=== PATIENT | female | born 1965 | race Caucasian/White ===

== ENCOUNTER 2020-01-25 16:31 | Observation (INO) | payer MEDICARE ==
[~2020-01-25] VITALS: Ht 152.4 cm; Wt 57.6 kg
[2020-01-25] MEDS ORDERED: SODIUM CHLORIDE 0.9% 1000ML 1,000 ML IV STA (16:49)
[2020-01-25] MEDS ORDERED: ASPIRIN 81 MG CHEW TAB PO ONE (17:00)
--- OUTSIDE RECORDS SUMMARY | 2020-01-25 17:06 | XMS REPORT | Continuity of Care Document ---
Author Author Mikaela [facility] Address Unknown Phone Unavailable Care Team Providers Care Mails Supervisor Name Role Phone [employer] Unavailable Un available Problems Problem Status Onset Date Classification Date Reported Comments Source Hypertension Active 03/11/2013 [facility] Hyperlipidemia Active 03/11/2013 [facility] Medications Medication Details Route Status Patient Instructions Ordering Provider Order Date Source Ambien 10 MG Oral Tablet (Act stephanie) Active [facility] Allergies, Adverse Reactions, Alerts Substance Category Reaction Severity Reaction type Status Date Reported Comments Source No Known Drug Allergies drug a llergy drug aller gy Active [facility] Immunizations No Data Provided for This Section Results No Data Provided for This Section Pathology Reports No Data Provided for This Section Diagnostic Reports No Data Provided for This Section Consultation Notes No Data Provided for This Section Discharge Summaries No Data Provided for This Section History and Physicals No Data Provided for This Section Vital Signs No Data Provided for This Section Encounters Location Location Details Encounter Type Encounter Number Reason For Visit Attending Provider ADM Date DC Date Status Source AUDIT [id number] 03/11/2013 03/11/2013 [facility] Procedures No Data Provided for This Section Assessment and Plan No Data Provided for This Section Plan of Care No Data Provided for This Section Social History Social History Date Source Marital History - Currently (Active) Current Smoker (305.1); (Active) Being A Social Drinker (Active) 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 03/11/2013 [facility] Functional Status No Data Provided for This Section
--- OUTSIDE RECORDS SUMMARY | 2020-01-25 17:06 | XMS REPORT | Clinical Summary ---
Author Author [facility] Address Unknown Phone Unavailable Care Team Providers Care Director Process Name Role Phone Nuvia Johnston MD PCP Allergies Not on File Medications Not on file Active Problems Not on file Social History Date Tobacco Use Types Packs/Day Years Used Never Assessed Sex Assigned at Date Recorded Not on file Last Filed Vital Signs Not on file Plan of Treatment Health Maintenance Due Date Last Done Comments CERVICAL CANCER SCREENING 1986 BREAST CANCER SCREENING 11/11/2015 COLONOSCOPY SCREENING 11/11/2015 SHINGLES VACCINES (#1) 11/11/2015 INFLUENZA VACCINE 10/19/2019 Results Not on fileafter 01/24/2019 Insurance Type Payer Benefit Subscriber ID Effective Phone Address Plan / Dates Group HMO [employer] MED[employer]ID [employer] [id number] 2017-P [facility]ON[facility] Advance Directives For more information, please contact: [phone] Patient Critical Care Cns Explanation Type Date Recorded Advance Directives, Living Will and Medical Power of Egg Tester
--- OUTSIDE RECORDS SUMMARY | 2020-01-25 17:07 | XMS REPORT | Continuity of Care Document ---
Author Author [facility] t Organization [facility] Address [address] [place] [address] Phone Unavailable Care Team Providers Care Tailoring Teacher Name Role Phone Glen Johnston MD PCP Ervin Perez MA Attphys MARJORIE EUGENE M.D. Attphys Unavailable LEE KAUFFMAN M.D. Attphys Unavailable [facility] [place] Attphys Unavailable SALVATORE ASTUDILLO D.O. 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 Disease Active 2017-12-06 00:00:00 MD Goodwin Encounter for adjustment and management of vascular ac cess device Encounter for adjustment and management of vascular access device Disease Active 2017-12-05 00:00:00 Overview: Added automaticall y from request for surgery [id number] MD Goodwin Malignant neoplasm of breast of unspecified site, fema le Malignant neoplasm of breast of unspecified site, female Disease Active 2017-12-05 00:00:00 Overview: Added automatically from request for surgery [id number] MD Goodwin Thoracic spondylosis without myelopathy Thoracic spondylosis without myelopathy Disease Active 2017-09-06 00:00:00 MD Goodwin Bilateral trochanteric bursitis Bilateral trochanteric bursitis Dis ease Active 2017-07-07 00:00:00 MD Zuniga son Pain in thoracic spine Pain in thoracic spine Disease Active 2017-07-07 00:00:00 MD Goodwin Lumbar radiculopathy Lumbar radiculopathy Disease Active 00:00:00 MD Goodwin Bursitis of right hip Bursitis of right hip Disease Active 09-17-26 00:00:00 Overview: 12/18 Regulatory Import MD Goodwin Neoplasm related pain (acute) (chronic) Neoplasm related rhoda n (acute) (chronic) Disease Active 2016-04-15 00:00:00 MD Goodwin 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 Active 2015-12-17 00:00:00 MD Goodwin 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 Disease Active 2015-11-30 00:00:00 MD Marshall nderson History of Uncontrolled other specified diabetes melli tus with hyperglycemia History of Uncontrolled other specified diabetes mellitus with hyperglycemia Problem Resolved [facility] History of insomnia History of insomnia Problem Resolved [facility] History of Multiparity History of Multiparity Problem Resolved [facility] Flashing light Flashing light Problem Active [facility] Chronic insomnia Chronic insomnia Problem Active [facility] Sinus tachycardia Sinus tachycardia Problem Active [facility] Essential (primary) hypertension Essential (primary) hypertensio n Problem Active [facility] History of chronic back pain History of chronic back pain Problem Active [facility] Neuropathy [facility]athy [facility] Hyperglycemia Hyperglycemia Problem Active [facility] Immunity status testing Immunity status testing Problem Active [facility] Flu vaccine need Flu vaccine need Problem Active [facility] PPD screening test PPD screening test Problem Active [facility] Tinea corporis Tinea corporis Problem Active [facility] BPPV (benign paroxysmal positional vertigo), bilateral BPPV (benign paroxysmal positional vertigo), bilateral Problem Active [facility] Hyperlipidemia Hyperlipidemia Problem Active [facility] Vision problem Vision problem Problem Active [facility] Depressive disorder Depressive disorder Problem Active [facility] Hearing problem, right Hearing problem, right Problem Active [facility] Pulsatile tinnitus Pulsatile tinnitus Problem Active [facility] Depression with anxiety Depression with anxiety Problem Active [facility] Abnormal glucose Abnormal glucose Problem Active [facility] Dizziness Dizziness Problem Active [facility] 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 Problem Active [facility] Vitamin D deficiency Vitamin D deficiency Problem Active [facility] Malignant neoplasm of axillary tail of left female mariola ast Malignant neoplasm of axillary tail of left female breast Problem Active [facility] Nausea and vomiting in adult Nausea and vomiting in adult Problem Active [facility] Anemia, unspecified type Anemia, unspecified type Problem Active [facility] Abnormal TSH Abnormal TSH Problem Active [facility] Headache Head[facility] Hypertension Hype rtension Active 03/11/2013 [facility] Problem Active 2013-03-11 20:18:02 Griffin Vasquez Hyperlipidemia Hype rlipidemia Active 03/11/2013 [facility] Problem Active 2013-03-11 20:18:02 M merrick Vasquez Allergies, Adverse Reactions, Alerts Allergy Name Allergy Type Status Severity Reaction(s) Onset Date Inacti ve Date Treating Clinician Comments Source oxycodone DA Active OR 2018-06-22 00:00:00 [facility] oxycodone DA Active OR 2018-06-21 00:00:00 [facility] No Known Allergies DA Active U 2018-05-20 00:00:00 [facility] OxyCONTIN T12A Allergy to drug (finding) Active [facility] fentanyl Allergy to drug (finding) Active [facility] No Known Drug Allergies No Known Drug Allergies Active Mikaela Vasquez Family History Family Member Diagnosis Comments Start Date Stop Date Source Mother Family history of Hypertension [facility] Mother Family history of Diabetes Mellitus [facility] Mother Family history of Coronary Artery Disease [facility] Mother Family history of Breast Cancer [facility] Mother Family history of diabetes mellitus [facility] Mother Family history of hypertension [facility] Father Family history of Hypertension [facility] Father Family history of Rheumatoid Arthritis [facility] Father Family history of hyperlipidemia [facility] Father Family history of hypertension [facility] Father Family history of cerebrovascular accident (CVA) [facility] Brother Family history of diabetes mellitus [facility] Maternal aunt -Breast cancer MD Dariel mckeon Unknown Family Member Family History 2013-03-11 20:18:02 2 20:18:02 [facility] Social History Social Habit Start Date Stop Date Quantity Comments Source History of tobacco use Cigarette Smoker MD Goodwin Sex Assigned At MD Goodwin Tobacco use and exposure 2017-12-23 00:00:00 2017-12-23 00:00:00 Sunil hoover used MD Goodwin Alcohol intake 2017-12-23 00:00:00 2017-12-23 00:00:00 Current non-drinker of alcohol (finding) MD Goodwin Tobacco Comment 2017-12-06 00:00:00 2017-12-06 00:00:00 Wants to quit 3 a day MD Goodwin Social History 2013-03-11 20:18:02 2013-03-11 20:18:02 [facility] Smoking Status Start Date Stop Date Source Smokes tobacco daily (finding) [facility] Former smoker 2017-12-23 00:00:00 2017-12-23 00:00:00 MD Zuniga son Medications Ordered Medication Name Filled Medication Name Start Date Stop Da te Current Medication? Ordering Clinician Indication Dosage Frequency Signature (SIG) Comments Components Source Sucralfate 1 GM Oral Tablet Sucralfate 1 GM Oral Tablet 2019-12-11 00:00:00 Yes MARJORIE EUGENE M.D. Q0.25D TAKE 1 TAB LET 4 TIMES DAILY, BEFORE MEALS AND AT BEDTIME. [facility] Vitamin D3 1.25 MG (86147 UT) Oral Tablet Vitamin D3 1 .25 MG (29400 UT) Oral Tablet 2019-11-26 00:00:00 Yes MARJORIE EUGENE M.D. TAKE 1 TABLET ONCE A WEEK [facility] Zoledronic Acid 4 MG/100ML Intravenous Solution Zoledr onic Acid 4 MG/100ML Intravenous Solution 2019-11-19 00:00:00 Yes MARJORIE SATTAR M.D. once a month [facility] cloNIDine HCl - 0.1 MG Oral Tablet cloNIDine HCl - 0.1 MG Or al Tablet 2019-11-19 00:00:00 Yes MARJORIE EUGENE M.D. TA KE 1 TABLET DAILY as needed if blood pressure > 150/90 [facility] Omeprazole 20 MG Oral Capsule Delayed Release Omeprazo le 20 MG Oral Capsule Delayed Release 2019-11-19 00:00:00 Yes MARJORIE EUGENE M.D. QD TAKE 1 CAPSULE DAILY EVERY MORNING BEFORE BREAKFAST. [facility] capecitabine (XELODA) 500 mg tablet 2018-01-11 00:00:00 Yes Malignant neoplasm of unspecified site of unspecified female breast 3000mg Take 6 tablets (3,000 mg) by mouth in divided doses. 3 tabs QAM and 3 tabs QPM x 14 days, then none x 7 days. MD Goodwin HYDROcodone-acetaminophen (NORCO) 7.5 mg-325 mg per tablet 2018-01-11 00:00:00 Yes Malignant neoplasm of unspec ified site of unspecified female breast 1{tbl} Take 1 tablet by mouth every 6 (six) hours as needed for moderate pain. MD Goodwin nebivolol (BYSTOLIC) 5 MG tablet 2017-12-29 18:45:26 Yes 5mg Take 5 mg by mouth daily. MD Goodwin lactulose (CHRONULAC) 10 gram/15 mL solution 2017-12-20 00:0 0:00 Yes Malignant neoplasm of unspecified site of unspecified female breast 10g Take 15 mL (10 g) by mouth 2 (two) times a day as needed for constipation. MD Goodwin lidocaine-prilocaine (EMLA) 2.5-2.5% cream 2017-12-06 00:00: 00 Yes Encounter for adjustment and management of vascular access device Apply to Port-A-Cath area 30 to 45 minutes prior to port access as directed (topical anesthetic to the anterior chest only). MD Goodwin IBRANCE 125 mg capsule 2017-11-05 00:00:00 Yes 125mg Take 125 mg by mouth daily. MD Goodwni traMADol (ULTRAM) 50 mg tablet 2017-10-03 00:00:00 Yes Neoplasm related pain (acute) (chronic) 50mg Take 1 tablet (50 mg) by mouth every 6 (six) hours as needed for moderate pain. MD Goodwin Ambien 10 MG Oral Tablet 2013-03-11 20:18:02 Yes (Active) Mikaela Vasquez Buprenorphine 10 MCG/HR Transdermal Patch Weekly Bupre norphine 10 MCG/HR Transdermal Patch Weekly Yes [facility] traMADol HCl - 50 MG Oral Tablet traMADol HCl - 50 MG Oral Tablet Yes TAKE 1 TABLETS BY MOUTH EVERY 12 HOURS NEEDED FOR PAIN [facility] Gabapentin 600 MG Tab (OR) - [id number]_Deactivated Gabapen tin 600 MG Tab (OR) - [id number]_Deactivated Yes 1 TAKE 1 TABLET BEDTIM E [facility] Immunizations Ordered Immunization Name Filled Immunization Name Date Status Comments Source Fluzone Quadrivalent 0.5 ML Intramuscular Suspension 2018-02-22 12:01:00 Completed [facility] Recombivax HB 10 MCG/ML Injection Suspension 2016-07-25 10 :10:00 Completed [facility] Hepatitis B 2016-06-24 14:23:00 Completed [facility] Tubersol 5 UNIT/0.1ML Intradermal Solution 2016-06-21 14:4 3:00 Completed [facility] Tdap (Adacel) 2016-06-21 13:17:00 [facility] Influ[facility] 2016-01-14 16:03:00 [facility] Vital Signs Vital Name Observation Time Observation Value Comments Source Systolic blood pressure 2019-12-11 09:39:00 120 mm[Hg] Loca tion: LUE; Position: Sitting [facility] Diastolic blood pressure 2019-12-11 09:39:00 66 mm[Hg] Loc ation: LUE; Position: Sitting [facility] Body height 2019-12-11 09:39:00 60 [in_us] [facility] Weight 2019-12-11 09:39:00 134.375 [lb_av] [facility] Body mass index (BMI) [Ratio] 2019-12-11 09:39:00 26.24 kg/m2 [facility] Body temperature 2019-12-11 09:39:00 97.4 [degF] Method: Temporal [facility] Heart Rate 2019-12-11 09:39:00 118 /min [facility] Respiratory rate 2019-12-11 09:39:00 16 /min [facility] Systolic blood pressure 2019-11-19 08:13:00 138 mm[Hg] Loca tion: RUE; Position: Sitting [facility] Diastolic blood pressure 2019-11-19 08:13:00 90 mm[Hg] Loc ation: RUE; Position: Sitting [facility] Heart Rate 2019-11-19 08:13:00 116 /min [facility] Body height 2019-11-19 08:13:00 60 [in_us] [facility] Weight 2019-11-19 08:13:00 134.3125 [lb_av] [facility] Body mass index (BMI) [Ratio] 2019-11-19 08:13:00 26.23 kg/m2 [facility] Body temperature 2019-11-19 08:13:00 98 [degF] Method: Temporal [facility] Respiratory rate 2019-11-19 08:13:00 16 /min [facility] BP Systolic 2018-10-05 10:19:00 126 mm[Hg] Location: RUE; Positi on: Sitting [facility] BP Diastolic 2018-10-05 10:19:00 89 mm[Hg] Location: RUE; Positi on: Sitting [facility] Heart Rate 2018-10-05 10:19:00 111 /min Location: R Brachial Artery; [facility] BP Systolic 2018-10-05 10:16:00 147 mm[Hg] Location: RUE; Positi on: Sitting [facility] BP Diastolic 2018-10-05 10:16:00 93 mm[Hg] Location: RUE; Positi on: Sitting [facility] Heart Rate 2018-10-05 10:16:00 109 /min Location: R Brachial Artery; [facility] Height 2018-10-05 10:16:00 60 [in_us] [facility] Weight 2018-10-05 10:16:00 147.5625 [lb_av] [facility] Body Mass Index Calculated 2018-10-05 10:16:00 28.82 kg/m2 [facility] Temperature 2018-10-05 10:16:00 97.8 [degF] Method: Temporal [facility] Respiration Rate 2018-10-05 10:16:00 109 /min [facility] Systolic 2018-07-17 10:22:00 128 mm[Hg] [facility] BP Diastolic 2018-07-17 10:22:00 85 mm[Hg] [facility] Height 2018-07-17 10:22:00 60 [in_us] [facility] Weight 2018-07-17 10:22:00 149.125 [lb_av] [facility] Body Mass Index Calculated 2018-07-17 10:22:00 29.12 kg/m2 [facility] Heart Rate 2018-07-17 10:22:00 80 /min [facility] BP Systolic 2018-06-05 09:30:00 132 mm[Hg] Location: ALESHA Positi on: Sitting [facility] BP Diastolic 2018-06-05 09:30:00 86 mm[Hg] Location: SLY; Positi on: Sitting [facility] Height 2018-06-05 09:30:00 60 [in_us] [facility] Weight 2018-06-05 09:30:00 146.3125 [lb_av] [facility] Body Mass Index Calculated 2018-06-05 09:30:00 28.57 kg/m2 [facility] Temperature 2018-06-05 09:30:00 98.4 [degF] Method: Temporal [facility] Heart Rate 2018-06-05 09:30:00 108 /min [facility] Respiration Rate 2018-06-05 09:30:00 16 /min [facility] BP Systolic 2018-03-26 09:08:00 116 mm[Hg] Location: JOSI Positi on: Sitting [facility] BP Diastolic 2018-03-26 09:08:00 78 mm[Hg] Location: [place]; Pos[place] on: Sitting [facility] Height 2018-03-26 09:08:00 60 [in_us] [facility] Weight 2018-03-26 09:08:00 149.25 [lb_av] [facility] Body Mass Index Calculated 2018-03-26 09:08:00 29.15 kg/m2 [facility] Temperature 2018-03-26 09:08:00 98.1 [degF] Method: Temporal [facility] Heart Rate 2018-03-26 09:08:00 98 /min [facility] Respiration Rate 2018-03-26 09:08:00 12 /min [facility] BP Systolic 2018-02-22 09:18:00 139 mm[Hg] Location: AL[place]HA Positi on: Sitting [facility] BP Diastolic 2018-02-22 09:18:00 88 mm[Hg] Location: SLY; Positi on: Sitting [facility] Height 2018-02-22 09:18:00 60 [in_us] [facility] Weight 2018-02-22 09:18:00 153.3125 [lb_av] [facility] Body Mass Index Calculated 2018-02-22 09:18:00 29.94 kg/m2 [facility] Temperature 2018-02-22 09:18:00 98.1 [degF] Method: Temporal [facility] Heart Rate 2018-02-22 09:18:00 76 /min [facility] Respiration Rate 2018-02-22 09:18:00 16 /min [facility] Procedures Procedure Date / Time Performed Performing Clinician Sourc e [Q] FECAL GLOBIN BY IMMUNOCHEMISTRY 2019-12-04 00:00:00 [facility] [QL] TSH, 3RD GENERATION 2019-11-26 00:00:00 [facility] [QL] CBC (INCLUDES DIFF/PLT) 2019-11-26 00:00:00 [facility] [Q] IRON, TIBC AND FERRITIN PANEL 2019-11-26 00:00:00 [facility] [QL] VITAMIN B12/FOLATE, SERUM PANEL 2019-11-26 00:00:00 [facility] [QL] CBC (INCLUDES DIFF/PLT) 2019-11-20 00:00:00 [facility] [Q] IRON, TIBC AND FERRITIN PANEL 2019-11-20 00:00:00 [facility] [QL] VITAMIN B12/FOLATE, SERUM PANEL 2019-11-20 00:00:00 [facility] [Q] FECAL GLOBIN BY IMMUNOCHEMISTRY 2019-11-20 00:00:00 [facility] [QL] TSH, 3RD GENERATION W/REFLEX TO FT4 2019-11-20 00:00:00 [facility] [QL] CBC (INCLUDES DIFF/PLT) 2019-11-19 00:00:00 [facility] [QL] CMP W/EGFR 2019-11-19 00:00:00 [facility] [QL] TSH, 3RD GENERATION W/REFLEX TO FT4 2019-11-19 00:00:00 [facility] [QL] HEMOGLOBIN A1c 2019-11-19 00:00:00 [facility] [QL] VITAMIN D, 25-HYDROXY, LC/MS/MS 2019-11-19 00:00:00 [facility] [QL] URINALYSIS, COMPLETE W/REFLEX TO CULTURE 2019-11-19 00:00:0 0 [facility] MRA and MRV Brain wo contrast [id number] 2018-07-17 00:00:00 [facility] History of Tubal Ligation [facility] History of Dilation And Curettage [facility] History of Breast Surgery Mastectomy [facility] Plan of Care Planned Activity Planned Date Details Comments Source Future Scheduled Test 2020-01-01 00:00:00 [QL] TSH, 3RD GENE RATION W/REFLEX TO FT4 [code = [QL] TSH, 3RD GENERATION W/REFLEX TO FT4] [facility] Diagnostic Test Pending 2019-12-04 00:00:00 [Q] FECAL GLOBIN BY IMMUNOCHEMISTRY [code = [Q] FECAL GLOBIN BY IMMUNOCHEMISTRY] [facility] Future Scheduled Test 2019-10-19 00:00:00 INFLUENZA VACCINE [code = INFLUENZA VACCINE] [facility] Scheduled Test 2015-11-11 00:00:00 BREAST CANCER SCRE ENING [code = BREAST CANCER SCREENING] [facility] Scheduled Test 2015-11-11 00:00:00 COLONOSCOPY SCREEN ING [code = COLONOSCOPY SCREENING] [facility] Scheduled Test 2015-11-11 00:00:00 SHINGLES VACCINES (#1) [code = SHINGLES VACCINES (#1)] [facility] Future Scheduled Test 1986 00:00:00 Screening for melany gnant neoplasm of cervix (procedure) [code = 940957823] [facility] Encounters Start Date/Time End Date/Time Encounter Type Admission Type Attendi [facility] Facility Care Department Encounter ID Source 2019-12-11 10:00:00 2019-12-11 10:00:00 Appointment; MARJORIE EUGENE M.D. SATTAR, BEENA, M.D. [facility] [id number] [facility] 2019-11-19 08:00:00 2019-11-19 08:00:00 Appointment; MARJORIE EUGENE M.D. SATTAR, BEENA, M.D. [facility] [id number] [facility] 2018-10-05 10:30:00 2018-10-05 10:30:00 Appointment; MARJORIE EUGENE M.D. SATTAR, BEENA, M.D. [facility] [id number] [facility] 2018-10-05 10:30:00 2018-10-05 10:30:00 Appointment; MARJORIE EUGENE M.D. SATTAR, BEENA, M.D. [facility] [id number] [facility] 2018-07-17 09:30:00 2018-07-17 09:30:00 Appointment; LEE KAUFFMAN M.D. BYRD, MICHAEL, M.D. [facility] Otorhinolaryngology [place] [address] [place] [address] Physicians 2018-06-25 09:00:00 2018-06-25 09:00:00 Appointment; MARJORIE EUGENE M.D. SATTAR, BEENA, M.D. [facility] [id number] [facility] 2018-06-05 09:30:00 2018-06-05 09:30:00 Appointment; MARJORIE EUGENE M.D. SATTAR, BEENA, M.D. [facility] [id number] [facility] 2018-03-26 09:00:00 2018-03-26 09:00:00 Appointment; MARJORIE EUGENE M.D. SATTAR, BEENA, M.D. [facility] [id number] [facility] 2018-02-22 09:15:00 2018-02-22 09:15:00 Appointment; MARJORIE EUGENE M.D. SATTAR MARJORIE, M.D. [facility] [id number] [facility] 2016-08-19 08:30:00 2016-08-19 08:30:00 Appointment; MARJORIE EUGENE M.D. SATTAR, BEENA, M.D. [facility] [id number] [facility] 2016-07-25 08:00:00 2016-07-25 08:00:00 Appointment; MARJORIE EUGENE M.D. SATTAR, BEENA, M.D. [facility] [id number] [facility] 2016-07-08 08:30:00 2016-07-08 08:30:00 Appointment; MARJORIE EUGENE M.D. SATTAR, BEENA, M.D. [facility] [id number] [facility] 2016-06-30 10:00:00 2016-06-30 10:00:00 [facility] [id number] [facility] 2016-06-24 07:45:00 2016-06-24 07:45:00 Appointment; MARJORIE EUGENE M.D. SATTAR, BEENA, M.D. [facility] [id number] [facility] 2016-06-21 13:30:00 2016-06-21 13:30:00 Appointment; MARJORIE EUGENE M.D. SATTAR, BEENA, M.D. [facility] [id number] [facility] 2016-05-27 08:30:00 2016-05-27 08:30:00 Appointment; MARJORIE EUGENE M.D. SATTAR, BEENA, M.D. [facility] [id number] [facility] 2016-04-15 13:30:00 2016-04-15 13:30:00 Appointment; MARJORIE EUGENE M.D. SATTAR, BEENA, M.D. [facility] UTP [id number] [facility] 2016-03-24 09:45:00 2016-03-24 09:45:00 Appointment; SALVATORE ASTUDILLO D.O. YEH, SHAO-CHUN, D.O. UTP UTP [id number] [facility] 2013-03-11 14:18:02 2013-03-11 14:18:[address] [id number] Results Test Description Test Time Test Comments Results Result Comments Source CBC W/MANUAL DIFF 2019-12-24 16:47:00 Test Item WHITE BLOOD CELL (test code = WBC) 4.14 x10 3/uL 4.5-11.0 L RED BLOOD CELL (test code = RBC) 2.98 x10 6/uL 3.54-5.02 L HEMOGLOBIN (test code = HGB) 8.6 g/dL 11.0-15.0 L HEMATOCRIT (test code = HCT) 27.2 % 33.0-45.0 L MEAN CELL VOLUME (test code = MCV) 91.3 fL 81.0-99.0 N MEAN CELL HGB (test code = MCH) 28.9 pg 27.0-33.0 N MEAN CELL HGB CONCETRATION (test code = MCHC) 31.6 g/dL 33.0-37. 0 L RED CELL DISTRIBUTION WIDTH CV (test code = RDW) 17.8 % 11.5- 14.5 H RED CELL DISTRIBUTION WIDTH SD (test code = RDW-SD) 58.5 fL 37 .0-54.0 H PLATELET COUNT (test code = PLT) 135 x10 3/uL 150-400 L MEAN PLATELET VOLUME (test code = MPV) 10.8 fL 7.0-9.0 H SEGMENTED NEUTROPHILS (test code = SEG) 45.9 % 37-69 N BAND NEUTROPHIL (test code = BAND) 1.8 % 0.0-10.0 N LYMPHOCYTE (test code = LYMPH) 45.0 % 23-55 N MONOCYTE (test code = MON) 5.5 % 0-10 N BASOPHIL (test code = BASO) 0.9 % 0.0-2.0 N METAMYELOCYTE (test code = META) 0.9 % 0.0-0.0 H POLYCHROMASIA (test code = POLC) SLIGHT POIKILOCYTOSIS (test code = POIK) SLIGHT ANISOCYTOSIS (test code = ANISO) 1+ MICROCYTOSIS (test code = MICR) 1+ MACROCYTOSIS (test code = MACR) FEW ELLIPTOCYTES (test code = ELL) FEW OVALOCYTES (test code = OVAL) FEW PLATELET ESTIMATE (test code = PLTEST) Slightly Decreased THOUSAND ADEQUATE PLATELET MORPHOLOGY (test code = PLTMORPH) LARGE PLATELETS FEW LARGE PLTS SEEN CBC W/MANUAL [id number] 16:01:00* Test Item Value Reference Range Interpretation Comments WHITE BLOOD CELL (test code = WBC) 4.14 x10 3/uL 4.5-11.0 L RED BLOOD CELL (test code = RBC) 2.98 x10 6/uL 3.54-5.02 L HEMOGLOBIN (test code = HGB) 8.6 g/dL 11.0-15.0 L HEMATOCRIT (test code = HCT) 27.2 % 33.0-45.0 L MEAN CELL VOLUME (test code = MCV) 91.3 fL 81.0-99.0 N MEAN CELL HGB (test code = MCH) 28.9 pg 27.0-33.0 N MEAN CELL HGB CONCETRATION (test code = MCHC) 31.6 g/dL 33.0-37. 0 L RED CELL DISTRIBUTION WIDTH CV (test code = RDW) 17.8 % 11.5- 14.5 H RED CELL DISTRIBUTION WIDTH SD (test code = RDW-SD) 58.5 fL 37 .0-54.0 H PLATELET COUNT (test code = PLT) 135 x10 3/uL 150-400 L MEAN PLATELET VOLUME (test code = MPV) 10.8 fL 7.0-9.0 H BAND NEUTROPHIL (test code = BAND) % 0.0-10.0 ANISOCYTOSIS (test code = ANISO) PLATELET ESTIMATE (test code = PLTEST) THOUSAND ADEQUATE - US ABDOMEN [id number] 08:31:00 Name: ANTONIO BAUMAN [facility] : 1965 Age/S: 54 / F [address] [place] [address] Unit #: [id number] Loc: [place] [address] Phys: Lizzy Aparicio MD Acct: [id number] Dis Date: Status: REG CLI PHONE #: [phone] Exam Date: 12/09/2019822 FAX #: [phone] Reason: NAUSEA,RIGHT FLANK PAIN EXAMS: CPT CODE: [id number] US ABDOMEN COMPLETE 44029 PROCEDURE: ABDOMEN ULTRASOUND CLINICAL INDICATION: Right flank pain, nausea, history breast cancer COMPARISON: CT abdomen pelvis 10/28/2019. TECHNIQUE: Real time sonographic imaging is obtained of the abdomen with limited doppler evaluation. FINDINGS: LIVER: There are at least 3 hypoechoic liver lesions compatible with metastatic disease, largest posterior right lobe of the liver measures 3.8 cm in diameter. BILE DUCTS: The intrahepatic and extrahepatic bile ducts are not dilated with the common bile duct measuring 6.7 mm. GALLBLADDER: Surgically removed. PANCREAS: The visualized pancreas is un remarkable. SPLEEN: The spleen is unremarkable. KIDN EYS: The right kidney measures 10.8 cm in length. The left kidney measures 10.7 cm in length. There is normal renal contour and morphology, with no rmal parenchymal echotexture. There is no hydronephrosis. AO RTA AND INFERIOR VENA CAVA: Visualized portions are unremarkable. IMPRESSION: 1. Cholecystectomy. 2. Liver metastases. SL: [id number] at 0831 Reported and signed by: Pancho Trevino M.D. PAGE 1 Signed Report (CONTINUED) Name: ANTONIO BAUMAN [facility] : 1965 Age/S: 54 / F [address] [place] [address] Blvd Unit #: [id number] Loc: [place] [address] Phys: Lizzy Aparicio MD Acct: [id number] Dis Date: Status: REG CLI PHONE #: [phone] Exam Date: 12/09/2019822 FAX #: [phone] Reason: NAUSEA,RIGHT FLANK PAIN EXAMS: CPT CODE: [id number] US ABDOMEN COMPLETE 14837 < Continued> CC: Lizzy Aparicio MD; Marjorie Eugene MD Technologist: Patsy Cardozo RDMS(AB)(OB) Trnscb Date/Time: 12/09/2019 (830) t.ETG Orig Print D/T: S: 12/09/2019 (0834) Probe: PAGE 2 Signed Report [Q] FECAL GLOBIN BY [id number] 00:00:00* Test Item Value Reference Range Interpretation Comments FECAL GLOBIN BY IMMUNOCHEMISTRY (test code = 64554-7) See Comment FECAL GLOBIN BY IMMUNOCHEMISTRY Micro Number: [id number] Test Status: Final Specimen Source: INSURE (TM) FOBT TEST CARD Specimen Quality: Adequate Fecal Globin: Not Detected [facility][Q] IRON, TIBC AND FERRITIN [id number] 14:26:00* Test Item Value Reference Range Interpretation Comments IRON, TOTAL (test code = IRON, TOTAL) 143 {mcg/dl} 45-160 N IRON BINDING CAPACITY (test code = IRON BINDING CAPACITY) 27 5 {mcg/dL ca} 250-450 N % SATURATION (test code = % SATURATION) 52 {% CALC} 16-45 FERRITIN (test code = FERRITIN) 1620 ng/ml 16-232 [facility][QL] CBC (INCLUDES DIFF/PLT)2019-12-02 14:26:00* Test Item Value Reference Range Interpretation Comments WHITE BLOOD CELL COUNT (test code = WHITE BLOOD CELL COUNT) 5.4 {Thousand/u} 3.8-10.8 N RED BLOOD CELL COUNT (test code = RED BLOOD CELL COUNT) 3.25 {Million/uL} 3.80-5.10 HEMOGLOBIN; Below Low Threshold (test code = 30953-2) 9.0 g/dl 11.7-15.5 HEMATOCRIT; Below Low Threshold (test code = 4544-3) 27.3 % 3 5.0-45.0 MCV; Normal (test code = 787-2) 84.0 fL 80.0-100.0 N MCHC; Normal (test code = 73647-5) 33.0 g/dl 32.0-36.0 N RDW; Above High Threshold (test code = 788-0) 15.8 % 11.0-15. 0 PLATELET COUNT; Normal (test code = 777-3) 236 {Thousand/u} 140-400 N MPV; Normal (test code = 29722-8) 10.2 fL 7.5-12.5 N ABSOLUTE NEUTROPHILS (test code = ABSOLUTE NEUTROPHILS) 2786 {cells/uL} 8382-4995 N ABSOLUTE LYMPHOCYTES (test code = ABSOLUTE LYMPHOCYTES) 2047 {cells/uL} 850-3900 N ABSOLUTE MONOCYTES (test code = ABSOLUTE MONOCYTES) 389 {cells/uL} 200-950 N ABSOLUTE EOSINOPHILS (test code = ABSOLUTE EOSINOPHILS) 119 {cells/ uL} 15-500 N ABSOLUTE BASOPHILS (test code = ABSOLUTE BASOPHILS) 59 {cells/uL} 0 -200 N NEUTROPHILS (test code = NEUTROPHILS) 51.6 % N LYMPHOCYTES (test code = LYMPHOCYTES) 37.9 % N MONOCYTES; Normal (test code = 76168-9) 7.2 % N EOSINOPHILS; Normal (test code = 17231-9) 2.2 % N BASOPHILS; Normal (test code = 17039-7) 1.1 % N COMMENT(S) (test code = COMMENT(S)) See Comment Review of peripheral smear confirmsautomated results. [facility][QL] VITAMIN B12/FOLATE, SERUM [id number] 14:26:00* Test Item Value Reference Range Interpretation Comments VITAMIN B12 (test code = VITAMIN B12) 333 pg/ml 200-1100 N Please Note: Although the reference range for ltumjhaD09 is 200-1100 pg/mL, it has been reported that between5 and 10% of patients with values between 200 and 400pg/mL may experience neuropsychiatric and hematologicabnormalities due to occult B12 deficiency; less than 1%of patients with values above 400 pg/mL will have symptoms. FOLATE, SERUM (test code = FOLATE, SERUM) 6.2 ng/ml N Reference Range Low: <3.4 Borderline: 3.4-5.4 Normal: >5.4 [facility][QL] CMP [id number] 09:38:00* Test Item Value Reference Range Interpretation Comments GLUCOSE; Normal (test code = 1547-9) 98 mg/dl 65-99 N Fasting reference interval UREA NITROGEN (BUN) (test code = UREA NITROGEN (BUN)) 15 mg/dl 7-25 N CREATININE (test code = CREATININE) 0.72 mg/dl 0.50-1.05 N For patients >49 years of age, the reference limitfor Creatinine is approximately 13% higher for peopleidentified as -English. eGFR NON-AFR. CYMRO (test code = eGFR NON-AFR. CYMRO) 95 {ML/MIN/1.7} > OR = 60 N eGFR (test code = eGFR ) 11 0 {ML/MIN/1.7} > OR = 60 N BUN/CREATININE RATIO (test code = BUN/CREATININE RATIO) NOT APPLICA BLE 6-22 SODIUM (test code = SODIUM) 138 mmol/L 135-146 N POTASSIUM (test code = POTASSIUM) 4.3 mmol/L 3.5-5.3 N CHLORIDE (test code = CHLORIDE) 104 mmol/L 98-110 N CARBON DIOXIDE (test code = CARBON DIOXIDE) 24 mmol/L 20-32 N CALCIUM (test code = CALCIUM) 9.4 mg/dl 8.6-10.4 N PROTEIN, TOTAL (test code = PROTEIN, TOTAL) 7.0 g/dl 6.1-8.1 N ALBUMIN (test code = ALBUMIN) 4.0 g/dl 3.6-5.1 N GLOBULIN (test code = GLOBULIN) 3.0 {G/DL CALC} 1.9-3.7 N ALBUMIN/GLOBULIN RATIO (test code = ALBUMIN/GLOBULIN RATIO) 1.3 {CALC} 1.0-2.5 N BILIRUBIN, TOTAL; Normal (test code = 15148-7) 0.5 mg/dl 0.2-1.2 N ALKALINE PHOSPHATASE (test code = ALKALINE PHOSPHATASE) 141 u/l 37-153 N AST; Normal (test code = 1916-6) 24 u/l 10-35 N ALT; Below Low Threshold (test code = 1742-6) 5 u/l 6-29 [facility][QL] URINALYSIS, COMPLETE W/REFLEX TO CULTURE 2019-11-19 09:38:00* Test Item Value Reference Range Interpretation Comments COLOR; Normal (test code = 5778-6) DARK YELLOW YELLOW N APPEARANCE (test code = APPEARANCE) TURBID CLEAR A SPECIFIC GRAVITY; Normal (test code = 2965-2) 1.031 1.001-1. 035 N PH; Normal (test code = 2756-5) < OR = 5.0 5.0-8.0 N GLUCOSE; Normal (test code = 1547-9) NEGATIVE NEGATIVE N BILIRUBIN; Normal (test code = 54972-7) NEGATIVE NEGATIVE N Verified by repeat analysis. KETONES; Abnormal (test code = 30595-3) TRACE NEGATIVE A OCCULT BLOOD; Normal (test code = 94189-4) NEGATIVE NEGATIVE N PROTEIN; Abnormal (test code = 93168-0) 1+ NEGATIVE A NITRITE (test code = NITRITE) NEGATIVE NEGATIVE N LEUKOCYTE ESTERASE (test code = LEUKOCYTE ESTERASE) NEGATIVE NE GATIVE N WBC; Normal (test code = 6690-2) 0-5 < OR = 5 N RBC; Normal (test code = 789-8) NONE SEEN < OR = 2 N SQUAMOUS EPITHELIAL CELLS (test code = 11362-4) 0-5 < OR = 5 BACTERIA; Abnormal (test code = 630-4) FEW NONE SEEN A AMORPHOUS SEDIMENT; Abnormal (test code = 8246-1) MANY NONE OR FEW A HYALINE CAST; Abnormal (test code = 27380-0) 0-1 NONE SEEN A COMMENTS (test code = 82746-3) FEW MUCOUS THREADS NOTE (test code = NOTE) See Below This urine was analyzed for the presence of WBC, RBC, bacteria, casts, and other formed elements. Only those elements seen were reported. [facility][Q] REFLEXIVE URINE [id number] 09:38:00* Test Item Value Reference Range Interpretation Comments REFLEXIVE URINE CULTURE (test code = REFLEXIVE URINE C ULTURE) NO CULTURE INDICATED [facility][QL] CBC (INCLUDES DIFF/PLT)2019-11-19 09:38:00* Test Item Value Reference Range Interpretation Comments WHITE BLOOD CELL COUNT (test code = WHITE BLOOD CELL COUNT) 4.6 {Thousand/u} 3.8-10.8 N RED BLOOD CELL COUNT (test code = RED BLOOD CELL COUNT) 3.75 {Million/uL} 3.80-5.10 HEMOGLOBIN; Below Low Threshold (test code = 71237-5) 10.2 g/dl 11.7-15.5 HEMATOCRIT; Below Low Threshold (test code = 4544-3) 31.8 % 3 5.0-45.0 MCV; Normal (test code = 787-2) 84.8 fL 80.0-100.0 N MCHC; Normal (test code = 72288-5) 32.1 g/dl 32.0-36.0 N RDW; Above High Threshold (test code = 788-0) 15.3 % 11.0-15. 0 PLATELET COUNT; Normal (test code = 777-3) 300 {Thousand/u} 140-400 N MPV; Normal (test code = 80165-0) 9.8 fL 7.5-12.5 N ABSOLUTE NEUTROPHILS (test code = ABSOLUTE NEUTROPHILS) 2217 {cells/uL} 2442-2865 N ABSOLUTE LYMPHOCYTES (test code = ABSOLUTE LYMPHOCYTES) 1849 {cells/uL} 850-3900 N ABSOLUTE MONOCYTES (test code = ABSOLUTE MONOCYTES) 336 {cells/uL} 200-950 N ABSOLUTE EOSINOPHILS (test code = ABSOLUTE EOSINOPHILS) 138 {cells/ uL} 15-500 N ABSOLUTE BASOPHILS (test code = ABSOLUTE BASOPHILS) 60 {cells/uL} 0 -200 N NEUTROPHILS (test code = NEUTROPHILS) 48.2 % N LYMPHOCYTES (test code = LYMPHOCYTES) 40.2 % N MONOCYTES; Normal (test code = 30625-1) 7.3 % N EOSINOPHILS; Normal (test code = 00613-3) 3.0 % N BASOPHILS; Normal (test code = 28074-7) 1.3 % N [facility][QL] TSH, 3RD GENERATION W/REFLEX TO [id number] 09:38:00* Test Item Value Reference Range Interpretation Comments TSH, 3RD GENERATION W/REFLEX TO FT4 (fermin t code = TSH, 3RD GENERATION W/REFLEX TO FT4) 5.06 {MIU/L} Reference Range > or = 20 Years 0.40-4.50 Ranges First trimester 0.26-2.66 Second trimester 0.55-2.73 Third trimester 0.43-2.91 [facility][QL] T4, [id number] 09:38:00* Test Item Value Reference Range Interpretation Comments T4, FREE (test code = T4, FREE) 1.2 ng/dl 0.8-1.8 N [facility][QL] VITAMIN D, 25-HYDROXY, LC/MS/[id number] 09:38:00* Test Item Value Reference Range Interpretation Comments VITAMIN D,25-OH,TOTAL,IA (test code = VITAMIN D,25-OH,TOTAL,IA) 21 ng/ml 30-100 Vitamin D Status 25-OH Vitamin D : Deficiency: <20 ng/mLInsufficiency: 20 - 29 ng/mLOptimal: > or = 30 ng/mL For 25-OH Vitamin D testing on patients on D2-supplementation and patients for whom quantitation of D2 and D3 fractions is required, the QuestAssureD()25-OH VIT D, (D2,D3), LC/MS/MS is recommended: order code 96876 (patients >2yrs).See Note 1 Note 1 For additional information, please refer to http://[email or web address]/faq/NGB615 (This link is being provided for informational/educational purposes only.) [facility][QL] HEMOGLOBIN [id number] 09:38:00* Test Item Value Reference Range Interpretation Comments HEMOGLOBIN A1c; Above High Threshold (test code = 4548-4) 6.2 {% of total} <5.7 For someone without known diabetes, a he moglobin A1c value between 5.7% and 6.4% is consistent withprediabetes and should be confirmed with a follow-up test. For someone with known diabetes, a value <7%indicates that their diabetes is well controlled. U5gjsuxpsn should be individualized based on duration ofdiabetes, age, comorbid conditions, and otherconsiderations. This assay result is consistent with an increased riskof diabetes. Currently, no consensus exists regarding use ofhemoglobin A1c for diagnosis of diabetes for children. [facility][QL] MICROALBUMIN, RANDOM URINE (W/CREATININE) 2019-11-19 09:38:00* Test Item Value Reference Range Interpretation Comments CREATININE, RANDOM URINE (test code = CREATININE, RANDOM URINE) TNP TEST NOT PERFORMED Specimen has been discarded. MICROALBUMIN (test code = MICROALBUMIN) TNP TEST NOT PERFORMED Specimen has been discarded. [facility]- MRI BRAIN WO/W [id number] 13:09:00 FAX: Lizzy Small MD [phone] [place]: St: REG FAX: Marjorie Cantor MD [phone] Name: ANTONIO BAUMAN [facility] : 1965 Age/S: 53/F [address] [place] [address] Unit #: [id number] Loc: [place] [address] Phys: Lizzy Aparicio MD Acct: [id number] Dis Date: Status: REG CLI PHONE #: [phone] Exam Date: 11/08/2019 1225 FAX #: [phone] Reason: BREAST CANCER, DIZZIN ESS, NAUSEA EXAMS: CPT CODE: [id number] MRI BRAIN WO/W CONT 74399 MRI brain without and with contrast 11/08/2019 HIST ORY: Breast cancer, dizziness, nausea PROCEDURE: Multiplanar multi sequence imaging of the brain is performed without and with contrast. 13 mL of gadolinium were injected intravenously Comparison is m desmond to 05/21/2018 FINDINGS: No acute hemorrhage, midline shift, ext ra-axial fluid collection, or hydrocephalus is present. The visualized ma stoid air cells are clear. Mild bilateral maxillary mucosal thickening is noted. There is no paranasal sinus air-fluid level. No significant area of abnormal increased FLAIR signal is identified. There is no bloo dilma artifact on the heme sequence to suggest remote hemorrhage. Cranioce rvical junction and corpus callosum are within normal limits. No abnormal enhancement is present on post contrast imaging. Diffusion-weighted imag ing demonstrates no acute ischemic event. No evidence for acute infarct i s present. IMPRESSION: No acute intracranial abnormality . No abnormal enhancement. SL: [id number] at 1309 Reported and signed b y: Beto Watson M.D. CC: Lizzy Aparicio MD; Marjorie Eugene MD Technologist: RT Vanessa(R)(MR) Trnscrd Date/Time/By: 11/08/2019 (0678) : By: [email or web address] Orig P rint D/T: S: 11/08/2019 (7067) PAGE 1 Signed Report - NM BONE WHOLE [id number] 11:10:00 FAX: Lizzy Small MD [phone] [place]: St: REG FAX: Marjorie Cantor MD [phone] Name: BAUMANANTONIO [facility] : 1965 Age/S: 53/F [address] [place] [address] Unit #: [id number] Loc: [place] [address] Phys: Lizzy Aparicio MD Acct: [id number] Dis Date: Status: REG CLI PHONE #: [phone] Exam Date: 10/28/2019 1059 FAX #: [phone] Reason: MALIG NEOPLASM OF UPPER-OUTER QUADRANT EXAMS: CPT CODE: [id number] NM BONE WHOLE BODY 28663 Nuclear medicine whole-body bone scan 10/28/2019 HISTORY: Malignant neoplasm of breast PROCEDURE: After the intravenous injection of 25 mCi of technetium 99m HDP, whole body anterior and posterior projection imaging was performed followed by spot images of the ribs and pelvis Comparison is made to 06/13/2019 FINDINGS: Abnormal uptake involving the proximal left humerus is not significantly changed. Uptake involving the mid right humerus is unchanged. Abnormal activity involving the bilateral ribs is unchanged. Abnormal activity involving the proximal right femur is unchanged. Increased activity involving the proximal tibia bilaterally is not significantly changed. Abnormal a ctivity overlying the left ilium is unchanged. IMPRESSION: Stable exam. Stable metastatic disease disease involving proximal left humerus, mid right humerus, bilateral ribs, proximal right femur, proximal tibia bilaterally, and left iliac bone. No new metastatic l esion identified. SL: [id number] Electr onically Signed by Aria Watson on 020 at 1110 Reported and signed by: Beto Watson M.D. CC: Lizzy Aparicio MD; Marjorie Eugene MD Technologist: Vandana Miller, RT(N) [employer]LEACH [employer]ILER FILLER; ... Tr nscrd Date/Time/By: 10/28/2019 (1110) : By: [email or web address] Orig Print D/T: S: 10/28/2019 (1113) PAGE 1 Elsa d Report - CT CHEST [id number] 11:03:00 Name: ANTONIO BAUMAN : 1965 Age/S: 53 / F [address] [place] [address] Unit #: [id number] Loc: [place] [address] Phys: Marilyn Aparicio MD Acct: [id number] Di s Date: Status: REG CLI PHONE #: Exam Date: 10/28/2019916 FAX #: Reason: MALIG NEOPLASM OF UPPER-OUTER QUADRANT EXAMS: CPT CODE: [id number] CT CHEST W/CO NTRAST 50156 CT CHEST, ABDOMEN AND PEL VIS WITH CONTRAST AND MULTIPLANAR REFORMATS 10/28/2019. INDIC ATION: Malignant neoplasm of the upper outer quadrant of the left breast. History of mastectomy. COMPARISON: [facility] chest/abdomen/pelvis CT , abdomen CT 02/25/2019 and 3 prior chest and abdomen CT studies judy ing back to 11/22/2018 and reference in a separate PACS station.. TECHNIQUE: Helical imaging was performed diaphragm through the symphys is with axial and coronal reformations obtained. IV CONTRAST: 100 mL Isovu e-300. GI CONTRAST: 500 of Omnipaque 240 DLP: 380 mGy-cm FINDINGS: CHEST: The lungs are clear. There are no pleural effusions. No distinct pulmonary nodules or masses are seen. Healed left mastectomy with no signs of local recurrence and evidence of external left breast prosthesis. Left axillary and subpectoral lymph node dissection. No sign s of axillary, subpectoral, supraclavicular, hilar, mediastinal or interna l mammary adenopathy. No contralateral breast lesions are seen by CT. Wide spread blastic skeletal metastatic disease is identified involving the ent kaley visualized axial and appendicular skeleton with no visible pathologic fracture. The right-sided chest port terminates at the level of the cavoat rial junction. SOLID ORGANS: There is interval decrease in size an d conspicuity of bilobar hypodense liver lesions with index comparison chi er lesions as described below, - Right liver lobe posterior subcapsular segment 6 (3, 98): 11 mm (previously 13 mm). - Right chi er lobe posterior liver segment 7 (3, 86): 11 mm (previously 14 mm). - Left lateral liver segment 2 (3, 67): 10 mm (previously 12 mm). - Right liver segment 5 (3, 89): 14 mm (previously 14 mm). A previous 7 m m hypodense right liver lesion in segment 6 is almost inconspicuous in the current study. Patent portal circulation. No cirrhotic change. Cholecystectomy without biliary dilatation. The spleen, pancreas, adre nal glands and kidneys show no gross focal abnormality. PAGE 1 Signed Report (CONTINUED) Name: ANTONIO BAUMAN : 1965 Age/S: 53 / F [address] [place] [address] Unit #: [id number] Loc: [place] [address] Phys: Lizzy Aparicio MD Acct: [id number] Dis Date: tus: REG CLI PHONE #: [phone] Exam Date : 10/28/2019916 FAX #: [phone] Reason: MALIG NE OPLASM OF UPPER-OUTER QUADRANT EXAMS: CPT CODE: [id number] CT CHEST W/CONTRAST 03017 <Continued> BOWEL: Nonobstructive bowel gas pattern without pneumatosis or portal venous air. Normal caliber appendix with no thickening or inflammation. Colonic diverticulosis without signs of diverticulitis. PERITONEUM: No free intraperitoneal fluid or air. No adenopathy or peritoneal implants. RETROPERITONEUM: No adenopathy. Severe aortoiliac atherosclerosis without aneurysm. PELVIS: No pelvic adenopathy, mass or free fluid. No rectal lesions. The compressed bladder with no filling defects or diverticula. MUSCULOSKELETAL: Extensive blastic skeletal metastatic disease is again noted involving the visualized axial and appendicular skeleton with no pathologic fracture. IMPRESSION: 1. Overall slight improvement of bilobar liver metastases. 2. Grossly stable extensive blastic skeletal metastases. No pathologic fracture. 3. Healed left mastectomy and left axillary/subpectoral lymphadenectomy. No signs of local recurrence. 4. Atheroscle rosis. 5. Cholecystectomy. 6. Colonic diverticulosis. ____ CT imaging performed at this location utilizes radiation dos e optimization techniques which include one or more of the following: -Automated exposure control -Adjustment of the mA and/or kV accord ing to patient size -Use of iterative reconstruction technique SL: [id number] at 1103 Reported and signed by: Misael Ha M.D. PAGE 2 Signed Report (CONTINUED) Name: ANTONIO BAUMAN : 1965 Age/S: 53 / F [address] [place] [address] Unit #: [id number] Loc: [place] [address] Phys: Magen Aparicio MD Acct: [id number] Dis Date: Status: REG CLI PHONE #: [phone] Exam Date: 10/28/2019916 FAX #: [phone] Reason: MALIG NEOPLASM OF UPPER-OUTER QUADRANT EXAMS: CPT CODE: [id number] CT CHEST W/CONT RAST 44321 <Continued> CC: Lizzy Aparicio MD; Marjorie Eugene MD Technologist:Ko Sun, RT(R)(CT); Ros CTDI: DLP: Trnscb Date/Time: 10/28/2019 (110) t.SDR.ERR2 Orig Print D/T: S: 10/28/2019 (1106) PAGE 3 Signed Report - CT ABD PELVIS [id number] 11:03:00 Name: ANTONIO BAUMAN : 1965 Age/S: 53 / F [address] [place] [address] Unit #: [id number] Loc: [place] [address] Phys: Lizzy Aparicio MD Acct: [id number] Dis Date: Status: REG CLI PHONE #: [phone] Exam Date: 10/28/2019916 FAX #: [phone] Reason: MALIG NEOPLASM OF UPPER-OUTER QUADRANT EXAMS: CPT CODE: [id number] CT ABD PELVIS W/CONT 07378 CT CHEST, ABDOMEN AND PELVIS WITH CONTRAST AND MULTIPLANAR REFORMATS 10/28/2019. INDICATION: Malignant neoplasm of the upper outer quadrant of the left breast. History of mastectomy. COMPARISON: [facility] chest/abdomen/pelvis CT 04/18/2019, abdomen CT 02/25/2019 and 3 prior chest and abdomen CT studies dating back to 11/22/2018 and reference in a separate PACS station.. TECHNIQUE: Helical imaging was performed diaphragm through the symphysis with axial and coronal reformations obtained. IV CONTRAST: 100 mL Isovue- 300. GI CONTRAST: 500 of Omnipaque 240 DLP: 380 mGy-cm FINDINGS: CHEST: The lungs are clear. There are no pleural effusions. No distinct pulmonary nodules or masses are seen. Healed left mastectomy with no signs of local recurrence and evidence of external left breast prosthesis. Left axillary and subpectoral lymph node dissection. No signs of axillary, subpectoral, supraclavicular, hilar, mediastinal or internal mammary adenopathy. No contralateral breast lesions are seen by CT. Wide spread blastic skeletal metastatic disease is identified involving the ent kaley visualized axial and appendicular skeleton with no visible pathologic fracture. The right-sided chest port terminates at the level of the cavoat rial junction. SOLID ORGANS: There is interval decrease in size an d conspicuity of bilobar hypodense liver lesions with index comparison chi er lesions as described below, - Right liver lobe posterior subcapsular segment 6 (3, 98): 11 mm (previously 13 mm). - Right chi er lobe posterior liver segment 7 (3, 86): 11 mm (previously 14 mm). - Left lateral liver segment 2 (3, 67): 10 mm (previously 12 mm). - Right liver segment 5 (3, 89): 14 mm (previously 14 mm). A previous 7 m m hypodense right liver lesion in segment 6 is almost inconspicuous in the current study. Patent portal circulation. No cirrhotic change. Cholecystectomy without biliary dilatation. The spleen, pancreas, adre nal glands and kidneys show no gross focal abnormality. PAGE 1 Signed Report (CONTINUED) Name: ANTONIO BAUMAN [facility] : 1965 Age/S: 53 / F [address] [place] [address] Unit #: [id number] Loc: [place] [address] Phys: Lizzy Aparicio MD Acct: [id number] Dis Date: tus: REG CLI PHONE #: [phone] Exam Date : 10/28/2019 0917 FAX #: [phone] Reason: MALIG NE OPLASM OF UPPER-OUTER QUADRANT EXAMS: CPT CODE: [id number] CT ABD PELVIS W/CONT 15496 <Continued> BOWEL: Nonobstructive bowel gas pattern without pneumatosis or portal venous air. Normal caliber appendix with no thickening or inflammation. Colonic diverticulosis without signs of diverticulitis. PERITONEUM: No free intraperitoneal fluid or air. No adenopathy or peritoneal implants. RETROPERITONEUM: No adenopathy. Severe aortoiliac atherosclerosis without aneurysm. PELVIS: No pelvic adenopathy, mass or free fluid. No rectal lesions. The compressed bladder with no filling defects or diverticula. MUSCULOSKELETAL: Extensive blastic skeletal metastatic disease is again noted involving the visualized axial and appendicular skeleton with no pathologic fracture. IMPRESSION: 1. Overall slight improvement of bilobar liver metastases. 2. Grossly stable extensive blastic skeletal metastases. No pathologic fracture. 3. Healed left mastectomy and left axillary/subpectoral lymphadenectomy. No signs of local recurrence. 4. Atheroscle rosis. 5. Cholecystectomy. 6. Colonic diverticulosis. ____ CT imaging performed at this location utilizes radiation dos e optimization techniques which include one or more of the following: -Automated exposure control -Adjustment of the mA and/or kV accord ing to patient size -Use of iterative reconstruction technique SL: [id number] at 1103 Reported and signed by: Misael Ha M.D. PAGE 2 Signed Report (CONTINUED) Name: ANTONIO BAUMAN [facility] : 1965 Age/S: 53 / F [address] [place], [place] [address]vd Unit #: [id number] Loc: [place] [address] Phys: Magen Aparicio MD Acct: [id number] Dis Date: Status: REG CLI PHONE #: Exam Date: 10/28/2019 09 FAX #: [phone] Reason: MALIG NEOPLASM OF UPPER-OUTER QUADRANT EXAMS: CPT CODE: [id number] CT ABD PELVIS W /CONT 23645 <Continued> CC: Lizzy Aparicio MD; Marjorie Eugene MD Technologist:Ko Sun, RT(R)(CT); Ros CTDI: DLP: Trnscb Date/Time: 10/28/2019 (1103) tJO [email or web address] Orig Print D/T: S: 10/28/2019 (2740) PAGE 3 Signed Report - NM BONE WHOLE [id number] 16:02:00 FAX: Lizzy Small MD [phone] [place]: St: REG FAX: Marjorie Cantor MD [phone] Name: ANTONIO BAUMAN [facility] : 1965 Age/S: 53/F [address] [place] [address] Unit #: [id number] Loc: [place] [address] Phys: Lizzy Aparicio MD Acct: [id number] Dis Date: Status: REG CLI PHONE #: [phone] Exam Date: 06/13/2019 1535 FAX #: [phone] Reason: BREAST CANCER. EXAMS: CPT CODE: [id number] NM BONE WHOLE BODY [id number] Nuclear whole body bone scan: HISTORY: Breast canc er, left upper arm pain. COMPARISON: Bone scan 11/20/2018, left carolina barrett 06/13/2019, abdomen pelvis CT 02/25/2019. TECHNIQUE: Patie nt was injected IV right forearm with 25 mCi 99m technetium HDP. A whole- body bone scan was performed in anterior and posterior projection. Magnif ied spot images of the chest, abdomen and pelvis were performed. FINDINGS: Focal increased uptake is noted in the proximal left humerus were x-ray shows Heterogeneous density suggesting a metastatic lesion. A vague focus of increased uptake is again noted in the proximal right fem ur. Mildly heterogeneous uptake in bilateral ribs is again found cabrales ggesting metastatic disease which is unchanged from prior. Symmetric incr eased uptake in each proximal tibia is likely degenerative in nature. Jeanine ors study described photopenia in the midthoracic spine from radiation tae nge. This photopenic area is still present but less apparent. No other n ew focus of abnormal uptake to suggest additional metastatic disease. Bot h kidneys function normally. IMPRESSION: 1. New f ocus of increased activity proximal left humerus compatible with metasta tic disease. 2. Stable mildly heterogeneous appearance to the ribs and minimal uptake proximal right femur that suggests metastatic disease. SL: [id number] at 1602 Reported and sig kristine by: Pancho Trevino M.D. CC: Lizzy Aparicio MD; Marjorie Eugene MD Technologist: GLADIS GrahamT (N)(CT); ... Trnscrd Date/Time/By: 06/13/2019 (3698) : By: [email or web address].[email or web address] Orig Print D/T : S: 06/13/2019 (7266) PAGE 1 Sig kristine Report - XR HUMERUS 2 + V [id number] 11:48:00 FAX: Lizzy Small MD [phone] [place]: St: REG FAX: Marjorie Cantor MD [phone] Name: ANTONIO BAUMAN [facility] : 1965 Age/S: 53/F [address] [place] [address] Blvd Unit #: [id number] Loc: [place] [address] Phys: Lizzy Aparicio MD Acct: [id number] Dis Date: Status: REG CLI PHONE #: [phone] Exam Date: 06/13/2019 1133 FAX #: [phone] Reason: M79.622, C50.412, BREAST CANCER. EXAMS: CPT CODE: [id number] XR HUMERUS 2 + [place] [address] Study: - XR HUMERUS 2 + V LT 06/13/2019 11:14 AM Patient Name: ANTONIO BAUMAN MR: [id number] : 1965; Age: 53 years y/o Female Ordering Physician: Lizzy Aparicio MD Clinical Indication: M79.622, C50.412, BREAST CANCER. Comparison: October 16, 2018 LEFT HUMERUS, 2 views: No acute fracture or malalignment. Nonspecific sclerotic changes within the left proximal humeral metaphysis and humeral shaft Surgical clips in the left axillary region and lateral chest wall. IMPRESSION: 1. No acute fracture or malalignment. 2. Nonspecific sclerotic changes within the left proximal humerus, similar to prior exam. Differential diagnosis includes metastasis and bone infarcts. This area demonstrated increased radiotracer activity on the November 2018 bone scan. If indicated, repeat bone scan to assess for persistent activity may be performed. SL: [id number] at 1148 Reported and signed by: Kunal Arciniega M.D. CC: Lizzy Aparicio MD; Marjorie Eugene MD Technologist: RT Antonio(R) Trnscrd Date/Time/By: 06/13/2019 (1148) : By: [email or web address] Orig Print D/T: S: 06/13/2019 (0180) PAGE 1 Signed Report CBC W/AUTO [id number] 09:24:00* Test Item Value Reference Range Interpretation Comments WHITE BLOOD CELL (test code = WBC) 2.80 x10 3/uL 4.5-11.0 L RED BLOOD CELL (test code = RBC) 2.43 x10 6/uL 3.54-5.02 L HEMOGLOBIN (test code = HGB) 7.5 g/dL 11.0-15.0 L HEMATOCRIT (test code = HCT) 25.1 % 33.0-45.0 L MEAN CELL VOLUME (test code = MCV) 103.3 fL 81.0-99.0 H MEAN CELL HGB (test code = MCH) 30.9 pg 27.0-33.0 N MEAN CELL HGB CONCETRATION (test code = MCHC) 29.9 g/dL 33.0-37. 0 L RED CELL DISTRIBUTION WIDTH CV (test code = RDW) 19.7 % 11.5- 14.5 H RED CELL DISTRIBUTION WIDTH SD (test code = RDW-SD) 75.2 fL 37 .0-54.0 H PLATELET COUNT (test code = PLT) 230 x10 3/uL 150-400 N MEAN PLATELET VOLUME (test code = MPV) 12.6 fL 7.0-9.0 H NEUTROPHIL % (test code = NT%) 52.5 % 56.0-77.0 L IMMATURE GRANULOCYTE % (test code = IG%) 3.6 % 0.0-2.0 H LYMPHOCYTE % (test code = LY%) 35.0 % 14.0-32.0 H MONOCYTE % (test code = MO%) 8.2 % 4.8-9.0 N EOSINOPHIL % (test code = EO%) 0.0 % 0.3-3.7 L BASOPHIL % (test code = BA%) 0.7 % 0.0-2.0 N NUCLEATED RBC % (test code = NRBC%) 6.8 % 0-0 H NEUTROPHIL # (test code = NT#) 1.47 x10 3/uL 2.0-7.6 L IMMATURE GRANULOCYTE # (test code = IG#) 0.10 x10 3/uL 0.00-0.03 H LYMPHOCYTE # (test code = LY#) 0.98 x10 3/uL 1.0-3.8 L MONOCYTE # (test code = MO#) 0.23 x10 3/uL 0.1-0.8 N EOSINOPHIL # (test code = EO#) 0.00 x10 3/uL 0.0-0.2 N BASOPHIL # (test code = BA#) 0.02 x10 3/uL 0.0-0.2 N NUCLEATED RBC # (test code = NRBC#) 0.19 x10 3/uL 0.0-0.1 H MANUAL DIFF REQUIRED (test code = MDIFF) NO BASIC METABOLIC [id number] 07:48:00* Test Item Value Reference Range Interpretation Comments SODIUM (test code = NA) 141 mEq/L 134-147 N POTASSIUM (test code = K) 4.2 mEq/L 3.4-5.0 N CHLORIDE (test code = CL) 115 mEq/L 100-108 H CARBON DIOXIDE (test code = CO2) 20 mEq/L 21-33 L ANION GAP (test code = GAP) 10 0-20 N GLUCOSE (test code = GLU) 198 mg/dL 70-110 H BLOOD UREA NITROGEN (test code = BUN) 12 mg/dL 7-18 N GLOMERULAR FILTRATION RATE (test code = GFR) 87.5 90-95 L Units of measure = ml/min/1.73 m2 CREATININE (test code = CREAT) 0.7 mg/dL 0.6-1.3 N CALCIUM (test code = CA) 8.1 mg/dL 8.0-10.5 N CBC W/AUTO [id number] 06:07:00* Test Item Value Reference Range Interpretation Comments WHITE BLOOD CELL (test code = WBC) 2.41 x10 3/uL 4.5-11.0 L RED BLOOD CELL (test code = RBC) 2.29 x10 6/uL 3.54-5.02 L HEMOGLOBIN (test code = HGB) 7.1 g/dL 11.0-15.0 L HEMATOCRIT (test code = HCT) 23.5 % 33.0-45.0 L MEAN CELL VOLUME (test code = MCV) 102.6 fL 81.0-99.0 H MEAN CELL HGB (test code = MCH) 31.0 pg 27.0-33.0 N MEAN CELL HGB CONCETRATION (test code = MCHC) 30.2 g/dL 33.0-37. 0 L RED CELL DISTRIBUTION WIDTH CV (test code = RDW) 19.8 % 11.5- 14.5 H RED CELL DISTRIBUTION WIDTH SD (test code = RDW-SD) 74.4 fL 37 .0-54.0 H PLATELET COUNT (test code = PLT) 171 x10 3/uL 150-400 N MEAN PLATELET VOLUME (test code = MPV) 11.3 fL 7.0-9.0 H MANUAL DIFF REQUIRED (test code = MDIFF) YES WBC [id number] 06:07:00* Test Item Value Reference Range Interpretation Comments SEGMENTED NEUTROPHILS (test code = SEG) 34.5 % 37-69 L LYMPHOCYTE (test code = LYMPH) 46.4 % 23-55 N MONOCYTE (test code = MON) 15.5 % 0-10 H BASOPHIL (test code = BASO) 0.9 % 0.0-2.0 N MYELOCYTE (test code = MYELO) 0.9 % 0.0-0.0 H PROMYELOCYTE (test code = PROM) 1.8 % 0-0 H NUCLEATED RED BLOOD CELL (test code = NRBC) 10.9 % POLYCHROMASIA (test code = POLC) 1+ POIKILOCYTOSIS (test code = POIK) 1+ ANISOCYTOSIS (test code = ANISO) 2+ MICROCYTOSIS (test code = MICR) 1+ MACROCYTOSIS (test code = MACR) 1+ TEAR DROP CELLS (test code = TEAR) FEW ELLIPTOCYTES (test code = ELL) FEW SCHISTOCYTES (test code = JING) FEW PLATELET ESTIMATE (test code = PLTEST) Adequate THOUSAND ADEQUATE PLATELET MORPHOLOGY (test code = PLTMORPH) LARGE PLATELETS GIANT PLTS SEEN CBC W/AUTO [id number] 06:01:00* Test Item Value Reference Range Interpretation Comments WHITE BLOOD CELL (test code = WBC) 2.41 x10 3/uL 4.5-11.0 L RED BLOOD CELL (test code = RBC) 2.29 x10 6/uL 3.54-5.02 L HEMOGLOBIN (test code = HGB) 7.1 g/dL 11.0-15.0 L HEMATOCRIT (test code = HCT) 23.5 % 33.0-45.0 L MEAN CELL VOLUME (test code = MCV) 102.6 fL 81.0-99.0 H MEAN CELL HGB (test code = MCH) 31.0 pg 27.0-33.0 N MEAN CELL HGB CONCETRATION (test code = MCHC) 30.2 g/dL 33.0-37. 0 L RED CELL DISTRIBUTION WIDTH CV (test code = RDW) 19.8 % 11.5- 14.5 H RED CELL DISTRIBUTION WIDTH SD (test code = RDW-SD) 74.4 fL 37 .0-54.0 H PLATELET COUNT (test code = PLT) 171 x10 3/uL 150-400 N MEAN PLATELET VOLUME (test code = MPV) 11.3 fL 7.0-9.0 H MANUAL DIFF REQUIRED (test code = MDIFF) YES WBC [id number] 06:01:00* Test Item Value Reference Range Interpretation Comments ANISOCYTOSIS (test code = ANISO) PLATELET ESTIMATE (test code = PLTEST) THOUSAND ADEQUATE CBC W/AUTO [id number] 06:01:00* Test Item Value Reference Range Interpretation Comments WHITE BLOOD CELL (test code = WBC) 2.41 x10 3/uL 4.5-11.0 L RED BLOOD CELL (test code = RBC) 2.29 x10 6/uL 3.54-5.02 L HEMOGLOBIN (test code = HGB) 7.1 g/dL 11.0-15.0 L HEMATOCRIT (test code = HCT) 23.5 % 33.0-45.0 L MEAN CELL VOLUME (test code = MCV) 102.6 fL 81.0-99.0 H MEAN CELL HGB (test code = MCH) 31.0 pg 27.0-33.0 N MEAN CELL HGB CONCETRATION (test code = MCHC) 30.2 g/dL 33.0-37. 0 L RED CELL DISTRIBUTION WIDTH CV (test code = RDW) 19.8 % 11.5- 14.5 H RED CELL DISTRIBUTION WIDTH SD (test code = RDW-SD) 74.4 fL 37 .0-54.0 H PLATELET COUNT (test code = PLT) 171 x10 3/uL 150-400 N MEAN PLATELET VOLUME (test code = MPV) 11.3 fL 7.0-9.0 H MANUAL DIFF REQUIRED (test code = MDIFF) YES WBC [id number] 06:01:00* Test Item Value Reference Range Interpretation Comments ANISOCYTOSIS (test code = ANISO) PLATELET ESTIMATE (test code = PLTEST) THOUSAND ADEQUATE CBC W/AUTO [id number] 05:41:00* Test Item Value Reference Range Interpretation Comments WHITE BLOOD CELL (test code = WBC) 2.41 x10 3/uL 4.5-11.0 L RED BLOOD CELL (test code = RBC) 2.29 x10 6/uL 3.54-5.02 L HEMOGLOBIN (test code = HGB) 7.1 g/dL 11.0-15.0 L HEMATOCRIT (test code = HCT) 23.5 % 33.0-45.0 L MEAN CELL VOLUME (test code = MCV) 102.6 fL 81.0-99.0 H MEAN CELL HGB (test code = MCH) 31.0 pg 27.0-33.0 N MEAN CELL HGB CONCETRATION (test code = MCHC) 30.2 g/dL 33.0-37. 0 L RED CELL DISTRIBUTION WIDTH CV (test code = RDW) 19.8 % 11.5- 14.5 H RED CELL DISTRIBUTION WIDTH SD (test code = RDW-SD) 74.4 fL 37 .0-54.0 H PLATELET COUNT (test code = PLT) 171 x10 3/uL 150-400 N MEAN PLATELET VOLUME (test code = MPV) 11.3 fL 7.0-9.0 H NEUTROPHIL % (test code = NT%) % 56.0-77.0 LYMPHOCYTE % (test code = LY%) % 14.0-32.0 NEUTROPHIL # (test code = NT#) x10 3/uL 2.0-7.6 LYMPHOCYTE # (test code = LY#) x10 3/uL 1.0-3.8 MANUAL DIFF REQUIRED (test code = MDIFF) BASIC METABOLIC [id number] 05:05:00* Test Item Value Reference Range Interpretation Comments SODIUM (test code = NA) 142 mEq/L 134-147 N POTASSIUM (test code = K) 4.4 mEq/L 3.4-5.0 CHLORIDE (test code = CL) 114 mEq/L 100-108 H CARBON DIOXIDE (test code = CO2) 22 mEq/L 21-33 N ANION GAP (test code = GAP) 10 0-20 N GLUCOSE (test code = GLU) 66 mg/dL 70-110 L BLOOD UREA NITROGEN (test code = BUN) 11 mg/dL 7-18 GLOMERULAR FILTRATION RATE (test code = GFR) 104.6 90-95 H Units of measure = ml/min/1.73 m2 CREATININE (test code = CREAT) 0.6 mg/dL 0.6-1.3 CALCIUM (test code = CA) 7.6 mg/dL 8.0-10.5 L RESPIRATORY VIRUS PANEL [id number] 18:34:00* Test Item Value Reference Range Interpretation Comments RSV A PCR (test code = RSV A) Negative Negative RSV B PCR (test code = RSV B) Negative Negative INFLUENZA A (test code = FLUAPCR) Negative Negative INFLUENZA A SUBTYPE H1 (test code = FLUAH1) Negative Negative INFLUENZA A SUBTYPE H3 (test code = FLUAH3) Negative Negative INFLUENZA B (test code = FLUBPCR) Negative Negative PARAINFLUENZA TYPE 1 PCR (test code = PIF1) Negative Negative PARAINFLUENZA TYPE 2 PCR (test code = PIF2) Negative Negative PARAINFLUENZA TYPE 3 PCR (test code = PIF3) Negative Negative PARAINFLUENZA TYPE 4 PCR (test code = PIF4) Negative Negative RHINOVIRUS PCR (test code = RHINO) Negative Negative METAPNEUMOVIRUS PCR (test code = METAPNEU) Negative Negative ADENOVIRUS PCR (test code = ADENOPCR) Negative Negative BORDETELLA PERTUSSIS DNA PCR (test code = BORDPERDNA) Negative Negative B PARAPERTUSSIS BY PCR (test code = BPARAPCR) Negative Negative BORDETELLA HOLMESII (test code = BORDHOLM) Negative Negative Testing was performed using nucleic acid amplificationincluding Bordetella parapertussis/brochiseptica, Bordetella holmesii, and Bordetella pertussis. COMPLEMENT BETA C1 (test code = COMBC1) RVP Comment Comment Testing was performed using nucleic acid amplificationincluding influenza A, influenza A H1, influenza A H3,influenza B, RSV-A, RSV-B, Adenovirus, HumanMetapneumovirus, Parainfluenza 1,2,3 and 4, Rhinovirus, Bordetella parapertussis/brochiseptica, Bordetella holmesii, and Bordetella pertussis. - CT ABD PELVIS [id number] 18:22:00 Name: ANTONIO BAUMAN [facility] : 1965 Age/S: 53 / F [address] [place] [address] Unit #: [id number] Loc: [place] [address] Phys: Clarice Briggs HYDRAULIC ROCKBREAKER OPERATOR Acct: [id number] Dis Date: Status: ADM IN PHONE #: [phone] Exam Date: 02/25/2019 175 FAX #: [phone] Reason: Abdominal pain and diarrhea EXAMS: CPT CODE: [id number] CT ABD PELVIS W/CONT 71258 Clinical Indication: Abdominal pain and diarrhea Comparison: None TECHNIQUE: Helical imaging was performed after injection of IV contrast, from the lung base through the symphysis with multiplanar reformations obtained. IV CONTRAST: 100 mL of Isovue-300 GI CONTRAST: Oral contrast was administered. DLP: 253 mGy-cm FINDINGS: CT ABDOMEN AND PELVIS WITH CONTRAST: LUNG BASE: The lung bases are clear. LIVER: The liver contains multiple hypodense lesions scattered throughout the liver measuring up to 1.5 cm. The portal vein is normal in caliber. BILIARY TREE: The common bile duct is normal in caliber without evidence of filling defects. GALLBLADDER: The gallbladder has been surgically resected. PANCREAS: The pancreas is unremarkable. The pancreatic duct is normal in caliber. SPLEEN: The spleen is normal in size and there are no parenchymal abnormalities. ADRENALS: The right adrenal gland is unremarkable. The left adrenal g land is unremarkable. KIDNEYS: The kidneys demonstrates normal con trast enhancement. There are no masses. There is no evidence of renal or u reteral calculi. There is no evidence of hydronephrosis. BOW EL: The visualized portion of the esophagus is unremarkable. The stomach is unremarkable. A small hiatal hernia is present. The small bowel is no rmal in caliber and there is no evidence of masses or obstruction. The col on is normal in caliber without any masses. APPENDIX: The appendix is unremarkable. PAGE 1 Signed Report (CONTINUED) Name: ANTONIO BAUMAN : 1965 Age/S: 53 / F [address] [place] [address] Unit #: [id number] Loc: [place] [address] Phys: Clarice Briggs HYDRAULIC ROCKBREAKER OPERATOR Acct: [id number] Dis Date: Status: ADM IN PHONE #: [phone] Exam Date: 02/25/20191750 FAX #: [phone] Reason: Abdominal pain and diarrhea EXAMS: CPT CODE: [id number] CT ABD PELVIS W/CONT 15154 < Continued> PELVIS: There are no pelvic masses. The urinary bladder is unremarkable. The uterus and ovaries are unremarkable. PERITONEUM: There is no evidence for free intraperitoneal fluid or air. SOFT TISSUES: The soft tissues are unremarkable. There is no evidence of masses or hernias. LYMPH NODES: There is no evidence of mesenteric, retroperitoneal, or inguinal lymphadenopathy. VASCULATURE: The abdominal aorta is normal in caliber. The branches of the abdominal aorta are widely patent. MUSCULOSKELETAL: Sclerotic lesions are seen throughout the pelvis, femurs, ribs and spine.. IMPRESSION: 1. Numerous hypodense lesions throughout the liver. Finding is suspicious for metastatic disease. Recommend MRI abdomen for further evaluation. 2. Extensive sclerotic lesions throughout the bones. Finding is consistent with metastatic disease. 3. A small hiatal hernia. 4. Cholecystectomy. 5. Normal appendix. SL: LANVU-H at 1822 Reported and signed by: Musa Victoria M.D. CC: Carlos Byrd MD; Clarice Briggs HYDRAULIC ROCKBREAKER OPERATOR; Marjorie Eugene MD Technologist:Marzena Lawrence, RT(R)(CT) CTDI: DLP: Trnscb Date/Time: 02/25/2019 (1821) t.SDR.LNV Orig Print D/T: S: 02/25/2019 (1824) PAGE 2 Signed Report UA RFLX MICR CULT IF [id number] 14:29:00* Test Item Value Reference Range Interpretation Comments UA COLOR (test code = COLU) BAL YEL/STRAW A UA APPEARANCE (test code = APPU) SL CLOUDY CLEAR UA GLUCOSE DIPSTICK (test code = DGLUU) NEGATIVE NEGATIVE UA BILIRUBIN DIPSTICK (test code = BILU) NEGATIVE NEGATIVE UA KETONE DIPSTICK (test code = KETU) TRACE NEGATIVE A UA SPECIFIC GRAVITY (test code = SGU) 1.024 1.005-1.030 N UA BLOOD DIPSTICK (test code = SARAH) NEGATIVE NEGATIVE UA PH DIPSTICK (test code = LA) 5.0 5.0-7.0 N UA PROTEIN DIPSTICK (test code = PROU) NEGATIVE NEGATIVE UA UROBILINIOGEN DIPSTICK (test code = URO) 0.2 mg/dL 0.2-1.0 UA NITRITE DIPSTICK (test code = KENZIE) NEGATIVE NEGATIVE UA LEUKOCYTE ESTERASE DIPSTICK (test code = LEUU) NEGATIVE NEGA TIVE UA WBC (test code = WBCU) 4-9 WBC/HPF 0-3 A UA RBC (test code = RBCU) 4-10 RBC/HPF 0-3 UA WBC NO REFLEX (test code = WBCUCL) 4-9 WBC/HPF 0-3 A UA BACTERIA (test code = BACU) TRACE /HPF NONE SEEN UA SQUAMOUS CELLS (test code = SQU) 0-5 /HPF NONE SEEN UA HYALINE CAST (test code = HYALU) 6-10 /LPF NONE SEEN UA MUCUS (test code = MUCU) 4+ /LPF NONE SEEN A Indication for culture: Sev. Sepsis-no other srcSpecimen Description: CLEAN CATCHCOMPREHENSIVE METABOLIC [id number] 14:27:00* Test Item Value Reference Range Interpretation Comments SODIUM (test code = NA) 138 mEq/L 134-147 N POTASSIUM (test code = K) 3.4 mEq/L 3.4-5.0 N CHLORIDE (test code = CL) 107 mEq/L 100-108 N CARBON DIOXIDE (test code = CO2) 27 mEq/L 21-33 N ANION GAP (test code = GAP) 7 0-20 N GLUCOSE (test code = GLU) 100 mg/dL 70-110 N BLOOD UREA NITROGEN (test code = BUN) 15 mg/dL 7-18 N GLOMERULAR FILTRATION RATE (test code = GFR) 65.5 90-95 L Units of measure = ml/min/1.73 m2 CREATININE (test code = CREAT) 0.9 mg/dL 0.6-1.3 N TOTAL PROTEIN (test code = PROT) 6.9 g/dL 6.4-8.2 N ALBUMIN (test code = ALB) 3.50 g/dL 3.4-5.0 N CALCIUM (test code = CA) 8.8 mg/dL 8.0-10.5 N BILIRUBIN TOTAL (test code = BILT) 0.6 MG/DL <1.5 N SGOT/AST (test code = AST) 27 IUnit/L 15-37 N SGPT/ALT (test code = ALT) 18 IUnit/L 15-65 N ALKALINE PHOSPHATASE TOTAL (test code = ALKP) 67 IUnit/L 20-125 N COMPREHENSIVE METABOLIC [id number] 14:24:00* Test Item Value Reference Range Interpretation Comments SODIUM (test code = NA) 138 mEq/L 134-147 N POTASSIUM (test code = K) 3.4 mEq/L 3.4-5.0 N CHLORIDE (test code = CL) 107 mEq/L 100-108 N CARBON DIOXIDE (test code = CO2) 27 mEq/L 21-33 N ANION GAP (test code = GAP) 7 0-20 N GLUCOSE (test code = GLU) 100 mg/dL 70-110 N BLOOD UREA NITROGEN (test code = BUN) 15 mg/dL 7-18 N GLOMERULAR FILTRATION RATE (test code = GFR) 90-95 CREATININE (test code = CREAT) mg/dL 0.6-1.3 TOTAL PROTEIN (test code = PROT) g/dL 6.4-8.2 ALBUMIN (test code = ALB) g/dL 3.4-5.0 CALCIUM (test code = CA) 8.8 mg/dL 8.0-10.5 N BILIRUBIN TOTAL (test code = BILT) MG/DL <1.5 SGOT/AST (test code = AST) IUnit/L 15-37 SGPT/ALT (test code = ALT) IUnit/L 15-65 ALKALINE PHOSPHATASE TOTAL (test code = ALKP) IUnit/L 20-125 CBC W/AUTO [id number] 14:17:00* Test Item Value Reference Range Interpretation Comments WHITE BLOOD CELL (test code = WBC) 3.74 x10 3/uL 4.5-11.0 L RED BLOOD CELL (test code = RBC) 3.16 x10 6/uL 3.54-5.02 L HEMOGLOBIN (test code = HGB) 9.8 g/dL 11.0-15.0 L HEMATOCRIT (test code = HCT) 31.8 % 33.0-45.0 L MEAN CELL VOLUME (test code = MCV) 100.6 fL 81.0-99.0 H MEAN CELL HGB (test code = MCH) 31.0 pg 27.0-33.0 N MEAN CELL HGB CONCETRATION (test code = MCHC) 30.8 g/dL 33.0-37. 0 L RED CELL DISTRIBUTION WIDTH CV (test code = RDW) 19.8 % 11.5- 14.5 H RED CELL DISTRIBUTION WIDTH SD (test code = RDW-SD) 71.2 fL 37 .0-54.0 H PLATELET COUNT (test code = PLT) 247 x10 3/uL 150-400 N MEAN PLATELET VOLUME (test code = MPV) 12.1 fL 7.0-9.0 H NEUTROPHIL % (test code = NT%) 38.3 % 56.0-77.0 L IMMATURE GRANULOCYTE % (test code = IG%) 1.6 % 0.0-2.0 N LYMPHOCYTE % (test code = LY%) 42.2 % 14.0-32.0 H MONOCYTE % (test code = MO%) 17.1 % 4.8-9.0 H EOSINOPHIL % (test code = EO%) 0.0 % 0.3-3.7 L BASOPHIL % (test code = BA%) 0.8 % 0.0-2.0 N NUCLEATED RBC % (test code = NRBC%) 7.0 % 0-0 H NEUTROPHIL # (test code = NT#) 1.43 x10 3/uL 2.0-7.6 L IMMATURE GRANULOCYTE # (test code = IG#) 0.06 x10 3/uL 0.00-0.03 H LYMPHOCYTE # (test code = LY#) 1.58 x10 3/uL 1.0-3.8 N MONOCYTE # (test code = MO#) 0.64 x10 3/uL 0.1-0.8 N EOSINOPHIL # (test code = EO#) 0.00 x10 3/uL 0.0-0.2 N BASOPHIL # (test code = BA#) 0.03 x10 3/uL 0.0-0.2 N NUCLEATED RBC # (test code = NRBC#) 0.26 x10 3/uL 0.0-0.1 H MANUAL DIFF REQUIRED (test code = MDIFF) NO TROPONIN-I [id number] 13:54:00* Test Item Value Reference Range Interpretation Comments TROPONIN-I RAPID (test code = TROPIRAP) 0.02 ng/mL 0.00-0.08 N Performed by certified carbon paper machine operator at [facility] Negative: <= 0.08 Positive: >= 0.09An elevated troponin value alone is not sufficient todiagnose a myocardial infarction. Rather, the patient sclinical presentation (history, physical exam) and ECGshould be used in conjunction with troponin in thediagnostic evaluation of suspected myocardial infarction. Aserial sampling protocol is recommended to facilitate the identification of temporal changes in troponin levels characteristic of OR. LACTIC ACID [id number] 13:48:00* Test Item Value Reference Range Interpretation Comments LACTIC ACID POC (test code = LACTP) 1.8 MMOL/L 0.90-1.70 H Performed by certified carbon paper machine operator at [facility] - XR CHEST 1 [id number] 13:30:00 FAX: Maycol Lawton MD [phone] [place]: St: REG FAX: Marjorie Cantor MD [phone] Name: ANTONIO BAUMAN [facility] : 1965 Age/S: 53/F [address] [place] [address] Unit #: [id number] Loc: [place] [address] Phys: Maycol Lawton MD Acct: [id number] Dis Date: Status: REG ER PHONE #: [phone] Exam Date: 02/25/2019 1325 FAX #: [phone] Reason: tachycardia / diarrhea / ?sepsis EXAMS: CPT CODE: [id number] XR CHEST 1 V 07584 Exam: Chest radiograph frontal view Indication: 53-year-old female with tachycardia, diarrhea. Possible sepsis. Comparison: Chest radiograph from view on 05/20/2018. Technique: Chest radiograph frontal view Findings: The cardiomediastinal silhouette is within normal limits. There is a rig ht chest port with the tip projecting over the upper aspect of the right a trium. There are surgical clips projecting over the left breast and left axilla. There are surgical clips projecting of the gallbladder fossa. No focal airspace consolidation. No pleural effusion. No pneumothorax. No acute osseous abnormality. Impression: No acute cardiop ulmonary disease. SL: [id number] at 1330 Reported and signed by: Parag Scott M.D. CC: Maycol Lawton MD; Marjorie Eugene MD Technologist: Mick Jolly, RT(R); Hanane AmezcuaRT(R) Trnutrd Date/Time/By: 019 (1330) : By: [email or web address] Orig Print D/T: S: 02/25/2019 (9621) PAGE 1 Signed Report - NM BONE WHOLE [id number] 15:25:00 FAX: Lizzy Small MD [phone] [place]: St: REG FAX: Marjorie Cantor MD [phone] Name: ANTONIO BAUMAN [facility] : 1965 Age/S: 53/F [address] [place] [address] Unit #: [id number] Loc: [place] [address] Phys: Lizzy Aparicio MD Acct: [id number] Dis Date: Status: REG CLI PHONE #: [phone] Exam Date: 11/20/2018 1104 FAX #: [phone] Reason: C50.412 BREAST CANCER EXAMS: CPT CODE: [id number] [place] BONE WHOLE BODY 77948 WHOLE BODY BONE SCAN: HISTORY: Breast cancer. COMPARISON EXAMS: Whole-body bone scan of June 2018. Left humerus series of 10/16/2018. Previous MRI of the lumbar spine of June 2018. TECHNIQUE: Following intravenous injection of 25 mCi 99m technetium HDP, anterior and posterior whole-body images were obtained after 2 hour d elay. In addition, multiple anterior and posterior spot planar views were obtained of the pelvis and thorax. FINDINGS: There has been marked improvement in the appearance of the bone scan since June 2018. Only mil dly heterogeneous activity is identified in several of the ribs. The patho logical uptake in multiple lumbar vertebrae is no longer identified. There is a photopenic region of uptake in the midthoracic spine which may repre sent a region of previous radiation treatment. Mildly asymme trical activity is present in the proximal right femoral neck, with decrea se in intensity compared to the prior exam. No new regions of pathological uptake. IMPRESSION: 1. Marked improvement in the appear ance of the bone scan compatible with treatment response of multiple ske letal metastatic lesions. 2. Only mildly heterogeneous activity is ident ified in the ribs and proximal right femur. 3. Region of photope ferd uptake in the midthoracic region may represent postradiation changes . 4. No new abnormalities. SL:01 E lectronically Signed by Aria Zambrano on 11/20/2018 at 1525 Reported and signed by: Anders Zambrano M.D. CC: Lizzy Aparicio MD; Marjorie Eugene MD Technologist: JEANMARIE Graham (N)(CT); ... Tr [facility] Date/Time/By: 11/20/2018 (9194) : By: Caity/Caity Orig Print D/T: S: 11/20/2018 (7449) PAGE 1 Elsa d Report - XR HUMERUS 2 + V [id number] 12:34:00 FAX: Lizzy Small MD [phone] [place]: St: PRE FAX: Marjorie Cantor MD [phone] Name: ANTONIO BAUMAN [facility] : 1965 Age/S: 52/F [address] [place] [address] Blvd Unit #: [id number] Loc: [place] [address] Phys: Lizzy Aparicio MD Acct: [id number] Dis Date: Status: PRE CLI PHONE #: [phone] Exam Date: 10/16/2018 1223 FAX #: [phone] Reason: L HUMERUS PAIN, BREAS T CANCER METS TO BONE EXAMS: CPT CODE: [id number] XR HUMERUS 2 + [place] [address] Left humerus radiograph October 16, 2018. COMPARISON: None. CLINICAL HISTORY: 52-year-old female with left arm pain, hi story of metastatic breast cancer. Discussion: AP and lateral view of the left humerus submitted on 2 radiographs. Multiple surgical clips are seen in the chest wall. Diffuse sclerosis is seen in the left humeral pro ximal metaphysis. No sclerotic lesions are seen. IMPRESSION: Dif fuse sclerotic change throughout the proximal left humeral metaphysis. at 1234 Reported and signed by: Chana Sweeney M.D. CC: Lizzy Aparicio MD; Marjorie Eugene MD Technologist: Hanane AmezcuaRT(R) Trnscrd Date/Time/By: (0490) : By: Madan Orig Print D/T: S: 10/16/2018 (6119) PAGE 1 Signed Report - DUP VEIN [id number] 15:02:00 Name: ANTONIO BAUMAN [facility] : 1965 Age/S: 52 / F [address] [place] [address] Blvd Unit #: [id number] Loc: [place] [address] Phys: Lizzy Aparicio MD Acct: [id number] Dis Date: Status: REG CLI PHONE #: [phone] Exam Date: 08/23/2018 1338 FAX #: [phone] Reason: C50.412 BREAST CANCER EXAMS: CPT CODE: [id number] DUP VEIN MAXIMINO 66999 PROCEDURE: BILATERAL LOWER EXTREMITY VENOUS ULTRASOUND INDICATION: Leg edema. Previous history of breast cancer COMPARISON: None. TECHNIQUE: Sonographic evaluation of the bilateral lower extremity veins was per formed using high resolution B-mode, pulse and color Doppler imaging. FINDINGS: RIGHT: The common femoral, femoral, pop liteal and visualized calf veins are patent. Normal venous waveforms. The saphenofemoral junction is unremarkable. LEFT: The com mon femoral, femoral, popliteal and visualized calf veins are patent. Norm al venous waveforms. The saphenofemoral junction is unremarkable. IMPRESSION: No deep venous thrombosis. SL:0 1 at 1502 Rep orted and signed by: Med Escalante M.D. CC: Lizzy Aparicio MD; Marjorie Eugene MD Technologist: Vinnie Sanders RDMS (AB) (OB) Trnscb Date/Time: 08/23/2018 (8662) Juan R Orig Print D/T: S: 08/23/2018 (7834) Probe: PAGE 1 Signed Report - XR L-SPINE 2/3 [id number] 10:15:00 FAX: Lizzy Small MD [phone] [place]: St: REG FAX: Marjorie Cantor MD [phone] Name: ANTONIO BAUMAN EVER [facility] : 1965 Age/S: 52/F [address] [place] [address] Unit #: [id number] Loc: [facility] [address] Phys: Lizzy Aparicio MD Acct: [id number] Dis Date: Status: REG CLI PHONE #: [phone] Exam Date: 06/26/2018 0835 FAX #: [phone] Reason: M54.5 PERSISTENT LOW BACK PAIN EXAMS: CPT CODE: [id number] XR L-SPINE 2/3 VIEWS 49355 LUMBAR SPINE, 3VIEWS,06/26/2018 : COMPARISON: MRI elyssa mbar spine dated June 26, 2018 and bone scan dated June 19, 2018 CLINICAL HISTORY:M54.5 PERSISTENT LOW BACK PAIN FINDINGS: There are 5 lumbar type vertebral bodies. The lumbar s pine was in anatomic alignment. No significant disc space narrowin g noted. No acute fracture or dislocation is seen in the lumbar sp ine. However, there is minimal wedging of the inferior endplate of T11. There is no bony retropulsion. Diffuse osteoblastic f oci are seen involving every lumbar vertebra as well as portions of the sa jose. Findings are consistent with diffuse osteoblastic metastases. Surgical clips noted in the right upper quadrant of the abdomen. 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 at 1015 Reported and signed by: Alexandra Ospina M.D. CC: Lizzy Aparicio MD; Marjorie Eugene MD Technologist: RT Antonio(R) Trnscrd Date/Time/By: 06/26/2018 (1015) : By: [email or web address] Orig Print D/T: S: (0006) PAGE 1 Signed Rep ort - XR PELVIS 1/2 [id number] 09:46:00 FAX: Lizzy Small MD [phone] [place]: St: REG FAX: Marjorie Cantor MD [phone] Name: ANTONIO BAUMAN [facility] : 1965 Age/S: 52/F [address] [place] [address] Unit #: [id number] Loc: [facility] [place] [address] Phys: Lizzy Aparicio MD Acct: [id number] Dis Date: Status: REG CLI PHONE #: [phone] Exam Date: 06/26/2018 0836 FAX #: [phone] Reason: M54.5 PERSISTENT LOW BACK PAIN EXAMS: CPT CODE: [id number] XR PELVIS 1/2 VIEWS 64184 PELVIS AP VIEW 06/26/2018 COMPARISON: Bone scan date d June 19, 2018 CLINICAL HISTORY: M54.5 PERSISTENT LOW BACK PAIN. HISTORY OF BREAST CANCER. FINDINGS: No acute fracture or di slocation is noted. Focal sclerotic area is seen in the medial asp ect of the right iliac wing, adjacent to the right SI joint. There are al so focal sclerotic areas in the left lateral iliac wing,the proximal right femoral neck and right inferior pubic ramus No bony destru ction is seen. CONCLUSION: Multiple sclerotic/blastic foci as desc ribed, suspicious for osteoblastic metastases. at 0946 Report ed and signed by: Oziel Ospina M.D. CC: Lizzy Aparicio MD; Marjorie Eugene MD Technologist: Apurva Burton RT(R) Trnscrd Date/Time/By: 06/26/2018 (0963) : By: [email or web address] Orig Print D/T: S: 06/26/2018 (9681) PAGE 1 Signed Report - MRI L-SPINE W WO [id number] 09:10:00 FAX: Lizzy Small MD [phone] [place]: St: REG FAX: Marjorie Cantor MD [phone] Name: ANTONIO BAUMAN [facility] : 1965 Age/S: 52/F [address] [place] [address] Unit #: [id number] Loc: [place] [address] Phys: Lizzy Aparicio MD Acct: [id number] Dis Date: Status: REG CLI PHONE #: [phone] Exam Date: 06/26/2018 08 FAX #: [phone] Reason: C50.412 BREAST CA EXAMS: CPT CODE: [id number] MRI L-SPINE W WO CON 89491 Study: - MRI L-SPINE W WO CON 06/26/2018 7:08 AM Patient Name: ANTONIO BAUMAN MR: [id number] : 1965; Age: 52 years y/o Female Ordering Physician: Lizzy Aparicio MD Clinical Indication: C50.412 BREAST CA Comparison: None TECHNIQUE: Multiplanar T1, T2, and STIR weighted noncontrast MRI of the lumbar spine was performed on the 1.5 Brooke magnet. Post-contrast sequences were also obtained. Contrast: Dotarem 13 mL FINDINGS: ALIGNMENT AND GENERAL ASSESSMENT: Five lumbar type ve rtebral bodies are assumed for purpose of this dictation with conus medull marvin termination at L1-L2. Heterogeneous bone marrow signal is seen throug hout the lower thoracic, lumbar, and sacral spines. Diffuse T1 hyp ointensity and enhancement are noted within the T10-L4 vertebral bodies. T1 hyperintensity with multiple scattered foci of T1 hypointensity and enh ancement are noted within the L5 vertebral body and sacrum No fractu re or significant height loss No spinal canal stenosis. DISC SPACES: L1-L2: No significant disc protrusion, spinal canal narro wing, or neural foraminal narrowing. L2-L3: No significant d isc protrusion, spinal canal narrowing, or neural foraminal narrowing. L3-L4: No significant disc protrusion, spinal canal narrowing, or neural foraminal narrowing. L4-L5: Symmetric disc bulge and ever ular fissure without foraminal or canal stenosis. PAGE 1 Signed Report (CONTINUED) FAX: Marilyn Small MD [phone] [place]: St: REG FAX: Marjorie Cantor MD [phone] Name: MITULANTONIO EVER [facility] : 1965 Age/S: 52/F [address] [place] [address] Unit #: [id number] Loc: [place] [address] Phys: Lizzy Aparicio MD Acct: [id number] Dis Date: Status: REG CLI PHONE #: [phone] Exam Date: 06/26/2018 0807 FAX #: [phone] Reason: C50.412 BREAST CA EXAMS: CPT CODE: [id number] MRI L-SPINE W WO CON 78181 <Continued> L5-S1: Symmetric disc bulge and annular fissure without foraminal or canal stenosis. IMPRESSION: Diffuse osseous metastases. No spinal cord compression, epidural dise ase, or pathologic fracture. SL: [id number] at 091 0 Reported and signed by: Kunal Arciniega M.D. CC: Lizzy Aparicio MD; Marjorie Eugene MD Technol ogist: Merced Contreras RT(R)(MR) Trnscrd Date/Time/ By: 06/26/2018 (09) : By: [email or web address] Orig Print D/T: S: 06/26/2018 (0 795) PAGE 2 Signed Report - US GUIDANCE [facility] [id number] 13:15:00 FAX: Lizzy Small MD [phone] [place]: St: PRE FAX: Marjorie Cantor MD [phone] Name: ANTONIO BAUMAN [facility] : 1965 Age/S: 52/F [address] [place] [address] Blvd Unit #: [id number] Loc: [place] [address] Phys: Lizzy Aparicio MD Acct: [id number] Dis Date: Status: PRE [facility] PHONE #: [phone] Exam Date: 06/22/2018 1043 FAX #: [phone] Reason: VASCULAR ACCESS FOR P AC PLACEMENT EXAMS: CPT CODE: [id number] US GUIDANCE [facility] ACCESS 40126 PROCEDURE: Placement of tunneled chest port catheter usin g ultrasound and fluoroscopic guidance. INDICATION: Breast c ancer. COMPARISON: None. TECHNICAL: Fluorosco pic time was 0.5 minutes. Reference Air Kerma Dose 2 mGy. M ODERATE SEDATION: I supervised moderate sedation during this procedure. T he patient was monitored by nurse using automated blood pressure, EKG and pulse oximetry. The moderate sedation record is permanently stored in the hospital information system. The personal supervised moderate sedation carlos e was 32 minutes. Medications administered: 1 mg of IV Versed and 50 micro grams of IV Fentanyl. PROCEDURE: The procedure, risks , benefits and alternatives were discussed. Informed consent was obtained. Timeout was performed prior to the procedure. All elements of maximal sterile barrier technique were performed. The right neck and u pper anterior chest was sterilely prepped and draped. 1% lidocaine was use d for local anesthesia. Ultrasound was used to evaluate potential venous a ccess sites. Patency of the internal jugular vein was confirmed. Realtime ultrasound was used to visualize vascular needle entry into the internal j ugular vein. Ultrasound imaging of the needle puncture was obtained for pe rmanent recording and reporting. The guidewire was advanced centrally. The port pocket was created in the subclavicular chest region. Pocket was irrigated with antibiotic solution. The port catheter was tu nneled from the pocket superiorly to the neck puncture site. The catheter was cut to the appropriate length and advanced intravascularly through a p eel-away sheath in the internal jugular vein. The sheath was removed, and a final radiograph was obtained. The neck incision was closed with Dermabo nd and Steri-Strips. The port pocket were closed using absorbable suture, Dermabond Steri-Strips. The catheter was flushed with heparinized s edwardo. A sterile dressing was applied. PAGE 1 Signed Report (CONTINUED) FAX: Lizzy Small MD [phone] [place]: St: PRE FAX: Marjorie Cantor MD [phone] -- Ervin trevor: ANTONIO BAUMAN [facility] [place] : 1965 Age/S: 52/F [address] [place] [address] Unit #: [id number] Loc: [place] [address] Phys: Magen Aparicio MD Acct: [id number] Dis D ate: Status: PRE [facility] PHONE #: Exam Date: 06/22/2018 1043 FAX #: Reason: VASCULAR ACCESS FOR PAC PLACEMENT EXAMS: CPT CODE: [id number] [facility] G[facility]ANCE [facility] ACCESS 51281 <Continued> FINDINGS: Successful placement of a tunneled right internal jugular port catheter using ultrasound and fluoroscopic guidance. The final radiograph demonstrates the tip of the catheter to be located in the upper right atrium. There were no evident complications and the patient had no complaints. IMPRESSION: 1. Successful placement of a tunneled right chest port catheter using ultrasound and fluoroscopic guidance. 2. The port catheter is ready for immediate use. at 1315 Reported and signed by: Michael Scherer D.O. CC: Lizzy Aparicio MD; Marjorie Eugene MD Technologist: Christiana Rowley RT(R) Trnutrd Date/Time/By: 06/22/2018 (7718) : By: [email or web address] Orig Print D/T: S: 06/22/2018 (1649) PAGE 2 Signed Report - FLUORO GUID CTRL [facility] [id number] 13:15:00 FAX: Lizzy Small MD [phone] [place]: St: PRE FAX: Marjorei Cantor MD [phone] Name: ANTONIO BAUMAN [facility] Wiliam Jasso : 1965 Age/S: 52/F [address] [place] [address] Unit #: [id number] Loc: [place] [address] Phys: Lizzy Aparicio MD Acct: [id number] Dis Date: Status: PRE SDC PHONE #: [phone] Exam Date: 06/22/2018 1043 FAX #: [phone] Reason: PAC PLACEMENT FOR CHEMOTHERAPY EXAMS: CPT CODE: [id number] FLUORO GUID CTRL ACC DEV 93355 PROCEDURE: Placement of tunneled chest port catheter using ultrasound and fluoroscopic guidance. INDICATION: Breast cancer. COMPARISON: None. TECHNICAL: Fluoroscopic time was 0.5 minutes. Reference Air Kerma Dose 2 mGy. MODERATE SEDATION: I supervised moderate sedation during this procedure. The patient was monitored by nurse using automated blood pressure, EKG and pulse oximetry. The moderate sedation record is permanently stored in the hospital information system. The personal supervised moderate sedation carlos e was 32 minutes. Medications administered: 1 mg of IV Versed and 50 micro grams of IV Fentanyl. PROCEDURE: The procedure, risks , benefits and alternatives were discussed. Informed consent was obtained. Timeout was performed prior to the procedure. All elements of maximal sterile barrier technique were performed. The right neck and u pper anterior chest was sterilely prepped and draped. 1% lidocaine was use d for local anesthesia. Ultrasound was used to evaluate potential venous a ccess sites. Patency of the internal jugular vein was confirmed. Realtime ultrasound was used to visualize vascular needle entry into the internal j ugular vein. Ultrasound imaging of the needle puncture was obtained for pe rmanent recording and reporting. The guidewire was advanced centrally. The port pocket was created in the subclavicular chest region. Pocket was irrigated with antibiotic solution. The port catheter was tu nneled from the pocket superiorly to the neck puncture site. The catheter was cut to the appropriate length and advanced intravascularly through a p eel-away sheath in the internal jugular vein. The sheath was removed, and a final radiograph was obtained. The neck incision was closed with Dermabo nd and Steri-Strips. The port pocket were closed using absorbable suture, Dermabond Steri-Strips. The catheter was flushed with heparinized s edwardo. A sterile dressing was applied. PAGE 1 Signed Report (CONTINUED) FAX: Y Lizzy Aparicio MD [place]: St: PRE FAX: Marjorie Cantor MD [phone] -- N trevor: MITULANTONIOKAMRYN CURTIS [facility] : 1965 Age/S: 52/F [address] [place] [address] Unit #: [id number] Loc: [place] [address] Phys: Magen Aparicio MD Acct: [id number] Dis D ate: Status: PRE SDC PHONE #: Exam Date: 06/22/2018 1043 FAX #: [phone] Reason: PAC PLACEMENT FOR CHEMOTHERAPY EXAMS: CPT CODE: [id number] FLUORO GUID CT RL ACC DEV 56364 <Continued> FINDINGS: Successful placement of a tunneled right internal jugular port catheter using ultrasound and fluoroscopic guidance. The final radiograph demonstrates the tip of the catheter to be located in the upper right atrium. There were no evident complications and the patient had no complaints. IMPRESSION: 1. Successful placement of a tunneled right chest port catheter using ultrasound and fluoroscopic guidance. 2. The port catheter is ready for immediate use. at 1315 Reported and signed by: Michael Scherer D.O. CC: Lizzy Aparicio MD; Marjorie Eugene MD Technologist: Christiana Rowley RT(R) Trnscrd Date/Time/By: 06/22/2018 (0076) : By: [email or web address] Orig Print D/T: S: 06/22/2018 (7386) PAGE 2 Signed Report CBC W/AUTO DIFF 2018-06-22 10:21:00* Test Item Value Reference Range Interpretation Comments WHITE BLOOD CELL (test code = WBC) 2.61 x10 3/uL 4.5-11.0 L RED BLOOD CELL (test code = RBC) 3.53 x10 6/uL 3.54-5.02 L HEMOGLOBIN (test code = HGB) 10.6 g/dL 11.0-15.0 L HEMATOCRIT (test code = HCT) 32.4 % 33.0-45.0 L MEAN CELL VOLUME (test code = MCV) 91.8 fL 81.0-99.0 N MEAN CELL HGB (test code = MCH) 30.0 pg 27.0-33.0 N MEAN CELL HGB CONCETRATION (test code = MCHC) 32.7 g/dL 33.0-37. 0 L RED CELL DISTRIBUTION WIDTH CV (test code = RDW) 17.6 % 11.5- 14.5 H RED CELL DISTRIBUTION WIDTH SD (test code = RDW-SD) 58.2 fL 37 .0-54.0 H PLATELET COUNT (test code = PLT) 273 x10 3/uL 150-400 N MEAN PLATELET VOLUME (test code = MPV) 10.9 fL 7.0-9.0 H NEUTROPHIL % (test code = NT%) 35.0 % 56.0-77.0 L IMMATURE GRANULOCYTE % (test code = IG%) 0.4 % 0.0-2.0 N LYMPHOCYTE % (test code = LY%) 59.0 % 14.0-32.0 H MONOCYTE % (test code = MO%) 3.4 % 4.8-9.0 L EOSINOPHIL % (test code = EO%) 1.1 % 0.3-3.7 N BASOPHIL % (test code = BA%) 1.1 % 0.0-2.0 N NUCLEATED RBC % (test code = NRBC%) 0.0 % 0-0 N NEUTROPHIL # (test code = NT#) 0.91 x10 3/uL 2.0-7.6 L IMMATURE GRANULOCYTE # (test code = IG#) 0.01 x10 3/uL 0.00-0.03 N LYMPHOCYTE # (test code = LY#) 1.54 x10 3/uL 1.0-3.8 N MONOCYTE # (test code = MO#) 0.09 x10 3/uL 0.1-0.8 L EOSINOPHIL # (test code = EO#) 0.03 x10 3/uL 0.0-0.2 N BASOPHIL # (test code = BA#) 0.03 x10 3/uL 0.0-0.2 N NUCLEATED RBC # (test code = NRBC#) 0.00 x10 3/uL 0.0-0.1 N MANUAL DIFF REQUIRED (test code = MDIFF) NO SLIDE REVIEWED, CONSISTENT WITH AUTO DIFF. HCG SERUM [id number] 09:39:00* Test Item Value Reference Range Interpretation Comments HCG SERUM QUAL (test code = HCGQL) SERUM NEGATIVE NEGATIVE NO RED TOP IN LAB [facility] 06/22/18 0904PROTHROMBIN [id number] 07:58:00* Test Item Value Reference Range Interpretation Comments PROTHROMBIN TIME PATIENT (test code = PTP) 10.6 SECONDS 9.3-12.9 N INTERNATIONAL NORMAL RATIO (test code = INR) 0.9 0.8-1.2 N TARGET INR BY INDICATION Indication INR1. Prophylaxis of venous thrombosis 2.0 - 3.0 (orthopedic surgery), Prophylaxis of venous thrombosis (other than high-risk surgery), Treatment of Deep Vein Thrombosis/Pulmonary Embolism, Prevention of systemic embolism - Tissue heart valves, Acute Myocardial Infarction (to prevent systemic embolism), Valvular heart disease, Atrial Fibrillation, Bileaflet mechanical valve in aortic position.2. Mechanical prosthetic valves (high risk), 2.5 - 3.5 Presence of Lupus Anticoagulant or Antiphospholipid Antibodies, Prevention of systemic embolism - Acute Myocardial Infarction (to prevent recurrent infarct). THROMBOPLASTIN TIME [id number] 07:58:00* Test Item Value Reference Range Interpretation Comments THROMBOPLASTIN TIME PARTIAL (test code = PTT) 26.6 Seconds 25.0-39. 5 N Therapeutic Range: 61.8-83.8 Sec Effective 04/17/2013 CBC W/AUTO [id number] 07:53:00* Test Item Value Reference Range Interpretation Comments WHITE BLOOD CELL (test code = WBC) 2.61 x10 3/uL 4.5-11.0 L RED BLOOD CELL (test code = RBC) 3.53 x10 6/uL 3.54-5.02 L HEMOGLOBIN (test code = HGB) 10.6 g/dL 11.0-15.0 L HEMATOCRIT (test code = HCT) 32.4 % 33.0-45.0 L MEAN CELL VOLUME (test code = MCV) 91.8 fL 81.0-99.0 N MEAN CELL HGB (test code = MCH) 30.0 pg 27.0-33.0 N MEAN CELL HGB CONCETRATION (test code = MCHC) 32.7 g/dL 33.0-37. 0 L RED CELL DISTRIBUTION WIDTH CV (test code = RDW) 17.6 % 11.5- 14.5 H RED CELL DISTRIBUTION WIDTH SD (test code = RDW-SD) 58.2 fL 37 .0-54.0 H PLATELET COUNT (test code = PLT) 273 x10 3/uL 150-400 N MEAN PLATELET VOLUME (test code = MPV) 10.9 fL 7.0-9.0 H LYMPHOCYTE % (test code = LY%) % 14.0-32.0 MANUAL DIFF REQUIRED (test code = MDIFF) - NM BONE WHOLE [id number] 16:49:00 FAX: Lizzy Small MD [phone] [place]: St: REG FAX: Marjorie Cantor MD [phone] Name: MITULANTONIOKAMRYN CURTIS [facility] : 1965 Age/S: 52/F [address] [place] [address] Unit #: [id number] [facility] [address] Phys: Lizzy Aparicio MD Acct: [id number] Dis Date: Status: REG CLI PHONE #: [phone] Exam Date: 06/19/2018 1028 FAX #: [phone] Reason: C50.412 BREAST CANCER EXAMS: CPT CODE: [id number] NM BONE WHOLE BODY 00468 Nuclear medicine whole-body bone scan 07/07/2018 HI STORY: Breast cancer PROCEDURE: After the intravenous injection of 25 mCi of technetium 99m HDP, whole body anterior and posterior projectio n imaging was performed followed by spot images of the chest and pelvis. No prior bone scans available for comparison FINDINGS : Abnormal activity within the right L4 vertebral body is noted. There is abnormal activity within the L1 vertebral body as well as the T7-T12 vert ebral bodies. Mild activity within the mid left humerus is noted. Mild a ctivity within the mid right humerus is noted. Increased activity within the proximal left femur is noted. There is increased activity within the proximal right femur. Abnormal activity involving the calvarium is noted. Increased activity within the left lateral ribs is noted. There is phys iologic activity within the kidneys and urinary bladder. I MPRESSION: Metastatic disease involving bilateral proximal femurs, mid h umerus bilaterally, lower thoracic spine, L1, L4, left lateral ribs, and calvarium. SL: BM-H Electronical ly Signed by Aria Watson on 06/19/2018 at 4157 Reported and signed by: Beto srivastava M.D. CC: Lizzy Aparicio MD; Marjorie Eugene MD Technologist: Melissa Alaniz RT(N)(CT)(PET) Trnscrd D ate/Time/By: 06/19/2018 (4225) : By: [email or web address] Orig Print D/T: S: 04/2018 (7928) PAGE 1 Signed Repor t CBC W/AUTO [id number] 09:42:00* Test Item Value Reference Range Interpretation Comments WHITE BLOOD CELL (test code = WBC) 2.95 x10 3/uL 4.5-11.0 L RED BLOOD CELL (test code = RBC) 3.03 x10 6/uL 3.54-5.02 L HEMOGLOBIN (test code = HGB) 9.2 g/dL 11.0-15.0 L HEMATOCRIT (test code = HCT) 29.0 % 33.0-45.0 L MEAN CELL VOLUME (test code = MCV) 95.7 fL 81.0-99.0 N MEAN CELL HGB (test code = MCH) 30.4 pg 27.0-33.0 N MEAN CELL HGB CONCETRATION (test code = MCHC) 31.7 g/dL 33.0-37. 0 L RED CELL DISTRIBUTION WIDTH CV (test code = RDW) 14.3 % 11.5- 14.5 N RED CELL DISTRIBUTION WIDTH SD (test code = RDW-SD) 48.9 fL 37 .0-54.0 N PLATELET COUNT (test code = PLT) 269 x10 3/uL 150-400 N MEAN PLATELET VOLUME (test code = MPV) 10.8 fL 7.0-9.0 H NEUTROPHIL % (test code = NT%) 36.6 % 56.0-77.0 L IMMATURE GRANULOCYTE % (test code = IG%) 1.7 % 0.0-2.0 N LYMPHOCYTE % (test code = LY%) 51.2 % 14.0-32.0 H MONOCYTE % (test code = MO%) 9.2 % 4.8-9.0 H EOSINOPHIL % (test code = EO%) 0.3 % 0.3-3.7 N BASOPHIL % (test code = BA%) 1.0 % 0.0-2.0 N NUCLEATED RBC % (test code = NRBC%) 0.7 % 0-0 H NEUTROPHIL # (test code = NT#) 1.08 x10 3/uL 2.0-7.6 L IMMATURE GRANULOCYTE # (test code = IG#) 0.05 x10 3/uL 0.00-0.03 H LYMPHOCYTE # (test code = LY#) 1.51 x10 3/uL 1.0-3.8 N MONOCYTE # (test code = MO#) 0.27 x10 3/uL 0.1-0.8 N EOSINOPHIL # (test code = EO#) 0.01 x10 3/uL 0.0-0.2 N BASOPHIL # (test code = BA#) 0.03 x10 3/uL 0.0-0.2 N NUCLEATED RBC # (test code = NRBC#) 0.02 x10 3/uL 0.0-0.1 N MANUAL DIFF REQUIRED (test code = MDIFF) NO BASIC METABOLIC [id number] 08:26:00* Test Item Value Reference Range Interpretation Comments SODIUM (test code = NA) 142 mEq/L 134-147 N POTASSIUM (test code = K) 4.1 mEq/L 3.4-5.0 N CHLORIDE (test code = CL) 115 mEq/L 100-108 H CARBON DIOXIDE (test code = CO2) 23 mEq/L 21-33 N ANION GAP (test code = GAP) 8 0-20 N GLUCOSE (test code = GLU) 77 mg/dL 70-110 N BLOOD UREA NITROGEN (test code = BUN) 12 mg/dL 7-18 N GLOMERULAR FILTRATION RATE (test code = GFR) 129.6 90-95 H Units of measure = ml/min/1.73 m2 CREATININE (test code = CREAT) 0.5 mg/dL 0.6-1.3 L CALCIUM (test code = CA) 7.7 mg/dL 8.0-10.5 L - MRI BRAIN WO/W [id number] 20:19:00 FAX: Skinny Linares [phone] [place]: St: ADM FAX: Clarice Whitfield NP [phone] FAX: Marjorie Catnor MD [phone] Name: ANTONIO BAUMAN [facility] : 1965 Age/S: 52/F [address] [place] [address] Unit #: [id number] Loc: G.524 [place] [address] Phys: Clarice Briggs NP Acct: [id number] Dis Date: Status: ADM IN ONE #: [phone] Exam Date: 05/21/20181932 FAX #: [phone] Reason: LLE numbness and tingling EXAMS: CPT CODE: [id number] MR I BRAIN WO/W CONT 01725 BRAIN MRI WITH AND WITHOUT CONTRAST 05/21/2018 AT 1909 HOURS. CLINICAL HISTORY: Le ft upper/lower extremity numbness and tingling. Nausea and vomiting. Mariola ast cancer history. COMPARISON STUDIES: Head CT from earlier today at 0724 hours. ADMINISTERED CONTRAST: 13 mL of Gadavist intraveno usly. FINDINGS: Full and complete multiplanar T1, T2, T2*, FLAIR a nd diffusion-weighted sequences of the brain and cerebellum were obtained with and without IV contrast. There are no signs of intracr anial hemorrhage, acute infarction, cerebral edema, hydrocephalus, mass oc cupying lesion, midline shift or intra or extra-axial fluid collections. T he sella and orbits are grossly unremarkable. Normal flow-voids are seen i n the anterior and posterior cerebral arterial circulation as well as the venous sinuses. No abnormal intracranial enhancement. Variegated T1 bone marrow signal is identified involving the skull, clivus and visualized up per cervical spine. No corresponding signal abnormality is seen by T2 and DWI sequences. A small mucoid retention cyst is seen along the pos terior aspect of the right maxillary sinus. Mild ethmoid and right fronta l sinus mucosal thickening. Clear mastoid air cells. IMPRESSION : 1. No acute intracranial finding. No signs of acute ischemia or hemorrhage. 2. Variegated marrow signal involving the skull, clivus a nd visualized upper cervical spine. Consider bone scan correlation to as sess for red marrow hyperplasia and to exclude early calvarial metastati c disease. 3. Otherwise no signs of intracranial metastasis. 4. Chronic inflammatory sinus disease. SL: ER-H * * at 2019 Reported and sign ed by: Misael Ha M.D. PAGE 1 Signed R dm (CONTINUED) FAX: Skinny Linares [place]: St: ADM FAX: Clarice Whitfield NP [phone] FA X: Marjorie Cantor MD [phone] Name: ANTONIO BAUMAN [facility] : 1965 Age/S: 52/F [address] [place] [address] Unit #: [id number] Loc: G.[address] [place] [address] Phys: Clarice Briggs NP Acct: [id number] Dis Date: Status: ADM IN PHONE #: [phone] Exam Date: 06/2018 FAX #: [phone] Reason: LLE numbness a nd tingling EXAMS: CPT CODE: [id number] MRI BRAIN WO/W CONT 70 553 <Continued> CC: Skinny Rios MD; Clarice Briggs NP; Marjorie Eugene MD Technologist: RT Bryanna(R)(CT) Trnscrd Date/Time/By: 05/21/2018 (2018) : By: [email or web address] Orig Print D/T: S: 05/21/2018 (2022) PAGE 2 Signed Report CBC W/AUTO [id number] 09:14:00* Test Item Value Reference Range Interpretation Comments WHITE BLOOD CELL (test code = WBC) 2.90 x10 3/uL 4.5-11.0 L RED BLOOD CELL (test code = RBC) 3.06 x10 6/uL 3.54-5.02 L HEMOGLOBIN (test code = HGB) 9.3 g/dL 11.0-15.0 L HEMATOCRIT (test code = HCT) 29.0 % 33.0-45.0 L MEAN CELL VOLUME (test code = MCV) 94.8 fL 81.0-99.0 N MEAN CELL HGB (test code = MCH) 30.4 pg 27.0-33.0 N MEAN CELL HGB CONCETRATION (test code = MCHC) 32.1 g/dL 33.0-37. 0 L RED CELL DISTRIBUTION WIDTH CV (test code = RDW) 14.1 % 11.5- 14.5 N RED CELL DISTRIBUTION WIDTH SD (test code = RDW-SD) 47.8 fL 37 .0-54.0 N PLATELET COUNT (test code = PLT) 250 x10 3/uL 150-400 N MEAN PLATELET VOLUME (test code = MPV) 10.8 fL 7.0-9.0 H MANUAL DIFF REQUIRED (test code = MDIFF) YES WBC [id number] 09:14:00* Test Item Value Reference Range Interpretation Comments SEGMENTED NEUTROPHILS (test code = SEG) 35.5 % 37-69 L LYMPHOCYTE (test code = LYMPH) 56.4 % 23-55 H REACTIVE LYMPH (test code = RELYMPH) 3.6 % EOSINOPHIL (test code = EOS) 1.8 % 0.0-4.0 N BASOPHIL (test code = BASO) 0.9 % 0.0-2.0 N MYELOCYTE (test code = MYELO) 1.8 % 0.0-0.0 H TEAR DROP CELLS (test code = TEAR) FEW PLATELET ESTIMATE (test code = PLTEST) Adequate THOUSAND ADEQUATE PLATELET MORPHOLOGY (test code = PLTMORPH) GIANT PLATELETS CBC W/AUTO [id number] 09:09:00* Test Item Value Reference Range Interpretation Comments WHITE BLOOD CELL (test code = WBC) 2.90 x10 3/uL 4.5-11.0 L RED BLOOD CELL (test code = RBC) 3.06 x10 6/uL 3.54-5.02 L HEMOGLOBIN (test code = HGB) 9.3 g/dL 11.0-15.0 L HEMATOCRIT (test code = HCT) 29.0 % 33.0-45.0 L MEAN CELL VOLUME (test code = MCV) 94.8 fL 81.0-99.0 N MEAN CELL HGB (test code = MCH) 30.4 pg 27.0-33.0 N MEAN CELL HGB CONCETRATION (test code = MCHC) 32.1 g/dL 33.0-37. 0 L RED CELL DISTRIBUTION WIDTH CV (test code = RDW) 14.1 % 11.5- 14.5 N RED CELL DISTRIBUTION WIDTH SD (test code = RDW-SD) 47.8 fL 37 .0-54.0 N PLATELET COUNT (test code = PLT) 250 x10 3/uL 150-400 N MEAN PLATELET VOLUME (test code = MPV) 10.8 fL 7.0-9.0 H MANUAL DIFF REQUIRED (test code = MDIFF) YES WBC [id number] 09:09:00* Test Item Value Reference Range Interpretation Comments ANISOCYTOSIS (test code = ANISO) PLATELET ESTIMATE (test code = PLTEST) THOUSAND ADEQUATE CBC W/AUTO [id number] 09:09:00* Test Item Value Reference Range Interpretation Comments WHITE BLOOD CELL (test code = WBC) 2.90 x10 3/uL 4.5-11.0 L RED BLOOD CELL (test code = RBC) 3.06 x10 6/uL 3.54-5.02 L HEMOGLOBIN (test code = HGB) 9.3 g/dL 11.0-15.0 L HEMATOCRIT (test code = HCT) 29.0 % 33.0-45.0 L MEAN CELL VOLUME (test code = MCV) 94.8 fL 81.0-99.0 N MEAN CELL HGB (test code = MCH) 30.4 pg 27.0-33.0 N MEAN CELL HGB CONCETRATION (test code = MCHC) 32.1 g/dL 33.0-37. 0 L RED CELL DISTRIBUTION WIDTH CV (test code = RDW) 14.1 % 11.5- 14.5 N RED CELL DISTRIBUTION WIDTH SD (test code = RDW-SD) 47.8 fL 37 .0-54.0 N PLATELET COUNT (test code = PLT) 250 x10 3/uL 150-400 N MEAN PLATELET VOLUME (test code = MPV) 10.8 fL 7.0-9.0 H MANUAL DIFF REQUIRED (test code = MDIFF) YES WBC [id number] 09:09:00* Test Item Value Reference Range Interpretation Comments ANISOCYTOSIS (test code = ANISO) PLATELET ESTIMATE (test code = PLTEST) THOUSAND ADEQUATE - CT HEAD/BRAIN W/O [id number] 07:51:00 Name: ANTONIO BAUMAN [facility] : 1965 Age/S: 52 / F [address] [place] [address] Unit #: [id number] Loc: [place] [address] Phys: Clarice Briggs 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 Comparison: None TECHNIQUE: CT images were obtained from the foramen magnum to the vertex without the use of intravenous contrast on a multidetector CT. Axial, coronal and sagittal reformats created. Total exam DLP: 861.4 mGy-cm. DLP means dose length product, a radiation dose metric that does not report individual patient dose, but is a reference value related to the radiation output of the scanner used for this exam. FINDINGS: CALVARIUM AND SCALP: No acute fracture, or destructive osseous lesion. No scalp hematoma. VENTRICLES AND SULCI: Normal in size and configuration for the patient's age. EXTRA-AXIAL SPACES: No acute extra axial hemorrhage, fluid collection or mass effect. Incidental partially empty sella. BRAIN PARENCHYMA: The larsen-white differe ntiation and deep larsen nuclei are maintained. There is no acute parenchyma l hemorrhage. There is no mass effect, midline shift or edema. The pineal, sellar, brainstem, cerebellum and skull base regions appear unremarkable. PARANASAL SINUSES AND MASTOID AIR CELLS: Mild mucosal thickenin g of the ethmoid air cells. Paranasal sinuses are otherwise unremarkable. The mastoid air cells are clear. IMPRESSION: No acute intracranial abnormality. If th ere is further concern for intracranial pathology or acute stroke, MRI o f the brain may be performed for complete assessment. SL: [id number] PAGE 1 Signed Report (CONTINUED) Name: ANTONIO BAUMAN [facility] : 1965 Age/S: 52 / F [address] [place] [address] Blvd Unit #: [id number] Loc: [place] [address] Phys: Clarice Briggs NP Acc t: [id number] Dis Date: Status: ADM IN PHONE #: [phone] Exam Date: 05/21/2018 180 FAX #: [phone] Reason: Left sided numbness and tingling EXAMS: CPT CODE: [id number] HEAD/BRAIN W/O CONT 55617 <Continued> at 0751 Reported and signed by: Jelani Escobar M.D. CC: Clarice cantrell NP; Rachel Giron DO; Marjorie Eugene MD Technologist:RT Harpreet(R)(CT) CTDI: DLP: Trnscb Date/Time: 05/21/2018 (075) Alicia [email or web address] Orig Print D/T: S: 05/21/2018 (075) CTDI: DLP: PAGE 2 Signed Report BASIC METABOLIC [id number] 07:39:00* Test Item Value Reference Range Interpretation Comments SODIUM (test code = NA) 140 mEq/L 134-147 N POTASSIUM (test code = K) 3.9 mEq/L 3.4-5.0 N CHLORIDE (test code = CL) 111 mEq/L 100-108 H CARBON DIOXIDE (test code = CO2) 23 mEq/L 21-33 ANION GAP (test code = GAP) 10 0-20 N GLUCOSE (test code = GLU) 74 mg/dL 70-110 BLOOD UREA NITROGEN (test code = BUN) 11 mg/dL 7-18 N GLOMERULAR FILTRATION RATE (test code = GFR) 105.0 90-95 H Units of measure = ml/min/1.73 m2 CREATININE (test code = CREAT) 0.6 mg/dL 0.6-1.3 N CALCIUM (test code = CA) 7.6 mg/dL 8.0-10.5 L CBC W/AUTO [id number] 07:06:00* Test Item Value Reference Range Interpretation Comments WHITE BLOOD CELL (test code = WBC) 2.90 x10 3/uL 4.5-11.0 L RED BLOOD CELL (test code = RBC) 3.06 x10 6/uL 3.54-5.02 L HEMOGLOBIN (test code = HGB) 9.3 g/dL 11.0-15.0 L HEMATOCRIT (test code = HCT) 29.0 % 33.0-45.0 L MEAN CELL VOLUME (test code = MCV) 94.8 fL 81.0-99.0 N MEAN CELL HGB (test code = MCH) 30.4 pg 27.0-33.0 N MEAN CELL HGB CONCETRATION (test code = MCHC) 32.1 g/dL 33.0-37. 0 L RED CELL DISTRIBUTION WIDTH CV (test code = RDW) 14.1 % 11.5- 14.5 N RED CELL DISTRIBUTION WIDTH SD (test code = RDW-SD) 47.8 fL 37 .0-54.0 N PLATELET COUNT (test code = PLT) 250 x10 3/uL 150-400 N MEAN PLATELET VOLUME (test code = MPV) 10.8 fL 7.0-9.0 H LYMPHOCYTE % (test code = LY%) % 14.0-32.0 MANUAL DIFF REQUIRED (test code = MDIFF) [id number] 17:29:00* Test Item Value Reference Range Interpretation Comments PHOSPHOROUS (test code = PHOS) 2.7 mg/dL 2.5-4.9 N [id number] 17:29:00* Test Item Value Reference Range Interpretation Comments MAGNESIUM (test code = MAG) 2.50 mg/dL 1.8-2.4 H [id number] 17:06:00* Test Item Value Reference Range Interpretation Comments UA COLOR (test code = COLU) YELLOW YEL/STRAW UA APPEARANCE (test code = APPU) CLEAR CLEAR UA GLUCOSE DIPSTICK (test code = DGLUU) NEGATIVE NEGATIVE UA BILIRUBIN DIPSTICK (test code = BILU) NEGATIVE NEGATIVE UA KETONE DIPSTICK (test code = KETU) NEGATIVE NEGATIVE UA SPECIFIC GRAVITY (test code = SGU) 1.005 1.005-1.030 N UA BLOOD DIPSTICK (test code = SARAH) NEGATIVE NEGATIVE UA PH DIPSTICK (test code = LA) 8.0 5.0-7.0 H UA PROTEIN DIPSTICK (test code = PROU) NEGATIVE NEGATIVE UA UROBILINIOGEN DIPSTICK (test code = URO) 0.2 mg/dL 0.2-1.0 UA NITRITE DIPSTICK (test code = KENZIE) NEGATIVE NEGATIVE UA LEUKOCYTE ESTERASE DIPSTICK (test code = LEUU) NEGATIVE NEGA TIVE UA WBC (test code = WBCU) 0-3 WBC/HPF 0-3 UA RBC (test code = RBCU) 0-3 RBC/HPF 0-3 UA BACTERIA (test code = BACU) NONE SEEN /HPF NONE SEEN UA SQUAMOUS CELLS (test code = SQU) 6-10 /HPF NONE SEEN A COMPREHENSIVE METABOLIC [id number] 16:16:00* Test Item Value Reference Range Interpretation Comments SODIUM (test code = NA) 137 mEq/L 134-147 N POTASSIUM (test code = K) 3.8 mEq/L 3.4-5.0 N CHLORIDE (test code = CL) 103 mEq/L 100-108 N CARBON DIOXIDE (test code = CO2) 31 mEq/L 21-33 N ANION GAP (test code = GAP) 7 0-20 N GLUCOSE (test code = GLU) 132 mg/dL 70-110 H BLOOD UREA NITROGEN (test code = BUN) 13 mg/dL 7-18 N GLOMERULAR FILTRATION RATE (test code = GFR) 105.0 90-95 H Units of measure = ml/min/1.73 m2 CREATININE (test code = CREAT) 0.6 mg/dL 0.6-1.3 N TOTAL PROTEIN (test code = PROT) 7.5 g/dL 6.4-8.2 N ALBUMIN (test code = ALB) 3.60 g/dL 3.4-5.0 N CALCIUM (test code = CA) 8.6 mg/dL 8.0-10.5 N BILIRUBIN TOTAL (test code = BILT) 0.60 mg/dL 0.0-1.0 N SGOT/AST (test code = AST) 23 IUnit/L 15-37 N SGPT/ALT (test code = ALT) 18 IUnit/L 15-65 N ALKALINE PHOSPHATASE TOTAL (test code = ALKP) 67 IUnit/L 20-125 N [id number] 16:16:00* Test Item Value Reference Range Interpretation Comments LIPASE (test code = LIP) 136 IUnit/L 73-393 N COMPREHENSIVE METABOLIC [id number] 16:10:00* Test Item Value Reference Range Interpretation Comments SODIUM (test code = NA) 137 mEq/L 134-147 N POTASSIUM (test code = K) 3.8 mEq/L 3.4-5.0 N CHLORIDE (test code = CL) 103 mEq/L 100-108 N CARBON DIOXIDE (test code = CO2) 31 mEq/L 21-33 N ANION GAP (test code = GAP) 7 0-20 N GLUCOSE (test code = GLU) 132 mg/dL 70-110 H BLOOD UREA NITROGEN (test code = BUN) 13 mg/dL 7-18 N GLOMERULAR FILTRATION RATE (test code = GFR) 105.0 90-95 H Units of measure = ml/min/1.73 m2 CREATININE (test code = CREAT) 0.6 mg/dL 0.6-1.3 N TOTAL PROTEIN (test code = PROT) g/dL 6.4-8.2 ALBUMIN (test code = ALB) 3.60 g/dL 3.4-5.0 N CALCIUM (test code = CA) 8.6 mg/dL 8.0-10.5 N BILIRUBIN TOTAL (test code = BILT) mg/dL 0.0-1.0 SGOT/AST (test code = AST) 23 IUnit/L 15-37 N SGPT/ALT (test code = ALT) 18 IUnit/L 15-65 N ALKALINE PHOSPHATASE TOTAL (test code = ALKP) IUnit/L 20-125 [id number] 16:10:00* Test Item Value Reference Range Interpretation Comments LIPASE (test code = LIP) 136 IUnit/L 73-393 N PROTHROMBIN [id number] 16:06:00* Test Item Value Reference Range Interpretation Comments PROTHROMBIN TIME PATIENT (test code = PTP) 11.6 SECONDS 9.3-12.9 N INTERNATIONAL NORMAL RATIO (test code = INR) 1.0 0.8-1.2 N TARGET INR BY INDICATION Indication INR1. Prophylaxis of venous thrombosis 2.0 - 3.0 (orthopedic surgery), Prophylaxis of venous thrombosis (other than high-risk surgery), Treatment of Deep Vein Thrombosis/Pulmonary Embolism, Prevention of systemic embolism - Tissue heart valves, Acute Myocardial Infarction (to prevent systemic embolism), Valvular heart disease, Atrial Fibrillation, Bileaflet mechanical valve in aortic position.2. Mechanical prosthetic valves (high risk), 2.5 - 3.5 Presence of Lupus Anticoagulant or Antiphospholipid Antibodies, Prevention of systemic embolism - Acute Myocardial Infarction (to prevent recurrent infarct). THROMBOPLASTIN TIME [id number] 16:06:00* Test Item Value Reference Range Interpretation Comments THROMBOPLASTIN TIME PARTIAL (test code = PTT) 32.2 Seconds 25.0-39. 5 N Therapeutic Range: 61.8-83.8 Sec Effective 04/17/2013 CBC W/AUTO [id number] 15:54:00* Test Item Value Reference Range Interpretation Comments WHITE BLOOD CELL (test code = WBC) 3.07 x10 3/uL 4.5-11.0 L RED BLOOD CELL (test code = RBC) 3.75 x10 6/uL 3.54-5.02 N HEMOGLOBIN (test code = HGB) 11.5 g/dL 11.0-15.0 N HEMATOCRIT (test code = HCT) 35.4 % 33.0-45.0 N MEAN CELL VOLUME (test code = MCV) 94.4 fL 81.0-99.0 N MEAN CELL HGB (test code = MCH) 30.7 pg 27.0-33.0 N MEAN CELL HGB CONCETRATION (test code = MCHC) 32.5 g/dL 33.0-37. 0 L RED CELL DISTRIBUTION WIDTH CV (test code = RDW) 13.8 % 11.5- 14.5 N RED CELL DISTRIBUTION WIDTH SD (test code = RDW-SD) 46.6 fL 37 .0-54.0 N PLATELET COUNT (test code = PLT) 289 x10 3/uL 150-400 N MEAN PLATELET VOLUME (test code = MPV) 10.5 fL 7.0-9.0 H NEUTROPHIL % (test code = NT%) 44.9 % 56.0-77.0 L IMMATURE GRANULOCYTE % (test code = IG%) 0.7 % 0.0-2.0 N LYMPHOCYTE % (test code = LY%) 49.5 % 14.0-32.0 H MONOCYTE % (test code = MO%) 3.6 % 4.8-9.0 L EOSINOPHIL % (test code = EO%) 0.3 % 0.3-3.7 N BASOPHIL % (test code = BA%) 1.0 % 0.0-2.0 N NUCLEATED RBC % (test code = NRBC%) 0.7 % 0-0 H NEUTROPHIL # (test code = NT#) 1.38 x10 3/uL 2.0-7.6 L IMMATURE GRANULOCYTE # (test code = IG#) 0.02 x10 3/uL 0.00-0.03 N LYMPHOCYTE # (test code = LY#) 1.52 x10 3/uL 1.0-3.8 N MONOCYTE # (test code = MO#) 0.11 x10 3/uL 0.1-0.8 N EOSINOPHIL # (test code = EO#) 0.01 x10 3/uL 0.0-0.2 N BASOPHIL # (test code = BA#) 0.03 x10 3/uL 0.0-0.2 N NUCLEATED RBC # (test code = NRBC#) 0.02 x10 3/uL 0.0-0.1 N MANUAL DIFF REQUIRED (test code = MDIFF) NO - XR CHEST 1 [id number] 15:47:00 FAX: Rachel Giron DO [place]: St: REG Name: ATNONIO RICHARDS [facility] [place] : [birth year] Age/S: 52/F [address] [place] [address] Unit #: [id number] Loc: [place] [address] Phys: Rachel Giron DO Acct: [id number] Dis Date: Status: REG ER PHONE #: [phone] Exam Date: 05/20/2018 1523 FAX #: [phone] Reason: vomiting pain EXAMS: CPT CODE: [id number] XR CHEST 1 V 67930 CHEST, SINGLE VIEW H ISTORY: Chest pain and vomiting No comparison. FIN DINGS: The lungs are clear. The heart size and pulmonary vasculari ty are within normal limits. Previous left mastectomy and left axillary lymph node dissection. IMPRESSION: No act stephanie process. SL:01 Electronicall y Signed by Aria Escalante on 05/20/2018 at 1540 Reported and signed by: Med rosenberg M.D. CC: Rachel Giron DO Technologist: RT Nikkie(Zack) T rnsjodie Date/Time/By: 05/20/2018 (2739) : By: Juan R Orig Print D/T: S: 05/20/2018 (6758) PAGE 1 Sign ed Report
--- NOTE | 2020-01-25 17:49 | Emergency Department Note ---
History of Present Illnes History of Present Illness Chief Complaint: Chest Pain History of Present Illness This is a 54 year old female PATIENT IN FROM HOME WITH COMPLAINTS OF C HEST PAIN OFF AND ON X 3 DAYS; RATES PAIN 7/10, APPEARS UNCOMFORTABLE, TACHYPNEIC, O2 SATS 100% ON ROOM AIR. Historian: Patient Arrival Mode: Car Clinical Studies Specialist Required: No Onset (how long ago): day(s) (3) Location: ANTERIOR CHEST Quality: PAIN Radiation: Reports extremity (RIGHT SHOULDER) Severity: severe Timing of current episode: intermittent Progression: waxing and waning Chronicity: new Context: Reports recent illness Relieving factors: none Exacerbating factors: other (DEEP BREATH) Associated symptoms: Reports denies other symptoms, Reports chest pain, Reports shortness of breath (CORINA LAYNE MD) Past Medical/Family History Physician Review I have reviewed the patient's past medical and family history. Any updates have been documented here. (CORINA LAYNE MD) Past Medical History Recent Fever: No Clinical Suspicion of Infectio: No New/Unexplained Change in Ment: No Past Medical History: Cancer Other Medical History: METASTATIC BREAST CANCER TO BONES/LIVER Past Surgical History: Cholecysctectomy, Tubal Ligation, Mastectomy Other Surgery: LEFT MASTECTOMY (CORINA LAYNE MD) Social History Smoking Cessation: Unknown if ever smoked Counseling Performed: No Alcohol Use: None Any Illegal Drug Use: No TB Exposure/Symptoms: No Physically hurt or threatened: No (CORINA LAYNE MD) Family History Family history of heart diseas: No (CORINA LAYNE MD) Other Any Pre-Existing Lines (PICC,: Yes (PORT-A-CATH) (CORINA LAYNE MD) Review of Systems Review of Systems Constitutional: Reports no symptoms EENTM: Reports no symptoms Cardiovascular: Reports as per HPI, Reports chest pain Respiratory: Reports as per HPI, Reports dyspnea Gastrointestinal: Reports no symptoms Genitourinary: Reports no symptoms Musculoskeletal: Reports no symptoms Integumentary: Reports no symptoms Neurological: Reports no symptoms Psychological: Reports no symptoms Endocrine: Reports no symptoms Hematological/Lymphatic: Reports no symptoms (CORINA LAYNE MD) Physical Exam Related Data Allergies: Coded Allergies: oxycodone (Verified Allergy, Severe, 01/25/20) Triage Vital Signs Vital Signs Date Time Temp Pulse Resp B/P (MAP) Pulse Ox O2 Delivery O2 Flow Rate FiO2 11/7/20 16:37 98.5 109 26 130/85 100 Room Air Vital signs reviewed: Yes (CORINA LAYNE MD) Physical Exam CONSTITUTIONAL Constitutional: Present well-developed, Present well-nourished HENT HENT: Present normocephalic, Present atraumatic, Present oropharynx clear/moist, Present nose normal HENT L/R: Present left ext ear normal, Present right ext ear normal EYES Eyes: Reports PERRL, Reports conjunctivae normal NECK Neck: Present ROM normal PULMONARY Pulmonary: Present effort normal, Present respiratory distress (MILD, TACHYPNEIC) CARDIOVASCULAR Cardiovascular: Present regular rhythm, Present heart sounds normal, Present capillary refill normal, Present tachycardia GASTROINTESTINAL Abdominal: Present soft, Present nontender, Present bowel sounds normal GENITOURINARY Genitourinary: Present exam deferred SKIN Skin: Present warm, Present dry MUSCULOSKELETAL Musculoskeletal: Present ROM normal NEUROLOGICAL Neurological: Present alert, Present oriented x 3, Present no gross motor or sensory deficits PSYCHOLOGICAL Psychological: Present mood/affect normal, Present judgement normal (CORINA LAYNE MD) Results Laboratory Laboratory Laboratory Tests Test 01/25/20 17:25 White Blood Count 5.54 x10e3/uL (4.8-10.8) Red Blood Count 2.41 x10e6/uL (3.6-5.1) Hemoglobin 6.9 g/dL (12.0-16.0) Hematocrit 21.6 % (34.2-44.1) Mean Corpuscular Volume 89.6 fL (81-99) Mean Corpuscular Hemoglobin 28.6 pg (28-32) Mean Corpuscular Hemoglobin Concent 31.9 g/dL (31-35) Red Cell Distribution Width 18.2 % (11.7-14.4) Platelet Count 124 x10e3/uL (140-360) Neutrophils (%) (Auto) 45.7 % (38.7-80.0) Lymphocytes (%) (Auto) 34.5 % (18.0-39.1) Monocytes (%) (Auto) 10.6 % (4.4-11.3) Eosinophils (%) (Auto) 0.5 % (0.0-6.0) Basophils (%) (Auto) 1.1 % (0.0-1.0) Neutrophils # (Auto) 2.5 (2.1-6.9) Lymphocytes # (Auto) 1.9 (1.0-3.2) Monocytes # (Auto) 0.6 (0.2-0.8) Eosinophils # (Auto) 0.0 (0.0-0.4) Basophils # (Auto) 0.1 (0.0-0.1) Absolute Immature Granulocyte (auto 0.42 x10e3/uL (0-0.1) Prothrombin Time 14.6 seconds (11.9-14.5) Prothromb Time International Ratio 1.08 Activated Partial Thromboplast Time 31.4 seconds (23.8-35.5) D-Dimer Quantitative (PE/DVT) 3.29 ug/mLFEU (0.00-0.45) Sodium Level 138 mmol/L (136-145) Potassium Level 3.5 mmol/L (3.5-5.1) Chloride Level 106 mmol/L (98-107) Carbon Dioxide Level 24 mmol/L (22-29) Anion Gap 11.5 mmol/L (8-16) Blood Urea Nitrogen 17 mg/dL (7-26) Creatinine 0.71 mg/dL (0.57-1.11) Estimat Glomerular Filtration Rate > 60 ML/MIN (60-) BUN/Creatinine Ratio 24 (6-25) Glucose Level 112 mg/dL (74-118) Calcium Level 9.4 mg/dL (8.4-10.2) Total Bilirubin 0.5 mg/dL (0.2-1.2) Aspartate Amino Transf (AST/SGOT) 50 IU/L (5-34) Alanine Aminotransferase (ALT/SGPT) 9 IU/L (0-55) Alkaline Phosphatase 140 IU/L (40-150) Creatine Kinase 70 IU/L (29-168) Creatine Kinase MB 0.40 ng/mL (0-5.0) Troponin I 0.001 ng/mL (0-0.300) Total Protein 6.6 g/dL (6.5-8.1) Albumin 3.2 g/dL (3.5-5.0) Globulin 3.4 g/dL (2.3-3.5) Albumin/Globulin Ratio 0.9 (0.8-2.0) Laboratory Tests Test 01/25/20 17:25 Lab results reviewed: Yes (CORINA LAYNE MD) Imaging Imaging results reviewed: Yes Impressions EXAMINATION: CHEST SINGLE (PORTABLE) COMPARISON: None INDICATION: ^[id number] ^1730 ^CHEST PAIN DISCUSSION: Frontal view of the chest obtained at 1715 hours. HEART AND MEDIASTINUM: The cardiomediastinal silhouette is unremarkable. LINES: MediPort catheter terminates in the SVC. The port is in the right chest wall. LUNGS: The lungs are well inflated and clear. No pneumonia or pulmonary edema. PLEURA: No pleural effusion or pneumothorax. BONES AND SOFT TISSUES: No focal osseous lesion. There is a sclerotic appearance to the humeral heads and the right acromion. There is increased attenuation of the skeleton. Multiple surgical clips in the left chest wall and left axilla. UPPER ABDOMEN: Cholecystectomy clips in the right upper quadrant. IMPRESSION: No acute cardiopulmonary disease. Diffuse sclerosis of the skeleton is suggestive of osseous metastases or renal osteodystrophy. Signed by: Dr. Elsi Taveras MD on 01/25/2020 5:56 PM (CORINA LAYNE MD) Imaging results reviewed: Yes Impressions Procedure: [id number] CT/CT CHEST W Exam Date: 01/25/20 Exam Time: 1834 REPORT STATUS: Signed EXAM: CT Chest WITH contrast (PE Protocol) INDICATION: ^PE PROTOCOL ^[id number] ^1834 COMPARISON: Same day chest x-ray TECHNIQUE: Chest was scanned utilizing a multidetector helical scanner from the lung apex through the level of the diaphragm after administration of IV contrast. Thin section reconstructions were obtained with special concentration on the pulmonary arteries. Coronal and sagittal reformations were obtained. Dose modulation, iterative reconstruction, and/or weight based adjustment of the mA/kV was utilized to reduce the radiation dose to as low as reasonably achievable. Pulmonary embolism protocol was performed. IV CONTRAST: 100 mL of Isovue-370 COMPLICATIONS: None RADIATION DOSE: Total DLP: 476.15 mGy*cm Estimated effective dose: (DLP x 0.014 x size factor) mSv CTDIvol has been reviewed. It is below the limits set by the Radiation Protocol Committee (RPC). FINDINGS: LINES/ TUBES: Right chest wall port in place. Tip terminating in right atrium. LUNGS AND AIRWAYS: No filling defect is identified within the pulmonary arteries to the segmental level. Mild mosaic attenuation of the lower lobes, could be due to mild small airway disease. No focal consolidation. Airways are normal. PLEURA: The pleural spaces are clear. HEART AND MEDIASTINUM: The thyroid gland is normal. 1.4 cm right paratracheal lymph node. No hilar or axillary lymphadenopathy. The heart is normal in size.. There is no pericardial effusion. . Main pulmonary artery measures 2.8 cm in diameter. UPPER ABDOMEN: Cholecystectomy. BONES: Diffuse osseous metastatic disease. SOFT TISSUES: Left mastectomy. IMPRESSION: No pulmonary emboli. Signed by: Dr. Sage Eden MD on 01/25/2020 7:12 PM Dictated By: SAGE EDEN MD 11 Transcribed By: ABA on 01/25/201911 COPY TO: CORINA LAYNE MD~ (LEE BARKER MD) Procedures 12 Lead ECG Interpretation ECG Interpretation : ECG: ECG 1 Clinical Studies Specialist: Interpreted by ED physician Date: Jan 25, 2020 Time: 16:44 Rhythm: sinus rhythm Rate: normal BPM: 99 QRS axis: normal ST segments normal: Yes T wave inversion: III Q waves: III, aVF Clinical Impression: abnormal ECG (CORINA LAYNE MD) Assessment & Plan Medical Decision Making MDM PT WITH H/O METASTATIC BREAST CA, PRESENTS WITH CHEST PAIN - CBC, CHEM, ECG, CARDIACS, D-DIMER, CXR, COAG'S - R/O STEMI/NSTEMI, ANEMIA, PULM EMBOLISM, PNEUMONIA (CORINA LAYNE MD) Reassessment Reassessment ADMIT TO DR KIRBY ([facility]), transfuse. D-dimer elevated - CTA chest to be F/U by Dr Barker. I SPOKE WITH PATIENT REGARDING CODE STATUS - SHE DOES NOT WANT ANY AGGRESSIVE MEASURES, SHE IS DNR (CORINA LAYNE MD) Assessment & Plan Final Impression: (1) Chest pain (2) Anemia (3) Metastatic breast cancer (CORINA LAYNE MD) Depart Disposition: ADMITTED Last Vital Signs Date Time Temp Pulse Resp B/P (MAP) Pulse Ox O2 Delivery O2 Flow Rate FiO2 01/25/20 16:37 98.5 109 26 130/85 100 Room Air (CORINA LAYNE MD) Medications in the ED Sodium Chloride 1,000 ml @ 0 mls/hr Q0M STAT IV ; Start 01/25/20 at 16:49; Stop 01/25/20 at 16:51; Status DC Aspirin 81 mg PRN ONCE PO ; Start 01/25/20 at 17:00; Stop 01/25/20 at 17:01; Status DC (CORINA LAYNE MD) CORINA LAYNE MD Jan 25, 2020 17:49 LEE BARKER MD Jan 25, 2020 19:22
--- NOTE | 2020-01-25 17:59 | Diagnostic Imaging Report ---
EXAMINATION: CHEST SINGLE (PORTABLE) COMPARISON: None INDICATION: ^[id number] ^1730 ^CHEST PAIN DISCUSSION: Frontal view of the chest obtained at 1715 hours. HEART AND MEDIASTINUM: The cardiomediastinal silhouette is unremarkable. LINES: MediPort catheter terminates in the SVC. The port is in the right chest wall. LUNGS: The lungs are well inflated and clear. No pneumonia or pulmonary edema. PLEURA: No pleural effusion or pneumothorax. BONES AND SOFT TISSUES: No focal osseous lesion. There is a sclerotic appearance to the humeral heads and the right acromion. There is increased attenuation of the skeleton. Multiple surgical clips in the left chest wall and left axilla. UPPER ABDOMEN: Cholecystectomy clips in the right upper quadrant. IMPRESSION: No acute cardiopulmonary disease. Diffuse sclerosis of the skeleton is suggestive of osseous metastases or renal osteodystrophy. Signed by: Dr. Elsi Taveras MD on 01/25/2020 5:56 PM
[2020-01-25 18:00] LABS: BASOPHILS # (AUTO) 0.1 (0.0-0.1); BASOPHILS % 1.1 % (0.0-1.0); EOSINOPHILS % 0.5 % (0.0-6.0); LYMPHOCYTES # (AUTO) 1.9 (1.0-3.2); LYMPHOCYTES % 34.5 % (18.0-39.1); MEAN CORPUSCULAR HEMOGLOBIN 28.6 pg (28-32); MEAN CORPUSCULAR HGB CONC 31.9 g/dL (31-35); MEAN CORPUSCULAR VOLUME 89.6 fL (81-99); MONOCYTES # (AUTO) 0.6 (0.2-0.8); MONOCYTES % 10.6 % (4.4-11.3); NEUTROPHILS # (AUTO) 2.5 (2.1-6.9); NEUTROPHILS % 45.7 % (38.7-80.0); PLATELET COUNT 124 x10e3/uL (140-360); RED BLOOD COUNT 2.41 x10e6/uL (3.6-5.1); RED CELL DISTRIBUTION WIDTH 18.2 % (11.7-14.4)
[2020-01-25 18:03] LABS: INR 1.08; PROTHROMBIN TIME 14.6 seconds (11.9-14.5)
[2020-01-25 18:04] LABS: PARTIAL THROMBOPLASTIN TIME 31.4 seconds (23.8-35.5)
[2020-01-25 18:05] LABS: HEMATOCRIT 21.6 % (34.2-44.1); HEMOGLOBIN 6.9 g/dL (12.0-16.0)
[2020-01-25 18:15] LABS: ALANINE AMINOTRANSFERASE 9 IU/L (0-55); ALBUMIN 3.2 g/dL (3.5-5.0); ALBUMIN/GLOBULIN RATIO 0.9 (0.8-2.0); ALKALINE PHOSPHATASE 140 IU/L (40-150); ANION GAP 11.5 mmol/L (8-16); BLOOD UREA NITROGEN 17 mg/dL (7-26); BUN/CREATININE RATIO 24 (6-25); CALCIUM 9.4 mg/dL (8.4-10.2); CARBON DIOXIDE 24 mmol/L (22-29); CHLORIDE 106 mmol/L (98-107); CREATINE KINASE 70 IU/L (29-168); CREATININE, SERUM 0.71 mg/dL (0.57-1.11); EST GLOMERULAR FILTRATION RATE > 60 ML/MIN (60-); GLUCOSE 112 mg/dL (74-118); POTASSIUM 3.5 mmol/L (3.5-5.1); SODIUM 138 mmol/L (136-145)
[2020-01-25] MEDS ORDERED: SODIUM CHLORIDE 0.9% 250ML 250 ML IV ONE (18:30)
[2020-01-25 18:39] LABS: BAND NEUTROPHILS % (MANUAL) 2 %; LYMPHOCYTES % (MANUAL) 40 % (19-48); MONOCYTES % (MANUAL) 11 % (3.4-9.0); MYELOCYTES % (MANUAL) 1 % (0-0); NEUTROPHILS % (MANUAL) 46 % (40-74); NUCLEATED RED BLOOD CELLS 10; PLATELET ESTIMATE SLIGHTLY DECREASED; PLATELET MORPHOLOGY COMMENT NORMAL
[2020-01-25] MEDS ORDERED: HYDROMORPHONE 1MG/1ML INJ IV PRN (19:15)
[2020-01-25] MEDS ORDERED: SODIUM CHLORIDE 0.9% 1000ML 1,000 ML IV SCH (19:15)
[2020-01-25] MEDS ORDERED: ONDANSETRON HCL INJ 2MG/ML 2ML 2 MG/ML VIAL IV PRN (19:15)
--- NOTE | 2020-01-25 19:16 | Diagnostic Imaging Report ---
EXAM: CT Chest WITH contrast (PE Protocol) INDICATION: ^PE PROTOCOL ^[id number] ^1835 COMPARISON: Same day chest x-ray TECHNIQUE: Chest was scanned utilizing a multidetector helical scanner from the lung apex through the level of the diaphragm after administration of IV contrast. Thin section reconstructions were obtained with special concentration on the pulmonary arteries. Coronal and sagittal reformations were obtained. Dose modulation, iterative reconstruction, and/or weight based adjustment of the mA/kV was utilized to reduce the radiation dose to as low as reasonably achievable. Pulmonary embolism protocol was performed. IV CONTRAST: 100 mL of Isovue-370 COMPLICATIONS: None RADIATION DOSE: Total DLP: 476.15 mGy*cm Estimated effective dose: (DLP x 0.014 x size factor) mSv CTDIvol has been reviewed. It is below the limits set by the Radiation Protocol Committee (RPC). FINDINGS: LINES/ TUBES: Right chest wall port in place. Tip terminating in right atrium. LUNGS AND AIRWAYS: No filling defect is identified within the pulmonary arteries to the segmental level. Mild mosaic attenuation of the lower lobes, could be due to mild small airway disease. No focal consolidation. Airways are normal. PLEURA: The pleural spaces are clear. HEART AND MEDIASTINUM: The thyroid gland is normal. 1.4 cm right paratracheal lymph node. No hilar or axillary lymphadenopathy. The heart is normal in size.. There is no pericardial effusion. . Main pulmonary artery measures 2.8 cm in diameter. UPPER ABDOMEN: Cholecystectomy. BONES: Diffuse osseous metastatic disease. SOFT TISSUES: Left mastectomy. IMPRESSION: No pulmonary emboli. Signed by: Dr. Sage Laura MD on 01/25/2020 7:12 PM
--- OUTSIDE RECORDS SUMMARY | 2020-01-25 19:22 | XMS REPORT | Clinical Summary ---
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
--- OUTSIDE RECORDS SUMMARY | 2020-01-25 19:22 | XMS REPORT | Continuity of Care Document ---
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 Phone [employer] Unavailable Un available Problems Problem Status Onset Date Classification Date Reported Comments Source Hypertension Active 03/11/2013 [facility] Hyperlipidemia Active 03/11/2013 [facility] Medications Medication Details Route Status Patient Instructions Ordering Provider Order Date Source Ambien 10 MG Oral Tablet (Act stephanie) Active [facility] Allergies, Adverse Reactions, Alerts Substance Category Reaction Severity Reaction type Status Date Reported Comments Source No Known Drug Allergies drug a llergy drug aller gy Active [facility] Immunizations No Data Provided for This [...] ADM Date DC Date Status Source AUDIT [id number] 03/11/2013 03/11/2013 [facility] Procedures No Data Provided for This Section Assessment and Plan No Data Provided for This Section Plan of Care No Data Provided for This Section Social History Social History Date Source Marital History - Currently (Active) Current Smoker (305.1); (Active) Being A Social Drinker (Active) 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 03/11/2013 [facility] Functional Status No Data Provided for This Section
--- OUTSIDE RECORDS SUMMARY | 2020-01-25 19:22 | XMS REPORT | Continuity of Care Document ---
Author Author [facility] t Organization [facility] Address [address] [place] [address] Phone Unavailable Care Team Providers Care Seismograph Supervisor Name Role Phone Glen Johnston MD PCP Joanna LAYNE Attphys Unavailable Ervin Perez MA Attphys MARJORIE EUGENE M.D. Attphys Unavailable LEE KAUFFMAN M.D. Attphys Unavailable INNA BINGHAM Attphys Unavailable SALVATORE ASTUDILLO D.O. Attphys Unavailable MICHAEL KIRBY Admphys Unavailable Payers Payer Name Policy Type Policy [...] Added automaticall y from request for surgery [id number] MD Goodwin Malignant neoplasm of breast of unspecified site, fema le Malignant neoplasm of breast of unspecified site, female Disease Active 2017-12-05 00:00:00 Overview: Added automatically from request for surgery [id number] MD Goodwin Thoracic spondylosis without myelopathy Thoracic spondylosis without myelopathy Disease Active 2017-09-06 00:00:00 MD Goodwin Bilateral trochanteric bursitis Bilateral trochanteric bursitis Dis ease Active 2017-07-07 00:00:00 MD Zuniga son Pain in thoracic spine Pain in thoracic spine Disease Active 2017-07-07 00:00:00 MD Goodwin Lumbar radiculopathy Lumbar radiculopathy Disease Active 00:00:00 MD Goodwin Bursitis of right hip Bursitis of right hip Disease Active 201 09-17-26 00:00:00 Overview: 12/18 Regulatory Import MD [...] History of Uncontrolled other specified diabetes melli amols with hyperglycemia History of Uncontrolled other specified diabetes mellitus with hyperglycemia Problem Resolved [facility] History of insomnia History of insomnia Problem Resolved [facility] History of Multiparity History of Multiparity Problem Resolved [facility] Flashing light Flashing light Problem Active [facility] Chronic insomnia Chronic insomnia Problem Active [facility] Sinus tachycardia Sinus tachycardia Problem Active [facility] Essential (primary) hypertension Essential (primary) hypertensio n Problem Active [facility] History of chronic back pain History of chronic back pain Problem Active [facility] Neuropathy [facility]athy [facility] Hyperglycemia Hyperglycemia Problem Active [facility] Immunity status testing Immunity status testing Problem Active [facility] Flu vaccine need Flu vaccine need Problem Active [facility] PPD screening test PPD screening test Problem Active [facility] Tinea corporis Tinea corporis Problem Active [facility] BPPV (benign paroxysmal positional vertigo), bilateral BPPV (benign paroxysmal positional vertigo), bilateral Problem Active [facility] Hyperlipidemia Hyperlipidemia Problem Active [facility] Vision problem Vision problem Problem Active [facility] Depressive disorder Depressive disorder Problem Active [facility] Hearing problem, right Hearing problem, right Problem Active [facility] Pulsatile tinnitus Pulsatile tinnitus Problem Active [facility] Depression with anxiety Depression with anxiety Problem Active [facility] Abnormal glucose Abnormal glucose Problem Active [facility] Dizziness Dizziness Problem Active [facility] 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 Problem Active [facility] Vitamin D deficiency Vitamin D deficiency Problem Active [facility] Malignant neoplasm of axillary tail of left female mariola ast Malignant neoplasm of axillary tail of left female breast Problem Active [facility] Nausea and vomiting in adult Nausea and vomiting in adult Problem Active [facility] Anemia, unspecified type Anemia, unspecified type Problem Active [facility] Abnormal TSH Abnormal TSH Problem Active [facility] Headache Headache Problem Active [facility] Hypertension Hype rtension Active 03/11/2013 [place] [facility] Problem Active 2013-03-11 20:18:02 Griffin Vasquez Hyperlipidemia Hype rlipidemia Active 03/11/2013 [facility] Problem Active 2013-03-11 20:18:02 M merrick Vasquez Allergies, Adverse Reactions, Alerts Allergy Name Allergy Type Status Severity Reaction(s) Onset Date Inacti ve Date Treating Clinician Comments Source oxycodone DA Active IN 2018-06-22 00:00:00 [facility] oxycodone DA Active IN 2018-06-21 00:00:00 [facility] No Known Allergies DA Active U 2018-05-20 00:00:00 [facility] OxyCONTIN T12A Allergy to drug (finding) Active [facility] fentanyl Allergy to drug (finding) Active [facility] No Known Drug Allergies No Known Drug Allergies Active Mikaela Vasquez Family History Family Member Diagnosis Comments Start Date Stop Date Source Mother Family history of Hypertension [facility] Mother Family history of Diabetes Mellitus [facility] Mother Family history of Coronary Artery Disease [facility] Mother Family history of Breast Cancer [facility] Mother Family history of diabetes mellitus [facility] Mother Family history of hypertension [facility] Father Family history of Hypertension [facility] Father Family history of Rheumatoid Arthritis [facility] Father Family history of hyperlipidemia [facility] Father Family history of hypertension [facility] Father Family history of cerebrovascular accident (CVA) [facility] Brother Family history of diabetes mellitus [facility] Maternal aunt -Breast cancer MD Dariel mckeon Unknown Family Member Family History 2013-03-11 20:18:02 2 20:18:[address] [facility] [place] [place] Social History Social Habit Start Date Stop [...] Goodwin Social History 2013-03-11 20:18:02 2013-03-11 20:18:[address] [facility] [place] [place] Smoking Status Start Date Stop Date Source Smokes tobacco daily (finding) [facility] Former smoker 2017-12-23 00:00:00 2017-12-23 00:00:00 MD Zuniga son Medications Ordered Medication Name Filled Medication Name Start Date Stop Da te Current Medication? Ordering Clinician Indication Dosage Frequency Signature (SIG) Comments Components Source Sucralfate 1 GM Oral Tablet Sucralfate 1 GM Oral Tablet 2019-12-11 00:00:00 Yes MARJORIE EUGENE M.D. Q0.25D TAKE 1 TAB LET 4 TIMES DAILY, BEFORE MEALS AND AT BEDTIME. [facility] Vitamin D3 1.25 MG (62078 UT) Oral Tablet Vitamin D3 1 .25 MG (29297 UT) Oral Tablet 2019-11-26 00:00:00 Yes MARJORIE SATTAR M.D. TAKE 1 TABLET ONCE A WEEK [facility] Zoledronic Acid 4 MG/100ML Intravenous Solution Zoledr onic Acid 4 MG/100ML Intravenous Solution 2019-11-19 00:00:00 Yes MARJORIE EUGENE M.D. once a month [facility] cloNIDine HCl - 0.1 MG Oral Tablet cloNIDine HCl - 0.1 MG Or al Tablet 2019-11-19 00:00:00 Yes MARJORIE EUGENE M.D. TA KE 1 TABLET DAILY as needed if blood pressure > 150/90 [facility] Omeprazole 20 MG Oral Capsule Delayed Release Omeprazo le 20 MG Oral Capsule Delayed Release 2019-11-19 00:00:00 Yes MARJORIE EUGENE M.D. QD TAKE 1 CAPSULE DAILY EVERY MORNING BEFORE BREAKFAST. [facility] capecitabine (XELODA) 500 mg tablet [...] Take 125 mg by mouth daily. MD Goodwin traMADol (ULTRAM) 50 mg tablet 2017-10-03 00:00:00 Yes Neoplasm related pain (acute) (chronic) 50mg Take 1 tablet (50 mg) by mouth every 6 (six) hours as needed for moderate pain. MD Goodwin Ambien 10 MG Oral Tablet 2013-03-11 20:18:02 Yes (Active) Mikaela Vasquez Buprenorphine 10 MCG/HR Transdermal Patch Weekly Bupre norphine 10 MCG/HR Transdermal Patch Weekly Yes [facility] traMADol HCl - 50 MG Oral Tablet traMADol HCl - 50 MG Oral Tablet Yes TAKE 1 TABLETS BY MOUTH EVERY 12 HOURS NEEDED FOR PAIN [facility] Gabapentin 600 MG Tab (OR) - 61185_Deactivated Gabapen tin 600 MG Tab (OR) - 61185_Deactivated Yes 1 TAKE 1 TABLET BEDTIM E [facility] Immunizations Ordered Immunization Name Filled Immunization Name Date Status Comments Source Fluzone Quadrivalent 0.5 ML Intramuscular Suspension 2018-02-22 12:01:00 Completed [facility] Recombivax HB 10 MCG/ML Injection Suspension 2016-07-25 10 :10:00 Completed [facility] Hepatitis B 2016-06-24 14:23:00 Completed [facility] Tubersol 5 UNIT/0.1ML Intradermal Solution 2016-06-21 14:4 3:00 Completed [facility] Tdap (Adacel) 2016-06-21 13:17:00 [facility] Influenza 2016-01-14 16:03:00 Completed [facility] Vital Signs Vital Name Observation Time Observation Value Comments Source Systolic blood pressure 2019-12-11 09:39:00 120 mm[Hg] Loca tion: LUE; Position: Sitting [facility] Diastolic blood pressure 2019-12-11 09:39:00 66 mm[Hg] Loc ation: LUE; Position: Sitting [facility] Body height 2019-12-11 09:39:00 60 [in_us] [facility] Weight 2019-12-11 09:39:00 134.375 [lb_av] [facility] Body mass index (BMI) [Ratio] 2019-12-11 09:39:00 26.24 kg/m2 [facility] Body temperature 2019-12-11 09:39:00 97.4 [degF] Method: Temporal [facility] Heart Rate 2019-12-11 09:39:00 118 /min [facility] Respiratory rate 2019-12-11 09:39:00 16 /min [facility] Systolic blood pressure 2019-11-19 08:13:00 138 mm[Hg] Loca tion: RUE; Position: Sitting [facility] Diastolic blood pressure 2019-11-19 08:13:00 90 mm[Hg] Loc ation: RUE; Position: Sitting [facility] Heart Rate 2019-11-19 08:13:00 116 /min [facility] Body height 2019-11-19 08:13:00 60 [in_us] [facility] Weight 2019-11-19 08:13:00 134.3125 [lb_av] [facility] Body mass index (BMI) [Ratio] 2019-11-19 08:13:00 26.23 kg/m2 [facility] Body temperature 2019-11-19 08:13:00 98 [degF] Method: Temporal [facility] Respiratory rate 2019-11-19 08:13:00 16 /min [facility] BP Systolic 2018-10-05 10:19:00 126 mm[Hg] Location: RUE; Positi on: Sitting [facility] BP Diastolic 2018-10-05 10:19:00 89 mm[Hg] Location: RUE; Positi on: Sitting [facility] Heart Rate 2018-10-05 10:19:00 111 /min Location: R Brachial Artery; [facility] BP Systolic 2018-10-05 10:16:00 147 mm[Hg] Location: RUE; Positi on: Sitting [facility] BP Diastolic 2018-10-05 10:16:00 93 mm[Hg] Location: RUE; Positi on: Sitting [facility] Heart Rate 2018-10-05 10:16:00 109 /min Location: R Brachial Artery; [facility] Height 2018-10-05 10:16:00 60 [in_us] [facility] Weight 2018-10-05 10:16:00 147.5625 [lb_av] [facility] Body Mass Index Calculated 2018-10-05 10:16:00 28.82 kg/m2 [facility] Temperature 2018-10-05 10:16:00 97.8 [degF] Method: Temporal [facility] Respiration Rate 2018-10-05 10:16:00 109 /min Quality: Normal [facility] BP Systolic 2018-07-17 10:22:00 128 mm[Hg] [facility] BP Diastolic 2018-07-17 10:22:00 85 mm[Hg] [facility] Height 2018-07-17 10:22:00 60 [in_us] [facility] Weight 2018-07-17 10:22:00 149.125 [lb_av] [facility] Body Mass Index Calculated 2018-07-17 10:22:00 29.12 kg/m2 [facility] Heart Rate 2018-07-17 10:22:00 80 /min [facility] BP Systolic 2018-06-05 09:30:00 132 mm[Hg] Location: ALESHA Positi on: Sitting [facility] BP Diastolic 2018-06-05 09:30:00 86 mm[Hg] Location: SLY; Positi on: Sitting [facility] Height 2018-06-05 09:30:00 60 [in_us] [facility] Weight 2018-06-05 09:30:00 146.3125 [lb_av] [facility] Body Mass Index Calculated 2018-06-05 09:30:00 28.57 kg/m2 [facility] Temperature 2018-06-05 09:30:00 98.4 [degF] Method: Temporal [facility] Heart Rate 2018-06-05 09:30:00 108 /min [facility] Respiration Rate 2018-06-05 09:30:00 16 /min [facility] BP Systolic 2018-03-26 09:08:00 116 mm[Hg] Location: JOSI Positi on: Sitting [facility] BP Diastolic 2018-03-26 09:08:00 78 mm[Hg] Location: [place]; Positi on: Sitting [facility] Height 2018-03-26 09:08:00 60 [in_us] [facility] Weight 2018-03-26 09:08:00 149.25 [lb_av] [facility] Body Mass Index Calculated 2018-03-26 09:08:00 29.15 kg/m2 [facility] Temperature 2018-03-26 09:08:00 98.1 [degF] Method: Temporal [facility] Heart Rate 2018-03-26 09:08:00 98 /min [facility] Respiration Rate 2018-03-26 09:08:00 12 /min [facility] BP Systolic 2018-02-22 09:18:00 139 mm[Hg] Location: SLY; Positi on: Sitting [facility] BP Diastolic 2018-02-22 09:18:00 88 mm[Hg] Location: SLY; Positi on: Sitting [facility] Height 2018-02-22 09:18:00 60 [in_us] [facility] Weight 2018-02-22 09:18:00 153.3125 [lb_av] [facility] Body Mass Index Calculated 2018-02-22 09:18:00 29.94 kg/m2 [facility] Temperature 2018-02-22 09:18:00 98.1 [degF] Method: Temporal [facility] Heart Rate 2018-02-22 09:18:00 76 /min [facility] Respiration Rate 2018-02-22 09:18:00 16 /min [facility] Procedures Procedure Date / Time Performed Performing Clinician Sourc e [Q] FECAL GLOBIN BY IMMUNOCHEMISTRY 2019-12-04 00:00:00 [facility] [QL] TSH, 3RD GENERATION 2019-11-26 00:00:00 [facility] [QL] CBC (INCLUDES DIFF/PLT) 2019-11-26 00:00:00 [facility] [Q] IRON, TIBC AND FERRITIN PANEL 2019-11-26 00:00:00 [facility] [QL] VITAMIN B12/FOLATE, SERUM PANEL 2019-11-26 00:00:00 [facility] [QL] CBC (INCLUDES DIFF/PLT) 2019-11-20 00:00:00 [facility] [Q] IRON, TIBC AND FERRITIN PANEL 2019-11-20 00:00:00 [facility] [QL] VITAMIN B12/FOLATE, SERUM PANEL 2019-11-20 00:00:00 [facility] [Q] FECAL GLOBIN BY IMMUNOCHEMISTRY 2019-11-20 00:00:00 [facility] [QL] TSH, 3RD GENERATION W/REFLEX TO FT4 2019-11-20 00:00:00 [facility] [QL] CBC (INCLUDES DIFF/PLT) 2019-11-19 00:00:00 [facility] [QL] CMP W/EGFR 2019-11-19 00:00:00 [facility] [QL] TSH, 3RD GENERATION W/REFLEX TO FT4 2019-11-19 00:00:00 [facility] [QL] HEMOGLOBIN A1c 2019-11-19 00:00:00 [facility] [QL] VITAMIN D, 25-HYDROXY, LC/MS/MS 2019-11-19 00:00:00 [facility] [QL] URINALYSIS, COMPLETE W/REFLEX TO CULTURE 2019-11-19 00:00:0 0 [facility] MRA and MRV Brain wo contrast [id number] 2018-07-17 00:00:00 [facility] History of Cholecystectomy [facility] History of Tubal Ligation [facility] History of Dilation And Curettage [facility] History of Gallbladder Surgery [facility] History of Breast Surgery Mastectomy [facility] Plan of Care Planned Activity Planned Date Details Comments Source Future Scheduled Test 2020-01-01 00:00:00 [QL] TSH, 3RD GENE RATION W/REFLEX TO FT4 [code = [QL] TSH, 3RD GENERATION W/REFLEX TO FT4] [facility] Diagnostic Test Pending 2019-12-04 00:00:00 [Q] FECAL GLOBIN BY IMMUNOCHEMISTRY [code = [Q] FECAL GLOBIN BY IMMUNOCHEMISTRY] [facility] Future Scheduled Test 2019-10-19 00:00:00 INFLUENZA VACCINE [code = INFLUENZA VACCINE] [facility] Scheduled Test 2015-11-11 00:00:00 BREAST CANCER SCRE ENING [code = BREAST CANCER SCREENING] [facility] Scheduled Test 2015-11-11 00:00:00 COLONOSCOPY SCREEN ING [code = COLONOSCOPY SCREENING] [facility] Scheduled Test 2015-11-11 00:00:00 SHINGLES VACCINES (#1) [code = SHINGLES VACCINES (#1)] [facility] Future Scheduled Test 1986 00:00:00 Screening for melany gnant neoplasm of cervix (procedure) [code = 753965105] [facility] Encounters Start Date/Time End Date/Time Encounter Type Admission Type Attendi [facility] Care Department Encounter ID Source 2019-12-11 10:00:00 2019-12-11 10:00:00 Appointment; MARJORIE EUGENE M.D. SATTAR, BEENA, M.D. [facility] [id number] [facility] 2019-11-19 08:00:00 2019-11-19 08:00:00 Appointment; MARJORIE EUGENE M.D. SATTAR, BEENA, M.D. [facility] [id number] [facility] 2018-10-05 10:30:00 2018-10-05 10:30:00 Appointment; MARJORIE EUGENE M.D. SATTAR, BEENA, M.D. [facility] [id number] [facility] 2018-10-05 10:30:00 2018-10-05 10:30:00 Appointment; MARJORIE EUGENE M.D. SATTAR, BEENA, M.D. [facility] [id number] [facility] 2018-07-17 09:30:00 2018-07-17 09:30:00 Appointment; LEE KAUFFMAN M.D. BYRD, MICHAEL, M.D. [facility] Otorhinolaryngology [place] [address] [place] [address] Physicians 2018-06-25 09:00:00 2018-06-25 09:00:00 Appointment; MARJORIE EUGENE M.D. SATTAR, BEENA, M.D. [facility] [id number] [facility] 2018-06-05 09:30:00 2018-06-05 09:30:00 Appointment; MARJORIE EUGENE M.D. SATTAR, BEENA, M.D. [facility] [id number] [facility] 2018-03-26 09:00:00 2018-03-26 09:00:00 Appointment; MARJORIE EUGENE M.D. SATTAR, BEENA, M.D. [facility] [id number] [facility] 2018-02-22 09:15:2018-02-22 09:15:00 Appointment; MARJORIE EUGENE M.D. SATTAR, BEENA, M.D. [facility] [id number] [facility] 2016-08-19 08:30:00 2016-08-19 08:30:00 Appointment; MARJORIE EUGENE M.D. SATTAR, BEENA, M.D. [facility] [id number] [facility] 2016-07-25 08:00:00 2016-07-25 08:00:00 Appointment; MARJORIE EUGENE M.D. SATTAR, BEENA, M.D. [facility] [id number] [facility] 2016-07-08 08:30:00 2016-07-08 08:30:00 Appointment; MARJORIE EUGENE M.D. SATTAR, BEENA, M.D. [facility] [id number] [facility] 2016-06-30 10:00:00 2016-06-30 10:00:00 Appointment; [facility] E MARILYN [facility], ECHO [facility] UTP [id number] [facility] 2016-06-24 07:45:00 2016-06-24 07:45:00 Appointment; MARJORIE EUGENE M.D. SATTAR, BEENA, M.D. [facility] UTP [id number] [facility] 2016-06-21 13:30:00 2016-06-21 13:30:00 Appointment; MARJORIE EUGENE M.D. SATTAR, BEENA, M.D. [facility] UTP [id number] [facility] 2016-05-27 08:30:00 2016-05-27 08:30:00 Appointment; MARJORIE EUGENE M.D. SATTAR, BEENA, M.D. [facility] UTP [id number] [facility] 2016-04-15 13:30:00 2016-04-15 13:30:00 Appointment; MARJORIE EUGENE M.D. SATTAR, BEENA, M.D. [facility] UTP [id number] [facility] 2016-03-24 09:45:00 2016-03-24 09:45:00 Appointment; SALVATORE ASTUDILLO D.O. YEH, SHAO-CHUN, D.O. [facility] UTP [id number] [facility] 2013-03-11 14:18:02 2013-03-11 14:18:02 Outpatient MYLENE CHAKRABORTY [id number] Results Test Description Test Time Test Comments Results Result Comments Source CT CHEST W 2020-01-25 19:05:00 [facility] : 1965 Sex: F [place] [address] Patient Name: ANTONIO BAUMAN MR #: [id number] : 1965 Age/Sex: 54/F Req #: [id number] [facility] Physician: Ordered by: CORINA LAYNE MD Report #: [id number] Location: Room/Bed: Procedure: [id number] CT/CT CHEST W Exam Date: 01/25/20 Exam Time: 1834 REPORT STATUS: Signed EXAM: CT Chest WITH contrast (PE Protocol) INDICATION: PE PROTOCOL [id number] COMPARISON: Same day chest x-ray TECHNIQUE: Chest was scanned utilizing a multidetector helical scanner from the lung apex through the level of the diaphragm after administration of IV contrast. Thin section reconstructions were obtained with special concentration on the pulmonary arteries. Coronal and sagittal reformations were obtained. Dose modulation, iterative reconstruction, and/or weight based adjustment of the mA/kV was utilized to reduce the radiation dose to as low as reasonably achievable. Pulmonary embolism protocol was performed. IV CONTRAST: 100 mL of Isovue-370 COMPLICATIONS: None RADIATION DOSE: Total DLP: 476.15 mGy*cm Estimated effective dose: (DLP x 0.014 x size factor) mSv CTDIvol has been reviewed. It is below the limits set by the Radiation Protocol Committee (RPC). FINDINGS: LINES/ TUBES: Right chest wall port in place. Tip terminating in right atrium. LUNGS AND AIRWAYS: No filling defect is identified within the pulmonary arteries to the segmental level. Mild mosaic attenuation of the lower lobes, could be due to mild small airway disease. No focal consolidation. Airways are normal. PLEURA: The pleural spaces are clear. HEART AND MEDIASTINUM: The thyroid gland is normal. 1.4 cm right paratracheal lymph node. No hilar or axillary lymphadenopathy. The heart is normal in size.. There is no pericardial effusion. . Main pulmonary artery measures 2.8 cm in diameter. UPPER ABDOMEN: Cholecystectomy. BONES: Diffuse osseous met astatic disease. SOFT TISSUES: Left mastectomy. IMPRESSION: No pulmonary emboli. Signed by: Dr. Crystal Eden MD on 01/25/2020 7:12 PM Dictated By: CRYSTAL EDEN MD 11 Transcribed By: ABA on 01/25/201911 COPY TO: CORINA LAYNE MD CHEST SINGLE (PORTABLE) 2020-01-25 17:54:00 [facility] : 1965 Sex: F [facility] [address] [address] Patient Name: ANTONIO BAUMAN MR #: [id number] : 1965 Age/Sex: 54/F Req #: [id number] Adm Physician: Ordered by: CORINA LAYNE MD Report #: [id number] Location: ER Room/Bed: Procedure: [id number] DX/CHEST SINGLE (PORTABLE) Exam Date: 01/25/20 Exam Time: 173 REPORT STATUS: Signed EXAMINATION: CHEST SINGLE (PORTABLE) COMPARISON: None INDICATION: [id number] CHEST PAIN DISCUSSION: Frontal view of the chest obtained at 1715 hours. HEART AND MEDIASTINUM: The cardiomediastinal silhouette is unre markable. LINES: MediPort catheter terminates in the SVC. The port is in the right chest wall. LUNGS: The lungs are well inflated and clear. No pneumonia or pulmonary edema. PLEURA: No pleural effusion or pneumothorax. BONES AND SOFT TISSUES: No focal osseous lesion. There is a sclerotic appearance to the humeral heads and the right acromion. There is increased attenuation of the skeleton. Multiple surgical clips in the left chest wall and left axilla. UPPER ABDOMEN: Cholecystectomy clips in the right upper quadrant. IMPRESSION: No acute cardiopulmonary disease. Diffuse sclerosis of the skeleton is suggestive of osseous metastases or renal osteodystrophy. Signed by: Dr. Elsi Mcmillan MD on 01/25/2020 5:56 PM Dictated By: ELSI MCMILLAN MD 9596 Transcribed By: ABA on 01/25/20 1221 COPY TO: CORINA LAYNE MD CBC W/MANUAL DIFF 2019-12-24 16:47:00 Test Item [...] PLATELETS FEW LARGE PLTS SEEN CBC W/MANUAL [id number] 16:01:00* Test Item Value Reference Range Interpretation [...] = PLTEST) THOUSAND ADEQUATE - US ABDOMEN [id number] 08:31:00 Name: ANTONIO BAUMAN [facility] : 1965 Age/S: 54 / F [address] [place] [address] Unit #: [id number] Loc: [place] [address] Phys: Lizzy Aparicio MD Acct: [id number] Dis Date: Status: REG CLI PHONE #: [phone] Exam Date: 12/09/2019 08 FAX #: [phone] Reason: NAUSEA,RIGHT FLANK PAIN EXAMS: CPT CODE: [id number] US ABDOMEN COMPLETE 78509 PROCEDURE: ABDOMEN ULTRASOUND CLINICAL INDICATION: Right flank [...] IMPRESSION: 1. Cholecystectomy. 2. Liver metastases. SL: [id number] at 0831 Reported and signed by: Pancho Trevino M.D. PAGE 1 Signed Report (CONTINUED) Name: ANTONIO BAUMAN [facility] : 1965 Age/S: 54 / F [address] [place] [address] Blvd Unit #: [id number] Loc: [place] [address] Phys: Lizzy Aparicio MD Acct: [id number] Dis Date: Status: REG CLI PHONE #: [phone] Exam Date: 12/09/2019822 FAX #: [phone] Reason: NAUSEA,RIGHT FLANK PAIN EXAMS: CPT CODE: [id number] US ABDOMEN COMPLETE 19662 < Continued> CC: Lizzy Aparicio MD; Marjorie Eugene MD Technologist: Patsy Cardozo RDMS(AB)(OB) Trnscb Date/Time: 12/09/2019 (830) t.SDR.ETG Orig Print D/T: S: 12/09/2019 (34) Probe: PAGE 2 Signed Report [Q] FECAL GLOBIN BY [id number] 00:00:00* Test Item Value Reference Range Interpretation Comments FECAL GLOBIN BY IMMUNOCHEMISTRY (test code = 52239-3) See Comment FECAL GLOBIN BY IMMUNOCHEMISTRY Micro Number: [id number] Test Status: Final Specimen Source: INSURE () FOBT TEST CARD Specimen Quality: Adequate Fecal Globin: Not Detected [facility][Q] IRON, TIBC AND FERRITIN [id number] 14:26:00* Test Item Value Reference Range Interpretation Comments IRON, TOTAL (test code = IRON, TOTAL) 143 {mcg/dl} 45-160 N IRON BINDING CAPACITY (test code = IRON BINDING CAPACITY) 27 5 {mcg/dL ca} 250-450 N % SATURATION (test code = % SATURATION) 52 {% CALC} 16-45 FERRITIN (test code = FERRITIN) 1620 ng/ml 16-232 [facility][QL] CBC (INCLUDES DIFF/PLT)2019-12-02 14:26:00* Test Item Value Reference Range Interpretation Comments WHITE BLOOD CELL COUNT (test code = WHITE BLOOD CELL COUNT) 5.4 {Thousand/u} 3.8-10.8 N RED BLOOD CELL COUNT (test code = RED BLOOD CELL COUNT) 3.25 {Million/uL} 3.80-5.10 HEMOGLOBIN; Below Low Threshold (test code = 88057-7) 9.0 g/dl 11.7-15.5 HEMATOCRIT; Below Low Threshold (test code = 4544-3) 27.3 % 3 5.0-45.0 MCV; Normal (test code = 787-2) 84.0 fL 80.0-100.0 N MCHC; Normal (test code = 43239-6) 33.0 g/dl 32.0-36.0 N RDW; Above High Threshold (test code = 788-0) 15.8 % 11.0-15. 0 PLATELET COUNT; Normal (test code = 777-3) 236 {Thousand/u} 140-400 N MPV; Normal (test code = 85227-9) 10.2 fL 7.5-12.5 N ABSOLUTE NEUTROPHILS (test code = ABSOLUTE NEUTROPHILS) 2786 {cells/uL} 5817-5565 N ABSOLUTE LYMPHOCYTES (test code = ABSOLUTE [...] % N MONOCYTES; Normal (test code = 80459-2) 7.2 % N EOSINOPHILS; Normal (test code = 77378-1) 2.2 % N BASOPHILS; Normal (test code = 53790-0) 1.1 % N COMMENT(S) (test code = COMMENT(S)) See Comment Review of peripheral smear confirmsautomated results. [facility][QL] VITAMIN B12/FOLATE, SERUM [id number] 14:26:00* Test Item Value Reference Range Interpretation Comments VITAMIN B12 (test code = VITAMIN B12) 333 pg/ml 200-1100 N Please Note: Although the reference range for ipvllreP31 is 200-1100 pg/mL, it has been reported that between5 and 10% of patients with values between 200 and 400pg/mL may experience neuropsychiatric and hematologicabnormalities due to occult B12 deficiency; less than 1%of patients with values above 400 pg/mL will have symptoms. FOLATE, SERUM (test code = FOLATE, SERUM) 6.2 ng/ml N Reference Range Low: <3.4 Borderline: 3.4-5.4 Normal: >5.4 [facility][QL] CMP [id number] 09:38:00* Test Item Value Reference Range Interpretation Comments GLUCOSE; Normal (test code = 1547-9) 98 mg/dl 65-99 N Fasting reference interval UREA NITROGEN (BUN) (test code = UREA NITROGEN (BUN)) 15 mg/dl 7-25 N CREATININE (test code = CREATININE) 0.72 mg/dl 0.50-1.05 N For patients >49 years of age, the reference limitfor Creatinine is approximately 13% higher for peopleidentified as -Gabonese. eGFR NON-AFR. BAHAMIAN (test code = eGFR NON-AFR. BAHAMIAN) 95 {ML/MIN/1.7} > OR = 60 N [...] N BILIRUBIN, TOTAL; Normal (test code = 06715-7) 0.5 mg/dl 0.2-1.2 N ALKALINE PHOSPHATASE (test code = ALKALINE PHOSPHATASE) 141 u/l 37-153 N AST; Normal (test code = 1916-6) 24 u/l 10-35 N ALT; Below Low Threshold (test code = 1742-6) 5 u/l 6-29 [facility][] URINALYSIS, COMPLETE W/REFLEX TO CULTURE 2019-11-19 09:38:00* [...] NEGATIVE N BILIRUBIN; Normal (test code = 78730-6) NEGATIVE NEGATIVE N Verified by repeat analysis. KETONES; Abnormal (test code = 70403-6) TRACE NEGATIVE A OCCULT BLOOD; Normal (test code = 97931-0) NEGATIVE NEGATIVE N PROTEIN; Abnormal (test code = 56973-7) 1+ NEGATIVE A NITRITE (test code = NITRITE) NEGATIVE NEGATIVE N LEUKOCYTE ESTERASE (test code = LEUKOCYTE ESTERASE) NEGATIVE NE GATIVE N WBC; Normal (test code = 6690-2) 0-5 < OR = 5 N RBC; Normal (test code = 789-8) NONE SEEN < OR = 2 N SQUAMOUS EPITHELIAL CELLS (test code = 31382-3) 0-5 < OR = 5 BACTERIA; Abnormal (test code = 630-4) FEW NONE SEEN A AMORPHOUS SEDIMENT; Abnormal (test code = 8246-1) MANY NONE OR FEW A HYALINE CAST; Abnormal (test code = 86142-1) 0-1 NONE SEEN A COMMENTS (test code = 20062-4) FEW MUCOUS THREADS NOTE (test code = NOTE) See Below This urine was analyzed for the presence of WBC, RBC, bacteria, casts, and other formed elements. Only those elements seen were reported. [facility][Q] REFLEXIVE URINE [id number] 09:38:00* Test Item Value Reference Range Interpretation Comments REFLEXIVE URINE CULTURE (test code = REFLEXIVE URINE C ULTURE) NO CULTURE INDICATED [facility][QL] CBC (INCLUDES DIFF/PLT)2019-11-19 09:38:00* Test Item Value Reference Range Interpretation Comments WHITE BLOOD CELL COUNT (test code = WHITE BLOOD CELL COUNT) 4.6 {Thousand/u} 3.8-10.8 N RED BLOOD CELL COUNT (test code = RED BLOOD CELL COUNT) 3.75 {Million/uL} 3.80-5.10 HEMOGLOBIN; Below Low Threshold (test code = 50036-2) 10.2 g/dl 11.7-15.5 HEMATOCRIT; Below Low Threshold (test code = 4544-3) 31.8 % 3 5.0-45.0 MCV; Normal (test code = 787-2) 84.8 fL 80.0-100.0 N MCHC; Normal (test code = 22133-1) 32.1 g/dl 32.0-36.0 N RDW; Above High Threshold (test code = 788-0) 15.3 % 11.0-15. 0 PLATELET COUNT; Normal (test code = 777-3) 300 {Thousand/u} 140-400 N MPV; Normal (test code = 65445-5) 9.8 fL 7.5-12.5 N ABSOLUTE NEUTROPHILS (test code = ABSOLUTE NEUTROPHILS) 2217 {cells/uL} 9286-7961 N ABSOLUTE LYMPHOCYTES (test code = ABSOLUTE [...] % N MONOCYTES; Normal (test code = 05860-9) 7.3 % N EOSINOPHILS; Normal (test code = 45005-6) 3.0 % N BASOPHILS; Normal (test code = 93957-4) 1.3 % N [facility][QL] TSH, 3RD GENERATION W/REFLEX TO [id number] 09:38:00* Test Item Value Reference Range Interpretation Comments TSH, 3RD GENERATION W/REFLEX TO FT4 (fermin t code = TSH, 3RD GENERATION W/REFLEX TO FT4) 5.06 {MIU/L} Reference Range > or = 20 Years 0.40-4.50 Ranges First trimester 0.26-2.66 Second trimester 0.55-2.73 Third trimester 0.43-2.91 [facility][QL] T4, [id number] 09:38:00* Test Item Value Reference Range Interpretation Comments T4, FREE (test code = T4, FREE) 1.2 ng/dl 0.8-1.8 N [facility][QL] VITAMIN D, 25-HYDROXY, LC/MS/[id number] 09:38:00* Test Item Value Reference Range Interpretation Comments VITAMIN D,25-OH,TOTAL,IA (test code = VITAMIN D,25-OH,TOTAL,IA) 21 ng/ml 30-100 Vitamin D Status 25-OH Vitamin D : Deficiency: <20 ng/mLInsufficiency: 20 - 29 ng/mLOptimal: > or = 30 ng/mL For 25-OH Vitamin D testing on patients on D2-supplementation and patients for whom quantitation of D2 and D3 fractions is required, the QuestAssureD(TM)25-OH VIT D, (D2,D3), LC/MS/MS is recommended: order code 57022 (patients >2yrs).See Note 1 Note 1 For additional information, please refer to http://[email or web address].Chibwe/faq/[email or web address] (This link is being provided for informational/educational purposes only.) [facility][QL] HEMOGLOBIN [id number] 09:38:00* Test Item Value Reference Range Interpretation Comments HEMOGLOBIN A1c; Above High Threshold (test code = 4548-4) 6.2 {% of total} <5.7 For someone without known diabetes, a he moglobin A1c value between 5.7% and 6.4% is consistent withprediabetes and should be confirmed with a follow-up test. For someone with known diabetes, a value <7%indicates that their diabetes is well controlled. J6rhvoehoj should be individualized based on duration ofdiabetes, age, comorbid conditions, and otherconsiderations. This assay result is consistent with an increased riskof diabetes. Currently, no consensus exists regarding use ofhemoglobin A1c for diagnosis of diabetes for children. [facility][QL] MICROALBUMIN, RANDOM URINE (W/CREATININE) 2019-11-19 09:38:00* Test Item Value Reference Range Interpretation Comments CREATININE, RANDOM URINE (test code = CREATININE, RANDOM URINE) TNP TEST NOT PERFORMED Specimen has been discarded. MICROALBUMIN (test code = MICROALBUMIN) TNP TEST NOT PERFORMED Specimen has been discarded. [facility]- MRI BRAIN WO/W [id number] 13:09:00 FAX: Lizzy Small MD [phone] [place]: St: REG FAX: Marjorie Cantor MD [phone] Name: ANTONIO BAUMAN [facility] : 1965 Age/S: 53/F [address] [place] [address] Blvd Unit #: [id number] Loc: [place] [address] Phys: Lizzy Aparicio MD Acct: [id number] Dis Date: Status: REG CLI PHONE #: [phone] Exam Date: 11/08/2019 1225 FAX #: [phone] Reason: BREAST CANCER, DIZZIN ESS, NAUSEA EXAMS: CPT CODE: [id number] MRI BRAIN WO/W CONT 40800 MRI brain without and with contrast 11/08/2019 [...] intracranial abnormality . No abnormal enhancement. SL: [id number] at 1218 Reported and signed b y: Beto Watson M.D. CC: Lizzy Aparicio MD; Marjorie Eugene MD Technologist: RT Vanessa(R)(MR) Trnscrd Date/Time/By: 11/08/2019 (1289) : By: [email or web address] Orig P rint D/T: S: 11/08/2019 (3616) PAGE 1 Signed Report - NM BONE WHOLE [id number] 11:10:00 FAX: Lizzy Small MD [phone] [place]: St: REG FAX: Marjorie Cantor MD [phone] Name: ANTONIO BAUMAN [facility] : 1965 Age/S: 53/F [address] [place] [address] Unit #: [id number] Loc: [place] [address] Phys: Lizzy Aparicio MD Acct: [id number] Dis Date: Status: REG CLI PHONE #: [phone] Exam Date: 10/28/2019 1059 FAX #: [phone] Reason: MALIG NEOPLASM OF UPPER-OUTER QUADRANT EXAMS: CPT CODE: [id number] NM BONE WHOLE BODY 08027 Nuclear medicine whole-body bone scan 10/28/2019 HISTORY: [...] No new metastatic l esion identified. SL: [id number] Electr onically Signed by Aria Watson on 020 at 1110 Reported and signed by: Beto Watson M.D. CC: Lizzy Aparicio MD; Marjorie Eugene MD Technologist: Vandana Miller, RT(N) BUMPER STRAIGHTENER; ... [facility] Date/Time/By: 10/28/2019 (1110) : By: [email or web address] Orig Print D/T: S: 10/28/2019 (1113) PAGE 1 Elsa d Report - CT CHEST W/[id number] 11:03:00 Name: ANTONIO BAUMAN [facility] : 1965 Age/S: 53 / F [address] [place] [address] Unit #: [id number] Loc: [place] [address] Phys: Marilyn Aparicio MD Acct: [id number] Di s Date: Status: REG CLI PHONE #: Exam Date: 10/28/2019 09 FAX #: Reason: MALIG NEOPLASM OF UPPER-OUTER QUADRANT EXAMS: CPT CODE: [id number] CT CHEST W/CO NTRAST 65752 CT CHEST, ABDOMEN AND PEL VIS WITH CONTRAST AND MULTIPLANAR REFORMATS 10/28/2019. INDIC ATION: Malignant neoplasm of the upper outer quadrant of the left breast. History of mastectomy. COMPARISON: [facility] chest/abdomen/pelvis CT , abdomen CT 02/25/2019 and [...] 1 Signed Report (CONTINUED) Name: ANTONIO BAUMAN [place] : 1965 Age/S: 53 / F [address] [place] [address] Unit #: [id number] Loc: [place] [address] Phys: Lizzy Aparicio MD Acct: [id number] Dis Date: tus: REG CLI PHONE #: [phone] Exam Date : 10/28/2019 09 FAX #: [phone] Reason: MALIG NE OPLASM OF UPPER-OUTER QUADRANT EXAMS: CPT CODE: [id number] CT CHEST W/CONTRAST 70002 <Continued> BOWEL: Nonobstructive bowel gas pattern without [...] size -Use of iterative reconstruction technique SL: [id number] at 1103 Reported and signed by: Misael Ha M.D. PAGE 2 Signed Report (CONTINUED) Name: ANTONIO BAUMAN : 1965 Age/S: 53 / F [address] [place] [address] Unit #: [id number] Loc: [place] [address] Phys: Magen Aparicio MD Acct: [id number] Dis Date: Status: REG CLI PHONE #: Exam Date: 10/28/2019916 FAX #: Reason: MALIG NEOPLASM OF UPPER-OUTER QUADRANT EXAMS: CPT CODE: [id number] CT CHEST W/CONT RAST 24917 <Continued> CC: Lizzy Aparicio MD; Marjorie Eugene MD Technologist:Ko Sun, RT(R)(CT); Ros CTDI: DLP: Trnscb Date/Time: 10/28/2019 (1103) t.SDR.ERR2 Orig Print D/T: S: 10/28/2019 (1106) PAGE 3 Signed Report - CT ABD PELVIS W/[id number] 11:03:00 Name: ANTONIO BAUMAN : 1965 Age/S: 53 / F [address] [place] [address] Unit #: [id number] Loc: [place] [address] Phys: Lizzy Aparicio MD Acct: [id number] Dis Date: Status: REG CLI PHONE #: [phone] Exam Date: 10/28/2019916 FAX #: [phone] Reason: MALIG NEOPLASM OF UPPER-OUTER QUADRANT EXAMS: CPT CODE: [id number] CT ABD PELVIS W/CONT 41458 CT CHEST, ABDOMEN AND PELVIS WITH CONTRAST AND MULTIPLANAR REFORMATS 10/28/2019. INDICATION: Malignant neoplasm of the upper outer quadrant of the left breast. History of mastectomy. COMPARISON: [facility] chest/abdomen/pelvis CT 04/18/2019, abdomen CT 02/25/2019 and [...] 1 Signed Report (CONTINUED) Name: ANTONIO BAUMAN [facility] : 1965 Age/S: 53 / F [address] [place] [address] Unit #: [id number] Loc: [place] [address] Phys: Lizzy Aparicio MD Acct: [id number] Dis Date: tus: REG CLI PHONE #: [phone] Exam Date : 10/28/2019 0917 FAX #: [phone] Reason: MALIG NE OPLASM OF UPPER-OUTER QUADRANT EXAMS: CPT CODE: [id number] CT ABD PELVIS W/CONT 71203 <Continued> BOWEL: Nonobstructive bowel gas pattern without [...] size -Use of iterative reconstruction technique SL: [id number] at 1103 Reported and signed by: Misael Ha M.D. PAGE 2 Signed Report (CONTINUED) Name: ANTONIO BAUMAN [facility] : 1965 Age/S: 53 / F [address] [place], [place] [address]vd Unit #: [id number] Loc: [place] [address] Phys: Magen Aparicio MD Acct: [id number] Dis Date: Status: REG CLI PHONE #: Exam Date: 10/28/2019916 FAX #: [phone] Reason: MALIG NEOPLASM OF UPPER-OUTER QUADRANT EXAMS: CPT CODE: [id number] CT ABD PELVIS W /CONT 65298 <Continued> CC: Lizzy Aparicio MD; Marjorie Eugene MD Technologist:Ko Sun, RT(R)(CT); Ros CTDI: DLP: Trnscb Date/Time: 10/28/2019 (8125) JacobR.[email or web address] Orig Print D/T: S: 10/28/2019 (2249) PAGE 3 Signed Report - NM BONE WHOLE [id number] 16:02:00 FAX: Lizzy Small MD [phone] [place]: St: REG FAX: Marjorie Cantor MD [phone] Name: ANTONIO BAUMAN [facility] : 1965 Age/S: 53/F [address] [place] [address] Unit #: [id number] Loc: [place] [address] Phys: Lizzy Aparicio MD Acct: [id number] Dis Date: Status: REG CLI PHONE #: [phone] Exam Date: 06/13/2019 1535 FAX #: [phone] Reason: BREAST CANCER. EXAMS: CPT CODE: [id number] NM BONE WHOLE BODY 64733 Nuclear whole body bone scan: HISTORY: Breast canc er, left upper arm pain. COMPARISON: Bone scan 11/20/2018, left carolina barrett 06/13/2019, abdomen pelvis CT 02/25/2019. TECHNIQUE: Patijoshua nt was injected IV right forearm with [...] right femur that suggests metastatic disease. SL: [id number] at 1602 Reported and sig kristine by: Pancho Trevino M.D. CC: Lizzy Aparicio MD; Marjorie Eugene MD Technologist: JEANMARIE Graham (N)(CT); ... Trnscrd Date/Time/By: 06/13/2019 (2970) : By: [email or web address] Orig Print D/T : S: 06/13/2019 (6053) PAGE 1 Sig kristine Report - XR HUMERUS 2 + V [id number] 11:48:00 FAX: Lizzy Small MD [phone] [place]: St: REG FAX: Marjorie Cantor MD [phone] Name: ANTONIO BAUMAN [facility] : 1965 Age/S: 53/F [address] [place] [address] Blvd Unit #: [id number] Loc: [place] [address] Phys: Lizzy Aparicio MD Acct: [id number] Dis Date: Status: REG CLI PHONE #: [phone] Exam Date: 06/13/2019 1133 FAX #: [phone] Reason: M79.622, C50.412, BREAST CANCER. EXAMS: CPT CODE: [id number] XR HUMERUS 2 + V LT [address] Study: - XR HUMERUS 2 + V LT 06/13/2019 11:14 AM Patient Name: ANTONIO BAUMAN MR: [id number] : 1965; Age: 53 years y/o Female [...] for persistent activity may be performed. SL: [id number] at 1148 Reported and signed by: Kunal Arciniega M.D. CC: Lizzy Aparicio MD; Marjorie Eugene MD Technologist: RT Antonio(R) Trnscrd Date/Time/By: 06/13/2019 (114) : By: [email or web address] Orig Print D/T: S: 06/13/2019 (0598) PAGE 1 Signed Report CBC W/AUTO [id number] 09:24:00* Test Item Value Reference Range Interpretation [...] (test code = MDIFF) NO BASIC METABOLIC [id number] 07:48:00* Test Item Value Reference Range Interpretation [...] CA) 8.1 mg/dL 8.0-10.5 N CBC W/AUTO [id number] 06:07:00* Test Item Value Reference Range Interpretation [...] REQUIRED (test code = MDIFF) YES WBC [id number] 06:07:00* Test Item Value Reference Range Interpretation [...] LARGE PLATELETS GIANT PLTS SEEN CBC W/AUTO [id number] 06:01:00* Test Item Value Reference Range Interpretation [...] REQUIRED (test code = MDIFF) YES WBC [id number] 06:01:00* Test Item Value Reference Range Interpretation Comments ANISOCYTOSIS (test code = ANISO) PLATELET ESTIMATE (test code = PLTEST) THOUSAND ADEQUATE CBC W/AUTO [id number] 06:01:00* Test Item Value Reference Range Interpretation [...] REQUIRED (test code = MDIFF) YES WBC [id number] 06:01:00* Test Item Value Reference Range Interpretation Comments ANISOCYTOSIS (test code = ANISO) PLATELET ESTIMATE (test code = PLTEST) THOUSAND ADEQUATE CBC W/AUTO [id number] 05:41:00* Test Item Value Reference Range Interpretation [...] REQUIRED (test code = MDIFF) BASIC METABOLIC [id number] 05:05:00* Test Item Value Reference Range Interpretation [...] 7.6 mg/dL 8.0-10.5 L RESPIRATORY VIRUS PANEL [id number] 18:34:00* Test Item Value Reference Range Interpretation [...] and Bordetella pertussis. - CT ABD PELVIS W/[id number] 18:22:00 Name: ANTONIO BAUMAN [facility] : 1965 Age/S: 53 / F [address] [place] [address] Unit #: [id number] Loc: [place] [address] Phys: Clarice Briggs CLINICAL ACCOUNT LIAISON Acct: [id number] Dis Date: Status: ADM IN PHONE #: [phone] Exam Date: 02/25/2019 175 FAX #: [phone] Reason: Abdominal pain and diarrhea EXAMS: CPT CODE: [id number] CT ABD PELVIS W/CONT 70200 Clinical Indication: Abdominal pain and diarrhea Comparison: [...] 1 Signed Report (CONTINUED) [facility] 1965 Age/S: 53 / F [address] [place] [address] Blvd Unit #: [id number] Loc: [place] [address] Phys: Clarice Briggs NP Acct: [id number] Dis Date: Status: ADM IN PHONE #: [phone] Exam Date: 02/25/2019 175 FAX #: [phone] Reason: Abdominal pain and diarrhea EXAMS: CPT CODE: [id number] CT ABD PELVIS W/CONT 82470 < Continued> PELVIS: There are no pelvic [...] M.D. CC: Carlos Byrd MD; Clarice Briggs CLINICAL ACCOUNT LIAISON; Marjorie Eugene MD Technologist:Marzena Lawrence, RT(R)(CT) CTDI: DLP: Trnscb Date/Time: 02/25/2019 (1821) t.SDR.LNV Orig Print D/T: S: 02/25/2019 (1824) PAGE 2 Signed Report UA RFLX MICR CULT IF [id number] 14:29:00* Test Item Value Reference Range Interpretation [...] Sepsis-no other srcSpecimen Description: CLEAN CATCHCOMPREHENSIVE METABOLIC [id number] 14:27:00* Test Item Value Reference Range Interpretation [...] ALKP) 67 IUnit/L 20-125 N COMPREHENSIVE METABOLIC [id number] 14:24:00* Test Item Value Reference Range Interpretation [...] code = ALKP) IUnit/L 20-125 CBC W/AUTO [id number] 14:17:00* Test Item Value Reference Range Interpretation [...] REQUIRED (test code = MDIFF) NO TROPONIN-I [id number] 13:54:00* Test Item Value Reference Range Interpretation Comments TROPONIN-I RAPID (test code = TROPIRAP) 0.02 ng/mL 0.00-0.08 N Performed by certified rooter operator at [facility] Negative: <= 0.08 Positive: >= 0.09An elevated troponin value alone is not sufficient todiagnose a myocardial infarction. Rather, the patient sclinical presentation (history, physical exam) and ECGshould be used in conjunction with troponin in thediagnostic evaluation of suspected myocardial infarction. Aserial sampling protocol is recommended to facilitate the identification of temporal changes in troponin levels characteristic of IN. LACTIC ACID [id number] 13:48:00* Test Item Value Reference Range Interpretation Comments LACTIC ACID POC (test code = LACTP) 1.8 MMOL/L 0.90-1.70 H Performed by certified rooter operator at [facility] - XR CHEST 1 [id number] 13:30:00 FAX: Maycol Lawton MD [phone] [place]: St: REG FAX: Marjorie Cantor MD [phone] Name: ANTONIO BAUMAN [facility] : 1965 Age/S: 53/F [address] [place] [address] Blvd Unit #: [id number] Loc: [place] [address] Phys: Maycol Lawton MD Acct: [id number] Dis Date: Status: REG ER PHONE #: [phone] Exam Date: 02/25/2019 1325 FAX #: [phone] Reason: tachycardia / diarrhea / ?sepsis EXAMS: CPT CODE: [id number] XR CHEST 1 V 78012 Exam: Chest radiograph frontal view Indication: 53-year-old [...] Impression: No acute cardiop ulmonary disease. SL: [id number] G03 at 3030 Reported and signed by: Parag Scott M.D. CC: Maycol Lawton MD; Marjorie Eugene MD Technologist: Mick Jolly, RT(R); RT Abram(R) Trnscrd Date/Time/By: 019 (0784) : By: [email or web address] Orig Print D/T: S: 02/25/2019 (9236) PAGE 1 Signed Report - NM BONE WHOLE [id number] 15:25:00 FAX: Lizzy Small MD [phone] [place]: St: REG FAX: Marjorie Cantor MD [phone] Name: ANTONIO BAUMAN [facility] : 1965 Age/S: 53/F [address] [place] [address] Unit #: [id number] Loc: ValerieHODAN [place] [address] Phys: Lizzy Aparicio MD Acct: [id number] Dis Date: Status: REG CLI PHONE #: [phone] Exam Date: 11/20/2018 1104 FAX #: [phone] Reason: C50.412 BREAST CANCER EXAMS: CPT CODE: [id number] NM BONE WHOLE BODY 53541 WHOLE BODY BONE SCAN: HISTORY: Breast cancer. [...] proximal right femur. 3. Region of photope fred uptake in the midthoracic region may represent postradiation changes . 4. No new abnormalities. SL:01 E lectronically Signed by Aria Zambrano on 11/20/2018 at 1525 Reported and signed by: Anders Zambrano M.D. CC: Lizzy Aparicio MD; Marjorie Eugene MD Technologist: JEANMARIE Graham (N)(CT); ... Tr [facility] Date/Time/By: 11/20/2018 (1370) : By: [facility] Orig Print D/T: S: 11/20/2018 (2385) PAGE 1 Elsa d Report - XR HUMERUS 2 + V [id number] 12:34:00 FAX: Lizzy Small MD [phone] [place]: St: PRE FAX: Marjorie Cantor MD [phone] Name: ANTONIO BAUMAN [facility] : 1965 Age/S: 52/F [address] [place] [address] Unit #: [id number] Loc: Tasneem [place] X [address] Phys: Lizzy Aparicio MD Acct: [id number] Dis Date: Status: PRE CLI PHONE #: [phone] Exam Date: 10/16/2018 1223 FAX #: [phone] Reason: L HUMERUS PAIN, BREAS T CANCER METS TO BONE EXAMS: CPT CODE: [id number] XR HUMERUS 2 + [place] LT [address]807 Left humerus radiograph October 16, 2018. COMPARISON: [...] Aparicio MD; Marjorie Eugene MD Technologist: RT Abram(R) Trnscrd Date/Time/By: (6933) : By: [email or web address] Orig Print D/T: S: 10/16/2018 (1155) PAGE 1 Signed Report - DUP VEIN [id number] 15:02:00 Name: ANTONIO BAUMAN [facility] : 1965 Age/S: 52 / F [address] [place] [address] Unit #: [id number] Loc: [place] [address] Phys: Lizzy Aparicio MD Acct: [id number] Dis Date: Status: REG CLI PHONE #: [phone] Exam Date: 08/23/2018 1332 FAX #: [phone] Reason: C50.412 BREAST CANCER EXAMS: CPT CODE: [id number] DUP VEIN MAXIMINO 28975 PROCEDURE: BILATERAL LOWER EXTREMITY VENOUS ULTRASOUND INDICATION: [...] Sanders RDMS (AB) (OB) Trnscb Date/Time: 08/23/2018 (5220) Juan R Orig Print D/T: S: 08/23/2018 (5619) Probe: PAGE 1 Signed Report - XR L-SPINE 2/3 [id number] 10:15:00 FAX: Lizzy Small MD [phone] [place]: St: REG FAX: Marjorie Cantor MD [phone] Name: ANTONIO BAUMAN [facility] : 1965 Age/S: 52/F [address] [place] [address] Unit #: [id number] Loc: G.[facility] X [address] Phys: Lizzy Aparicio MD Acct: [id number] Dis Date: Status: REG CLI PHONE #: [phone] Exam Date: 06/26/2018 0835 FAX #: [phone] Reason: M54.5 PERSISTENT LOW BACK PAIN EXAMS: CPT CODE: [id number] XR L-SPINE 2/3 VIEWS 57677 LUMBAR SPINE, 3VIEWS,06/26/2018 : COMPARISON: MRI elyssa [...] Technologist: Apurva Burton RT(R) Trnscrd Date/Time/By: 06/26/2018 (1019) : By: [email or web address] Orig Print D/T: S: (7563) PAGE 1 Signed Rep ort - XR PELVIS 1/2 [id number] 09:46:00 FAX: Lizzy Small MD [phone] [place]: St: REG FAX: Marjorie Cantor MD [phone] Name: ANTONIO BAUMAN EVER [facility] : 1965 Age/S: 52/F [address] [place] [address] Unit #: [id number] Loc: SILVIA [facility] X [address] Phys: Lizzy Aparicio MD Acct: [id number] Dis Date: Status: REG CLI PHONE #: [phone] Exam Date: 06/26/2018 0836 FAX #: [phone] Reason: M54.5 PERSISTENT LOW BACK PAIN EXAMS: CPT CODE: [id number] XR PELVIS 1/2 VIEWS 84046 PELVIS AP VIEW 06/26/2018 COMPARISON: Bone scan [...] Technologist: Apurva Burton RT(R) Trnscrd Date/Time/By: 06/26/2018 (46) : By: [email or web address] Orig Print D/T: S: 06/26/2018 (4883) PAGE 1 Signed Report - MRI L-SPINE W WO [id number] 09:10:00 FAX: Lizzy Small MD [phone] [place]: St: REG FAX: Marjorie Cantor MD [phone] Name: ANTONIO BAUMAN [facility] : 1965 Age/S: 52/F [address] [place] [address] Unit #: [id number] Loc: [place] [address] Phys: Lizzy Aparicio MD Acct: [id number] Dis Date: Status: REG CLI PHONE #: [phone] Exam Date: 06/26/2018 08 FAX #: [phone] Reason: C50.412 BREAST CA EXAMS: CPT CODE: [id number] MRI L-SPINE W WO CON 92057 Study: - MRI L-SPINE W WO CON 06/26/2018 7:08 AM Patient Name: ANTONIO BAUMAN MR: [id number] : 1965; Age: 52 years y/o Female [...] Signed Report (CONTINUED) FAX: Marilyn Small MD [phone] [place]: St: REG FAX: Marjorie Cantor MD [phone] Name: MITULANTONIO EVER [facility] : 1965 Age/S: 52/F [address] [place] [address] Unit #: [id number] Loc: [place] [address] Phys: Lizzy Aparicio MD Acct: [id number] Dis Date: Status: REG CLI PHONE #: [phone] Exam Date: 06/26/2018 0807 FAX #: [phone] Reason: C50.412 BREAST CA EXAMS: CPT CODE: [id number] MRI L-SPINE W WO CON 22744 <Continued> L5-S1: Symmetric disc bulge and annular fissure without foraminal or canal stenosis. IMPRESSION: Diffuse osseous metastases. No spinal cord compression, epidural dise ase, or pathologic fracture. SL: [id number] at 091 0 Reported and signed by: Kunal Arciniega M.D. CC: Lizzy Aparicio MD; Marjorie Eugene MD Technol ogist: Merced Contreras RT(R)(MR) Trnscrd Date/Time/ By: 06/26/2018 (0285) : By: [email or web address] Orig Print D/T: S: 06/26/2018 (1 963) PAGE 2 Signed Report - [facility] [id number] 13:15:00 FAX: Lizzy Small MD [phone] [place]: St: PRE FAX: Marjorie Cantor MD [phone] Name: ANTONIO BAUMAN [facility] : 1965 Age/S: 52/F [address] [place] [address] Unit #: [id number] Loc: TEDDY [place] [address] Phys: Lizzy Aparicio MD Acct: [id number] Dis Date: Status: PRE [facility] PHONE #: [phone] Exam Date: 06/22/2018 1043 FAX #: [phone] Reason: VASCULAR ACCESS FOR P AC PLACEMENT EXAMS: CPT CODE: [id number] [facility] ACCESS 60101 PROCEDURE: Placement of tunneled chest port catheter [...] Signed Report (CONTINUED) FAX: Lizzy Small MD [phone] [place]: St: PRE FAX: Marjorie Cantor MD [phone] -- N trevor: ANTONIO BAUMAN [facility] : 1965 Age/S: 52/F [address] [place] [address] Unit #: [id number] Loc: [facility] [place] [address] Phys: Magen Aparicio MD Acct: [id number] Dis D ate: Status: PRE [facility] PHONE #: Exam Date: 06/22/2018 1043 FAX #: Reason: VASCULAR ACCESS FOR PAC PLACEMENT EXAMS: CPT CODE: [id number] [facility] ACCESS 90393 <Continued> FINDINGS: Successful placement of a tunneled [...] catheter is ready for immediate use. at 1313 Reported and signed by: Michael Scherer D.O. CC: Lizzy Aparicio MD; Marjorie Eugene MD Technologist: Christiana Rowley RT(R) Trnscrd Date/Time/By: 06/22/2018 (7456) : By: [email or web address] Orig Print D/T: S: 06/22/2018 (9888) PAGE 2 Signed Report - [facility] GUID [facility]L ACC [id number] 13:15:00 FAX: Lizzy Small MD [phone] [place]: St: PRE FAX: Marjorie Cantor MD [phone] Name: ANTONIO BAUMAN [facility] : 1965 Age/S: 52/F [address] [place] [address] Unit #: [id number] Loc: [facility] [address] Phys: Lizzy Aparicio MD Acct: [id number] Dis Date: Status: PRE [facility] PHONE #: [phone] Exam Date: 06/22/2018 1043 FAX #: [phone] Reason: PAC PLACEMENT FOR CHEMOTHERAPY EXAMS: CPT CODE: [id number] FLU[facility]O GUID CTRL ACC DEV 71362 PROCEDURE: Placement of tunneled chest port catheter [...] Signed Report (CONTINUED) FAX: Lizzy Small MD [place]: St: PRE FAX: Marjorie Cantor MD [phone] -- N trevor: ANTONIO BAUMAN [facility] : 1965 Age/S: 52/F [address] [place] [address] Unit #: [id number] Loc: [place] [address] Phys: Magen Aparicio MD Acct: [id number] Dis D ate: Status: PRE SDC PHONE #: Exam Date: 06/22/2018 1043 FAX #: Reason: PAC PLACEMENT FOR CHEMOTHERAPY EXAMS: CPT CODE: [id number] FLUORO GUID CT RL ACC DEV 18455 <Continued> FINDINGS: Successful placement of a tunneled [...] catheter is ready for immediate use. at 1316 Reported and signed by: Michael Scherer D.O. CC: Lizzy Aparicio MD; Marjorie Eugene MD Technologist: Christiana Rowley RT(R) Trnscrd Date/Time/By: 06/22/2018 (5216) : By: [email or web address] Orig Print D/T: S: 06/22/2018 (8645) PAGE 2 Signed Report CBC W/AUTO DIFF [...] REVIEWED, CONSISTENT WITH AUTO DIFF. HCG SERUM [id number] 09:39:00* Test Item Value Reference Range Interpretation Comments HCG SERUM QUAL (test code = HCGQL) SERUM NEGATIVE NEGATIVE NO RED TOP IN LAB G.[facility] 06/22/18 0904PROTHROMBIN [id number] 07:58:00* Test Item Value Reference Range Interpretation [...] Infarction (to prevent recurrent infarct). THROMBOPLASTIN TIME [id number] 07:58:00* Test Item Value Reference Range Interpretation Comments THROMBOPLASTIN TIME PARTIAL (test code = PTT) 26.6 Seconds 25.0-39. 5 N Therapeutic Range: 61.8-83.8 Sec Effective 04/17/2013 CBC W/AUTO [id number] 07:53:00* Test Item Value Reference Range Interpretation [...] code = MDIFF) - NM BONE WHOLE [id number] 16:49:00 FAX: Lizzy Small MD [phone] [place]: St: REG FAX: Marjorie Cantor MD [phone] Name: ANTONIO BAUMAN [facility] : 1965 Age/S: 52/F [address] [place] [address] Unit #: [id number] [facility] [address] Phys: Lizzy Aparicio MD Acct: [id number] Dis Date: Status: REG CLI PHONE #: [phone] Exam Date: 06/19/2018 1028 FAX #: [phone] Reason: C50.412 BREAST CANCER EXAMS: CPT CODE: [id number] IN BONE WHOLE BODY 32504 Nuclear medicine whole-body bone scan 07/07/2018 HI [...] SL: BM-H Electronical ly Signed by Aria Watsno on 06/19/2018 at 3463 Reported and signed by: Beto srivastava M.D. CC: Lizzy Aparicio MD; Marjorie Eugene MD Technologist: Melissa Alaniz RT(N)(CT)(PET) Trnscrd D ate/Time/By: 06/19/2018 (5683) : By: [email or web address] Orig Print D/T: S: 04/2018 (7753) PAGE 1 Signed Repor t CBC W/AUTO [id number] 09:42:00* Test Item Value Reference Range Interpretation [...] (test code = MDIFF) NO BASIC METABOLIC [id number] 08:26:00* Test Item Value Reference Range Interpretation [...] mg/dL 8.0-10.5 L - MRI BRAIN WO/W [id number] 20:19:00 FAX: Skinny Linares [phone] [place]: St: ADM FAX: Clarice Whitfield NP [phone] FAX: Marjorie Cantor MD [phone] Name: ANTONIO BAUMAN [facility] : 1965 Age/S: 52/F [address] [place] [address] Unit #: [id number] Loc: G.[address] [place] [address] Phys: Clarice Briggs NP Acct: [id number] Dis Date: Status: ADM IN ONE #: [phone] Exam Date: 05/21/2018 193 FAX #: [phone] Reason: LLE numbness and tingling EXAMS: CPT CODE: [id number] MR I BRAIN WO/W CONT 88552 BRAIN MRI WITH AND WITHOUT CONTRAST 05/21/2018 [...] Misael Ha M.D. PAGE 1 Signed R eport (CONTINUED) FAX: Skinny Linares [phone] [place]: St: ADM FAX: Clarice Whitfield NP [phone] FA X: Marjorie Cantor MD [phone] Name: ANTONIO BAUMAN [facility] : 1965 Age/S: 52/F [address] [place] [address] Blvd Unit #: [id number] Loc: G.524 [place] [address] Phys: Clarice Briggs NP Acct: [id number] Dis Date: Status: ADM IN PHONE #: [phone] Exam Date: 06/2018 FAX #: [phone] Reason: LLE numbness a nd tingling EXAMS: CPT CODE: [id number] MRI BRAIN WO/W CONT 70 553 <Continued> CC: Skinny Rios MD; Clarice Briggs CLINICAL ACCOUNT LIAISON; Marjorie Eugene MD Technologist: Raymond Huitron RT(R)(CT) Trnscrd Date/Time/By: 05/21/2018 (2018) : By: [email or web address] Orig Print D/T: S: 05/21/2018 (2022) PAGE 2 Signed Report CBC W/AUTO [id number] 09:14:00* Test Item Value Reference Range Interpretation [...] REQUIRED (test code = MDIFF) YES WBC [id number] 09:14:00* Test Item Value Reference Range Interpretation [...] code = PLTMORPH) GIANT PLATELETS CBC W/AUTO [id number] 09:09:00* Test Item Value Reference Range Interpretation [...] REQUIRED (test code = MDIFF) YES WBC [id number] 09:09:00* Test Item Value Reference Range Interpretation Comments ANISOCYTOSIS (test code = ANISO) PLATELET ESTIMATE (test code = PLTEST) THOUSAND ADEQUATE CBC W/AUTO [id number] 09:09:00* Test Item Value Reference Range Interpretation [...] REQUIRED (test code = MDIFF) YES WBC [id number] 09:09:00* Test Item Value Reference Range Interpretation Comments ANISOCYTOSIS (test code = ANISO) PLATELET ESTIMATE (test code = PLTEST) THOUSAND ADEQUATE - CT HEAD/BRAIN W/O [id number] 07:51:00 Name: ANTONIO BAUMAN [facility] : 1965 Age/S: 52 / F [address] [place] [address] Unit #: [id number] Loc: [place] [address] Phys: Clarice Briggs CLINICAL ACCOUNT LIAISON Acct: [id number] Dis Date: Status: ADM IN PHONE #: [phone] Exam Date: 05/21/2018 1805 FAX #: [phone] Reason: Left sided numbness and tingling EXAMS: CPT CODE: [id number] CT HEAD/BRAIN W/O CONT 94273 Clinical Indication: Left-sided numbness and tingling. Comparison: [...] may be performed for complete assessment. SL: [id number] PAGE 1 Signed Report (CONTINUED) Name: ANTONIO BAUMAN [facility] : 1965 Age/S: 52 / F [address] [place] [address] Unit #: [id number] Loc: [place] [address] Phys: Clarice Briggs NP Acc t: [id number] Dis Date: Status: ADM IN PHONE #: [phone] Exam Date: 05/21/2018 1805 FAX #: [phone] Reason: Left sided numbness and tingling EXAMS: CPT CODE: [id number] CT HEAD/BRAIN W/O CONT 34986 <Continued> at 0751 Reported and signed by: Jelani Escobar M.D. CC: Clarice cantrell NP; Rachel Giron DO; Marjorie Eugene MD Technologist:Anitra Yoder, RT(R)(CT) CTDI: DLP: Trnscb Date/Time: 05/21/2018 (750) Alicia MartínezJR44 Orig Print D/T: S: 05/21/2018 (075) CTDI: DLP: PAGE 2 Signed Report BASIC METABOLIC [id number] 07:39:00* Test Item Value Reference Range Interpretation [...] CA) 7.6 mg/dL 8.0-10.5 L CBC W/AUTO [id number] 07:06:00* Test Item Value Reference Range Interpretation [...] MANUAL DIFF REQUIRED (test code = MDIFF) [id number] 17:29:00* Test Item Value Reference Range Interpretation Comments PHOSPHOROUS (test code = PHOS) 2.7 mg/dL 2.5-4.9 N [id number] 17:29:00* Test Item Value Reference Range Interpretation Comments MAGNESIUM (test code = MAG) 2.50 mg/dL 1.8-2.4 H [id number] 17:06:00* Test Item Value Reference Range Interpretation [...] 6-10 /HPF NONE SEEN A COMPREHENSIVE METABOLIC [id number] 16:16:00* Test Item Value Reference Range Interpretation [...] code = ALKP) 67 IUnit/L 20-125 N [id number] 16:16:00* Test Item Value Reference Range Interpretation Comments LIPASE (test code = LIP) 136 IUnit/L 73-393 N COMPREHENSIVE METABOLIC [id number] 16:10:00* Test Item Value Reference Range Interpretation [...] TOTAL (test code = ALKP) IUnit/L 20-125 [id number] 16:10:00* Test Item Value Reference Range Interpretation Comments LIPASE (test code = LIP) 136 IUnit/L 73-393 N PROTHROMBIN [id number] 16:06:00* Test Item Value Reference Range Interpretation [...] Infarction (to prevent recurrent infarct). THROMBOPLASTIN TIME [id number] 16:06:00* Test Item Value Reference Range Interpretation Comments THROMBOPLASTIN TIME PARTIAL (test code = PTT) 32.2 Seconds 25.0-39. 5 N Therapeutic Range: 61.8-83.8 Sec Effective 04/17/2013 CBC W/AUTO [id number] 15:54:00* Test Item Value Reference Range Interpretation [...] = MDIFF) NO - XR CHEST 1 [id number] 15:47:00 FAX: Rachel Giron DO [place]: St: REG Name: [facility] [birth year] Age/S: 52/F [address] [place] [address] Unit #: [id number] Loc: [place] [address] Phys: Rachel Giron DO Acct: [id number] Dis Date: Status: REG ER PHONE #: [phone] Exam Date: 05/20/2018 1523 FAX #: [phone] Reason: vomiting pain EXAMS: CPT CODE: [id number] XR CHEST 1 V 67035 CHEST, SINGLE VIEW H ISTORY: Chest pain and vomiting No comparison. FIN DINGS: The lungs are clear. The heart size and pulmonary vasculari ty are within normal limits. Previous left mastectomy and left axillary lymph node dissection. IMPRESSION: No act stephanie process. SL:01 Electronicall y Signed by Aria Escalante on 05/20/2018 at 1547 Reported and signed by: Med rosenberg M.D. CC: Rachel Giron DO Technologist: RT Nikkie(R) T rnsclayd Date/Time/By: 05/20/2018 (2842) : By: Juan R Hawthorne Print D/T: S: 05/20/2018 (5952) PAGE 1 Sign ed Report
[2020-01-25] MEDS ORDERED: ACETAMINOPHEN 325 MG TAB PO PRN (20:00)
[2020-01-25] MEDS ORDERED: HYDRALAZINE HCL 20 MG/ML VIAL IV PRN (20:00)
[2020-01-25 23:00] VITALS: BP 107/66
--- NOTE | 2020-01-25 23:00 | NUR ---
Received patient from ER, alert, not in distress, transferred comfortably to hospital bed. Call light within easy reach, patient oriented to room , explained visiting hours, verbalized understanding. Patient is for blood transfusion of 2 units PRBC, consent signed in the chart, will give blood products once available. Will continue to monitor patient closely
[2020-01-25] MEDS ORDERED: GABAPENTIN600 MG PO (23:09)
[2020-01-25] MEDS ORDERED: CARAFATE1 GM/10 ML PO (23:27)
[2020-01-25] MEDS ORDERED: DILAUDID4 MG PO (23:28)
[2020-01-25] MEDS ORDERED: INFLUENZA VIRUS VAC SPLIT INJ 0.5 ML SYR IM SCH (23:30)
[2020-01-25 23:36] VITALS: BP 107/66
[2020-01-25 23:37] VITALS: BP 107/66
[2020-01-26] MEDS ORDERED: SODIUM CHLORIDE 0.9% 50ML 50 ML ONE (01:28)
[2020-01-26] MEDS ORDERED: IOPAMIDOL 370 MG/ML 200 ML INFUS..BTL INJ ONE (01:28)
[2020-01-26] MEDS ORDERED: SODIUM CHLORIDE 0.9% 250ML 250 ML ONE (02:02)
[2020-01-26 02:17] LABS: CREATINE KINASE 67 IU/L (29-168)
--- NOTE | 2020-01-26 02:25 | NUR ---
first unit PRBC started
[2020-01-26 04:25] VITALS: BP 112/70
--- NOTE | 2020-01-26 05:00 | NUR ---
first unit completed, no transfusion reaction noted, lasix given IV as ordered
[2020-01-26] MEDS: FUROSEMIDE INJ 10 MG/ML 2 ML VIAL IV PRN ×2 (05:08→09:04)
--- NOTE | 2020-01-26 05:45 | NUR ---
second unit PRBC started
[2020-01-26 06:09] LABS: CREATINE KINASE MB 0.4 ng/mL (0-5.0)
[2020-01-26 06:29] LABS: ALANINE AMINOTRANSFERASE 8 IU/L (0-55); ALBUMIN 3.2 g/dL (3.5-5.0); ALKALINE PHOSPHATASE 128 IU/L (40-150); ANION GAP 13.7 mmol/L (8-16); BLOOD UREA NITROGEN 14 mg/dL (7-26); BUN/CREATININE RATIO 21 (6-25); CALCIUM 8.9 mg/dL (8.4-10.2); CARBON DIOXIDE 24 mmol/L (22-29); CHLORIDE 104 mmol/L (98-107); CREATININE, SERUM 0.66 mg/dL (0.57-1.11); EST GLOMERULAR FILTRATION RATE > 60 ML/MIN (60-); GLUCOSE 93 mg/dL (74-118); POTASSIUM 3.7 mmol/L (3.5-5.1); SODIUM 138 mmol/L (136-145)
--- NOTE | 2020-01-26 07:00 | NUR ---
Received report from off going nurse. Pt lying in bed and no apparent distress. Bed in lowest position. Pt denies pain 0/10.
--- NOTE | 2020-01-26 07:05 | NUR ---
walking rounds done with diamond kuhn
[2020-01-26] MEDS ORDERED: PANTOPRAZOLE SOD 40 MG TABEC PO SCH (07:30)
[2020-01-26 08:40] VITALS: BP 112/73
[2020-01-26] MEDS ORDERED: ASPIRIN 81 MG CHEW TAB PO SCH (09:00)
[2020-01-26 09:06] VITALS: BP 112/73
[2020-01-26] MEDS ORDERED: PROTONIX40 MG/ML PO (09:23)
[2020-01-26] MEDS ORDERED: ASPIRIN CHEW81 MG PO (09:23)
[2020-01-26 10:58] LABS: BASOPHILS # (AUTO) 0.1 (0.0-0.1); BASOPHILS % 1.3 % (0.0-1.0); EOSINOPHILS % 0.4 % (0.0-6.0); HEMATOCRIT 30.6 % (34.2-44.1); LYMPHOCYTES # (AUTO) 1.8 (1.0-3.2); LYMPHOCYTES % 32.2 % (18.0-39.1); MEAN CORPUSCULAR HEMOGLOBIN 27.8 pg (28-32); MEAN CORPUSCULAR HGB CONC 32.7 g/dL (31-35); MONOCYTES # (AUTO) 0.6 (0.2-0.8); MONOCYTES % 10.2 % (4.4-11.3); NEUTROPHILS # (AUTO) 2.7 (2.1-6.9); NEUTROPHILS % 48.9 % (38.7-80.0); PLATELET COUNT 103 x10e3/uL (140-360); RED CELL DISTRIBUTION WIDTH 18.3 % (11.7-14.4)
[2020-01-26 12:49] VITALS: BP 117/70
[2020-01-26 14:18] LABS: CREATINE KINASE 75 IU/L (29-168)
[2020-01-26 15:12] LABS: HEMATOCRIT 30.6 % (34.2-44.1); HEMOGLOBIN 10.1 g/dL (12.0-16.0)
[2020-01-26 15:53] VITALS: BP 117/71
--- NOTE | 2020-01-26 16:53 | NUR ---
right chest collette cath access Flushed with heparin as ordered and discontinued as ordered. placed 2x2 gauze and tegaderm Addendum: 01/26/20 at 1657 by SUNIL VEGAS RN No signs of infiltration noted
[2020-01-26] MEDS ORDERED: INFLUENZA VIRUS VAC SPLIT INJ 0.5 ML SYR IM ONE (17:00)
[2020-01-26] MEDS ORDERED: HEPARIN 500 UNITS/5ML MDV INJ ONE (17:00)
--- NOTE | 2020-01-26 17:17 | NUR ---
Pt off floor via wheelchair for home. Pt in no apparent distress. Pt denies pain 0/10.
--- NOTE | 2020-01-27 03:33 | Discharge Summary ---
ADMISSION DIAGNOSES: Chest pain, elevated D-dimer, breast cancer with mets, transaminitis. DISCHARGE DIAGNOSES: Chest pain, elevated D-dimer, breast cancer with mets, transaminitis, rule out acute coronary syndrome, rule out pulmonary embolism. HISTORY: Breast cancer with mets to bone and liver, hiatal hernia. SURGICAL HISTORY: Left mastectomy, cholecystectomy, tubal ligation. FAMILY HISTORY: Noncontributory. SOCIAL HISTORY: The patient admits to smoking less than half a pack of cigarettes a day. HOSPITAL COURSE: A 54-year-old female admits with complaints of substernal chest pain described as sharp and intermittent that began while lying in bed. Nothing improves or worsens the pain. They usually last only a few seconds before going away spontaneously. She denies dizziness and diaphoresis, bright red blood per rectum and melena. She does admit to shortness of breath for the last few months. On admission, troponins were negative x3. Her BNP was within normal limits. Chest x-ray was negative. Echo showed an EF 43%. It appears that she does have chronic systolic CHF, but is not on fluid overload. The patient's D-dimer was elevated at 3.29, but the CTA was negative for PE. Her hemoglobin on admission was 6.9, likely due to cancer. She was given 2 units of PRBCs and her hemoglobin remained stable after that. She was discharged home and follow up with primary care in 1 to 2 weeks. She was given new prescriptions for aspirin and Protonix. She was advised to take iron and vitamin C acgv-afk-ibjnokj. The patient understands instructions and agrees to plan. Dictated by aGil Avelar NP MD CHINO Doherty/MODL /[id number]
== END 2020-01-26 17:17 | disposition home or self-care (01) ==
LOC: ER 17:03 → INTOOBSV 19:17 → ERHOLD 19:17 → MED/SURG 22:45
PROVIDERS: ADMIT Internal Medicine; ATTEND Internal Medicine
DX: R07.9 Chest pain, unspecified (principal); C78.7 Secondary malignant neoplasm of liver and intrahepatic bile duct; C79.51 Secondary malignant neoplasm of bone; I11.0 Hypertensive heart disease with heart failure; I50.22 Chronic systolic (congestive) heart failure; Z90.12 Acquired absence of left breast and nipple; C50.912 Malignant neoplasm of unspecified site of left female breast; Z11.59 Encounter for screening for other viral diseases; F17.210 Nicotine dependence, cigarettes, uncomplicated
CPT/HCPCS: 36415 ×2; 71045; 71260; 80053 ×2; 82550 ×2; 82553 ×2; 83880; 84484 ×2; 85014; 85018; 85025 ×2; 85379; 85610; 85730; 86850; 86900; 86920; 93005; 93306; 99284; G0378 ×2; J1170; J1940; J7030; J7050; P9016; Q9967; S0164; U0002